=== PATIENT | female | born 1950 | race Caucasian/White ===

== ENCOUNTER → 2017-10-28 | Outpatient (CLI) | payer BC ==
--- NOTE | 2017-10-28 17:16 | US ---
HISTORY: Chronic renal disease. Study: Renal ultrasound Comparison: None. Technique: Multiple bojorquez scale and color flow Doppler images of the kidneys were obtained. The regio n of the urinary bladder was partially decompressed and not well evaluated. Findings: The right kidney is normal in echotexture and size. The right kidney measures 12 x 6 x 5 cm. No focal mass, hydronephrosis, or stones identified. The left kidney is unremarkable in its echotexture and size. The left kidney measures 9 x 5 x 5 cm. N o focal mass, hydronephrosis, or stone can be seen within the left kidney. IMPRESSION: 1. Unremarkable evaluation of the kidneys. Reported By:
== END ==
LOC: RAD 13:40
PROVIDERS: ATTEND Internal Medicine
DX: N18.2 Chronic kidney disease, stage 2 (mild) (principal)
CPT/HCPCS: 76770

== ENCOUNTER → 2017-11-06 | Outpatient (CLI) | payer BC | LOC: LAB 16:42 | PROVIDERS: ATTEND Internal Medicine | DX: Z79.899 Other long term (current) drug therapy (principal) ==

== ENCOUNTER 2020-01-27 19:40 | Inpatient (IN) ==
[2020-01-27] MEDS ORDERED: NS 1000 ML 1,000 ML ONE (19:55)
--- NOTE | 2020-01-27 20:08 | RAD ---
HISTORYPATIENT AMBULATORY INTO ED WITH C/O SOB AND DEHYDRATION; PATIENT WAS INFORMED TODAY BY PCP THAT SHE IS COVID +; PATIENT IS PALE AND DIAPHORETICSTUDYCHEST, 1 [id number]/20/2020FINDINGSThe heart is borderline enlarged but unchanged. The pulmonary vessels are normal. There is some hazy opacity along the left lung base laterally which is more apparent. No effusion is seen.IMPRESSIONHazy left basilar opacity seen laterally which could represent early infiltrate from pneumonia but is ill-defined. Recommend short-term follow-up.Electronically signed by: MATIAS KRAFT (Jan 27, 2020 20:07:58)
[2020-01-27 20:16] LABS: BASOPHILS % (AUTO) 0.1 % (0.2-1.0); HEMATOCRIT 41.3 % (36.0-47.0); LYMPHOCYTES # (AUTO) 0.6 X10^3/uL (1.3-2.9); LYMPHOCYTES % (AUTO) 20.1 % (21.0-51.0); MEAN CORPUSCULAR HEMOGLOBIN 28.5 pg (27.0-34.0); MEAN CORPUSCULAR HGB CONC 33.9 g/dL (33.0-35.0); MEAN CORPUSCULAR VOLUME 84.2 fL (80.0-100.0); MONOCYTES # (AUTO) 0.2 x10^3/uL (0.3-0.8); MONOCYTES % (AUTO) 8.5 % (0.0-13.0); NEUTROPHILS # (AUTO) 2.1 x10^3/uL (2.2-4.8); NEUTROPHILS % (AUTO) 71.3 % (42.0-75.0); PLATELET COUNT 142 X10^3/uL (150.0-450.0); RED CELL DISTRIBUTION WIDTH 13.8 % (11.6-16.5); WHITE BLOOD COUNT 2.9 X10^3/uL (3.6-10.0)
--- NOTE | 2020-01-27 20:24 | DR.SOBA ---
HPI Time Seen Time Seen by Provider: 01/27/20 20:07 Primary Care Physician Primary Care Physician: HUSSAIN MILLAN Complaints Chief Complaint Doctors Comments: A 69 y/o female presenting with SOB ongoing x 6 days ago. She has non-productive cough and a headache. She denies fever or chills. She was tested for COVID-19 2 days ago and got her positive result today. She had mentioned to her PCP about the dyspnea and it was recommended to her to go to an ED to be evaluated. She was noted with O2 sat in the 80s on R/A while being triaged. Chief Complaint:: PATIENT AMBULATORY INTO ED WITH C/O SOB AND DEHYDRATION; PATIENT WAS INFORMED TODAY BY PCP THAT SHE IS COVID +; PATIENT IS PALE AND DIAPHORETIC UPON ARRIVAL; O2 SAT ON ROOM AIR NOTED AT 84%. PATIENT IMMEDIATELY PLACED ON NC AT 2LPM; 02 SAT UP TO 91%. Self Treatment fo Chief Complaint: PRESCRIPTION MEDS PER PCP COVID-19 Coronavirus risk:travel/contact w/high risk person: Yes Has patient experienced Coronavirus symptoms: Yes Coronavirus symptoms experienced: Fever and Shortness of Breath Reviewed Nurses Notes Reviewed: Yes Source History Provided: Patient and Family Member Mode of Arrival Mode of Arrival: Ambulatory Timing Onset of Chief Complaint: 01/25/20 Context Onset:: At Rest and With Light Exertion PE Risk Factors:: None History of:: None Currently on:: Neither Prehospital Care:: None Modifying Factors Worsens:: Exertion Improves:: Nothing PMH PMH Past Medical History: Yes Past Medical History: GERD and Hypertension Past Medical History Comment: COVID + Past Surgical History: No Surgical History: Hysterectomy and Other Family History History of Family Medical Conditions: No Family Medical History: Diabetes Mellitus and Hypertension Social History Alcohol Use: None Do you use any recreational Drugs:: No Lives With: Spouse Lives Where: Home Travel Risk Coronavirus risk:travel/contact w/high risk person: Yes Has patient experienced Coronavirus symptoms: Yes Coronavirus symptoms experienced: Fever and Shortness of Breath Infectious screening Have you traveled outside the country in the last 6 months?: No Isolation: Droplet ROS Review of Systems Constitutional: No Symptoms Reported Eyes: No Symptoms Reported ENTM: No Symptoms Reported Respiratoy: Non-Productive Cough and Short of Breath Cardiovascular: No Symptoms Reported Gastrointestinal/Abdominal: No Symptoms Reported Genitourinary: No Symptoms Reported Neurological: Headache Musculoskeletal: No Symptoms Reported Integumentary: No Symptoms Reported Hematologic/Lymphatic: No Symptoms Reported Endocrine: No Symptoms Reported Psychiatric: No Symptoms Reported PE Vital Signs Vitals: Pulse Rate 97 Respiratory Rate 21 Blood Pressure [Left Arm] 147/67 Blood Pressure 151/68 O2 Sat by Pulse Oximetry 97 General Limitations: No Limitations General Appearance: Alert and In No Apparent Distress Head Head Exam: Normal Inspection, Atraumatic and Normocephalic Eyes Eye exam: Normal Appearance and EOMI ENT ENT Exam: Normal Exam, Normal Oropharynx, Normal External Ear Exam and Mucous Membranes Moist Neck Neck Exam: Normal Inspection, Full ROM and Trachea Midline Chest Chest Inspection: Normal Inspection and Symmetric Chest Wall Rise Respiratory Respiratory Exam: Bilateral: Wheezing and Bilateral: Rhonchi Cardiovascular Cardiovascular Exam: Regular Rate, Normal Rhythm, Normal Heart Sounds, +S1 and +S2 Abdominal Exam Abdominal Exam: Normal Inspection, Normal Bowel Sounds and Soft Extremities Extremities Exam: Normal Inspection and Full ROM Back Back Exam: Normal Inspection and Full ROM Neurologic Neurological Exam: Alert and Oriented X3 Psychiatric Psychiatric Exam: Normal Affect and Normal Mood Skin Skin Exam: Dry and Normal Color COURSE Reevaluation 1st: Unchanged Education/Counseling Education/Counseling: Patient, Family, Education and Counseling Educated On: Treatment, Diagnosis, Prognosis and Needs for Follow Up ROR Labs Reviewed Laboratory Results Reviewed?: Yes Result Diagrams: 01/27/20 20:08 01/27/20 20:08 Laboratory: WBC 2.9 X10^3/uL (3.6-10.0) L 01/27/20 20:08 RBC 4.90 X10^6/uL (3.5-5.4) 01/27/20 20:08 Hgb 14.0 g/dL (12.0-16.0) 01/27/20 20:08 Hct 41.3 % (36.0-47.0) 01/27/20 20:08 MCV 84.2 fL (80.0-100.0) 01/27/20 20:08 MCH 28.5 pg (27.0-34.0) 01/27/20 20:08 MCHC 33.9 g/dL (33.0-35.0) 01/27/20 20:08 RDW 13.8 % (11.6-16.5) 01/27/20 20:08 Plt Count 142 X10^3/uL (150.0-450.0) L 01/27/20 20:08 MPV 7.0 fL (7.4-11.0) L 01/27/20 20:08 Neut % (Auto) 71.3 % (42.0-75.0) 01/27/20 20:08 Lymph % (Auto) 20.1 % (21.0-51.0) L 01/27/20 20:08 [place] % (Auto) 8.5 % (0.0-13.0) 01/27/20 20:08 Eos % (Auto) 0.0 % (0.9-2.9) L 01/27/20 20:08 Baso % (Auto) 0.1 % (0.2-1.0) L 01/27/20 20:08 Neut # (Auto) 2.1 x10^3/uL (2.2-4.8) L 01/27/20 20:08 Lymph # (Auto) 0.6 X10^3/uL (1.3-2.9) L 01/27/20 20:08 [place] # (Auto) 0.2 x10^3/uL (0.3-0.8) L 01/27/20 20:08 Eos # (Auto) 0.0 x10^3/uL (0.0-0.2) 01/27/20 20:08 Baso # (Auto) 0.0 X10^3/uL (0.0-0.1) 01/27/20 20:08 Absolute Nucleated RBC 0.0 /100WBC 01/27/20 20:08 Sample Site Rr 01/27/20 20:16 ABG pH 7.480 (7.35-7.45) H 01/27/20 20:16 ABG pCO2 57.0 mmHg (35.0-45.0) H* 01/27/20 20:16 ABG pO2 58.0 mmHg (80.0-100.0) L 01/27/20 20:16 ABG HCO3 42.4 mmol/L (22-26) H* 01/27/20 20:16 ABG O2 Saturation 92.0 % (90-100) 01/27/20 20:16 ABG Base Excess 16.2 mmol/L (-2.0-2.0) H 01/27/20 20:16 Dominik Test Pos 01/27/20 20:16 A-a Gradient 70.0 mmHg 01/27/20 20:16 FiO2 28.0 01/27/20 20:16 Blood Gas Comments Wilian well sw 01/27/20 20:16 Sodium 140 mmol/L (136-145) 01/27/20 20:08 Corrected Sodium 141 mmol/L (136-145) 01/27/20 20:08 Potassium 3.2 mmol/L (3.5-5.1) L 01/27/20 20:08 Chloride 96 mmol/L (98-107) L 01/27/20 20:08 Carbon Dioxide 36.8 mmol/L (21-32) H 01/27/20 20:08 BUN 17 mg/dL (7-18) 01/27/20 20:08 Creatinine 1.31 mg/dL (0.55-1.02) H 01/27/20 20:08 Est GFR (MDRD) Af Amer 52 (>60) L 01/27/20 20:08 Est GFR (MDRD) Non-Af 43 (>60) L 01/27/20 20:08 Glucose 149 mg/dL (65-99) H 01/27/20 20:08 Calcium 8.7 mg/dL (8.5-10.1) 01/27/20 20:08 Corrected Calcium 9.3 mg/dL (8.5-10.1) 01/27/20 20:08 Ferritin 396 ng/mL (8-252) H 01/27/20 20:08 Total Bilirubin 0.70 mg/dL (0.2-1.0) 01/27/20 20:08 AST 49 Units/L (15-37) H 01/27/20 20:08 ALT 27 Units/L (12-78) 01/27/20 20:08 Alkaline Phosphatase 85 Units/L (46-116) 01/27/20 20:08 C-Reactive Protein 49.80 mg/L (0-3.0) H 01/27/20 20:08 Total Protein 7.7 g/dL (6.4-8.2) 01/27/20 20:08 Albumin 3.2 g/dL (3.4-5.0) L 08/12/20 20:08 Globulin 4.5 g/dL (2.5-4.5) 01/27/20 20:08 Albumin/Globulin Ratio 0.7 Ratio (1.1-2.1) L 01/27/20 20:08 Opioid Opioid Risk Tool Age ([place] box if 16-45): No History of Preadolescent Sexual Abuse: No Total: 0 Total Score Risk Category: Low Risk Copyright: [facility] predicting aberrant behaviors Diagnosis Discharge Problem: Lobar pneumonia, Acute hypokalemia, COVID-19 virus infection ADDITIONAL NOTES Additional Notes Additional Notes: [id number] 1950 Sex: F Location: ER Order Number(s): [id number] Procedure(s):CHEST, 1 VIEW Ordering Physician: KATHERINE BRANTLEY Primary Care: MILI MILLAN Service Date: 01/27/20 Service Time: 1950 HISTORY PATIENT AMBULATORY INTO ED WITH C/O SOB AND DEHYDRATION; PATIENT WAS INFORMED TODAY BY PCP THAT SHE IS COVID +; PATIENT IS PALE AND DIAPHORETIC STUDY CHEST, 1 VIEW COMPARISON 07/06/2019 FINDINGS The heart is borderline enlarged but unchanged. The pulmonary vessels are normal. There is some hazy opacity along the left lung base laterally which is more apparent. No effusion is seen. IMPRESSION Hazy left basilar opacity seen laterally which could represent early infiltrate from pneumonia but is ill-defined. Recommend short-term follow-up. Electronically signed by: MATIAS KRAFT (Jan 27, 2020 20:07:58)
[2020-01-27 20:27] LABS: ALBUMIN 3.2 g/dL (3.4-5.0); CALCIUM 8.7 mg/dL (8.5-10.1); CARBON DIOXIDE 36.8 mmol/L (21-32); COR CA(FOR HYPOALB) 9.3 mg/dL (8.5-10.1); CREATININE 1.31 mg/dL (0.55-1.02); TOTAL PROTEIN 7.7 g/dL (6.4-8.2)
[2020-01-27 20:41] LABS: ABG BASE EXCESS 16.2 mmol/L (-2.0-2.0)
[2020-01-27 20:42] LABS: ABG ALLEN TEST POS; ABG HCO3 42.4 mmol/L (22-26)
[2020-01-27] MEDS ORDERED: ROCEPHIN VIAL 1 GRAM 1 G in NS 100 ML IV + SPIKE MINIBAG* 100 ML IV ONE (21:47)
[2020-01-27] MEDS ORDERED: NS 100 ML IV + SPIKE MINIBAG* 100 ML IV ONE (21:49)
[2020-01-27] MEDS ORDERED: ROCEPHIN VIAL 1 GRAM ONE (21:49)
[2020-01-27] MEDS ORDERED: POTASSIUM CHLORIDE LIQ 20 MEQ UDC PO ONE (22:34)
[2020-01-27] MEDS ORDERED: POTASSIUM CHLORIDE LIQ 20 MEQ UDC ONE (22:38)
[2020-01-27] MEDS ORDERED: NS 1000 ML 1,000 ML IV SCH (23:00)
[2020-01-28] MEDS ORDERED: NS 1000 ML 1,000 ML ONE (01:18)
[2020-01-28] MEDS ORDERED: NS 100 ML IV 100 ML IV ONE (01:18)
[2020-01-28] MEDS ORDERED: ASCORBIC ACID INJ MULTI-DOSE VIAL IV ONE (01:20)
[2020-01-28 01:56] LABS: ABG BASE EXCESS 16.1 mmol/L (-2.0-2.0)
[2020-01-28 01:57] LABS: ABG ALLEN TEST POS; ABG HCO3 42.7 mmol/L (22-26)
[2020-01-28] MEDS: ASCORBIC ACID INJ MULTI-DOSE VIAL 1,500 MG in NS 100 ML IV 100 ML IV SCH ×2 (02:22→09:05)
[2020-01-28] MEDS: NS 1000 ML 1,000 ML IV SCH (04:25)
[2020-01-28] MEDS ORDERED: XANAX ONE (04:27)
[2020-01-28] MEDS: XANAX PO SCH ×3 (05:37→22:43)
[2020-01-28 06:13] LABS: BASOPHILS % (AUTO) 0.3 % (0.2-1.0); EOSINOPHILS % (AUTO) 0.1 % (0.9-2.9); HEMATOCRIT 36.7 % (36.0-47.0); HEMOGLOBIN 12.4 g/dL (12.0-16.0); LYMPHOCYTES % (AUTO) 27.5 % (21.0-51.0); MEAN CORPUSCULAR HEMOGLOBIN 28.5 pg (27.0-34.0); MEAN CORPUSCULAR HGB CONC 33.8 g/dL (33.0-35.0); MEAN CORPUSCULAR VOLUME 84.4 fL (80.0-100.0); MEAN PLATELET VOLUME 7.5 fL (7.4-11.0); MONOCYTES # (AUTO) 0.4 x10^3/uL (0.3-0.8); MONOCYTES % (AUTO) 10.5 % (0.0-13.0); NEUTROPHILS # (AUTO) 2.3 x10^3/uL (2.2-4.8); NEUTROPHILS % (AUTO) 61.6 % (42.0-75.0); PLATELET COUNT 130 X10^3/uL (150.0-450.0); RED BLOOD COUNT 4.34 X10^6/uL (3.5-5.4); RED CELL DISTRIBUTION WIDTH 13.7 % (11.6-16.5); WHITE BLOOD COUNT 3.8 X10^3/uL (3.6-10.0)
[2020-01-28 07:27] LABS: ALANINE AMINOTRANSFERASE 21 Units/L (12-78); ALBUMIN 2.7 g/dL (3.4-5.0); ALKALINE PHOSPHATASE 64 Units/L (46-116); ASPARTATE AMINO TRANSFERASE 36 Units/L (15-37); BLOOD UREA NITROGEN 17 mg/dL (7-18); CALCIUM 7.7 mg/dL (8.5-10.1); CARBON DIOXIDE 37.5 mmol/L (21-32); CHLORIDE 101 mmol/L (98-107); COR CA(FOR HYPOALB) 8.7 mg/dL (8.5-10.1); CREATININE 1.05 mg/dL (0.55-1.02); SODIUM 142 mmol/L (136-145); TOTAL PROTEIN 6.2 g/dL (6.4-8.2); eGFR NON BLACK RACES 56 (>60)
[2020-01-28] MEDS ORDERED: POTASSIUM CHLORIDE LIQ 20 MEQ UDC PO PRN (08:02)
[2020-01-28] MEDS ORDERED: MICRO K EXTEN CAP 10 MEQ PO PRN (08:02)
[2020-01-28] MEDS ORDERED: POTASSIUM CHL 60 MEQ/NS 0.45% 500 ML IV PRN (08:02)
[2020-01-28] MEDS ORDERED: POTASSIUM CHL 40 MEQ/NS 0.45% 500 ML IV PRN (08:02)
[2020-01-28] MEDS ORDERED: LEXAPRO ONE (08:44)
[2020-01-28] MEDS ORDERED: PATIENT'S HOME MEDICATION (Levocetirizine 5 MG) PO SCH (09:00)
[2020-01-28] MEDS ORDERED: VITAMIN A PO SCH (09:00)
[2020-01-28] MEDS ORDERED: MEMANTINE DONEPEZIL PO SCH (09:00)
[2020-01-28] MEDS ORDERED: PLAQUENIL PO SCH (09:00)
[2020-01-28] MEDS ORDERED: VITAMIN D (1.25MG) PO SCH (09:00)
[2020-01-28] MEDS ORDERED: DECADRON TAB PO SCH (09:00)
[2020-01-28] MEDS: ASPIRIN EC 81 MG PO SCH (09:05)
[2020-01-28] MEDS: ZINC SULFATE PO SCH ×2 (09:06→20:17)
[2020-01-28] MEDS: ZyrTEC TAB 10 MG PO SCH (09:06)
[2020-01-28] MEDS: PriLOSEC PO SCH (09:07)
[2020-01-28] MEDS: HYDROCHLOROTHIAZIDE 25 MG TAB PO SCH (09:08)
[2020-01-28] MEDS: PLAVIX PO SCH (09:09)
[2020-01-28] MEDS: LEXAPRO PO SCH (09:10)
[2020-01-28] MEDS: LOVENOX INJ 30 MG SYR SC SCH ×2 (09:10→20:21)
[2020-01-28] MEDS ORDERED: SOLU-Medrol 125 MG VIAL ONE (10:13)
[2020-01-28] MEDS ORDERED: ZITHROMAX INJ 500 MG VIAL IV ONE (10:14)
[2020-01-28] MEDS ORDERED: NS 250 ML IV 250 ML IV ONE (10:17)
[2020-01-28] MEDS: SOLU-Medrol 40 MG VIAL IVP SCH ×3 (10:50→22:43)
[2020-01-28] MEDS: ZITHROMAX INJ 500 MG VIAL 500 MG in NS 250 ML IV 250 ML IV SCH (11:01)
[2020-01-28] MEDS: PULMICORT NEB TX 0.5 MG NEB SCH ×3 (13:00→21:00)
[2020-01-28] MEDS: DUONEB 0.5 MG/3 MG (3 mL) NEB PRN ×2 (13:00→21:00)
[2020-01-28] MEDS: K-DUR TAB 20 MEQ PO PRN (13:35)
[2020-01-28] MEDS: MAGNESIUM SULFATE 1 GRAM/100 mL PREMIX 1 GM/100 ML BAG IV PRN ×2 (16:00→17:54)
--- NOTE | 2020-01-28 21:07 | DR.H&P ---
H&P - History & Physical for Day of: H&P Date: 01/28/20 - Chief Complaint Chief Complaint: COUGH, SOB, HEADACHE, COVID POSITIVE - History of Present Illness History of Present Illness: IS A 69 YEAR OLD PATIENT OF HUSSAIN MILLAN. SHE PRESENTED TO THE HOSPITAL WITH REPORTS OF SHORTNESS OF BREATH, NON- PRODUCTIVE COUGH, AND HEADACHE. SYMPTOMS HAVE BEEN PRESENT FOR THE PAST 6 DAYS. SHE REPORTS THAT SHE RECEIVED A POSITIVE COVID-19 RESULT YESTERDAY. PATIENT REPORTS THAT HER OXYGEN SATURATIONS WERE IN THE LOW 80s ON ROOM AIR. SHE REPORTS TAKING AZITHROMYCIN 250MG DAILY AND HYDROXYCHLOROQUINE 200MG PO BID X 1 DAY. SHE DENIES IMPROVEMENT IN SYMPTOMS. HER PAST MEDICAL HISTORY INCLUDES: CVA, CAD, HTN, PNEUMONIA, GERD, HYSTERECTOMY, ANXIETY, DEPRESSION, BOWEL RESECTION, HYSTERECTOMY, AND TONSILLECTOMY. ON ARRIVAL TO THE ER, VITALS WERE 9 8.3-66-24-84%NC-115/73. LABS WERE OBTAINED. ABNORMAL LAB VALUES INCLUDE THE FOLLOWING: WBC 2.9, PLT COUNT 142, POTASSIUM 3.2, CHLORIDE 96, CARBON DIOXIDE 36.8, CREATININE 1.31, GLUCOSE 149, FERRITIN 396, AST 49, CRP 49.80, ALBUMIN 3.2. COVID-19 POSITIVE. A CHEST XRAY WAS OBTAINED. ABNORMAL LAB VALUES INCLUDE THE FOLLOWING: Hazy left basilar opacity seen laterally which could represent early infiltrate from pneumonia but is ill-defined. SHE WAS PLACED ON NASAL CANNULA AT 3L/MIN IN THE ER. WHEN TAKEN OFF OF OXYGEN, HER SATURATIONS DROPPED TO 80 AGAIN. SHE WAS GIVEN ROCEPHIN 1G IV X 1, POTASSIUM 20MEQ X 1 IN THE ER. SHE WAS ADMITTED FOR FURTHER EVALUATION AND TREATMENT OF PNEUMONIA DUE TO COVID- 19, HYPOXIA, AND HYPOKALEMIA. SHE WAS STARTED ON NORMAL SALINE AT [facility], AZITHROMYCIN 500MG IV DAILY, REMDESIVIR 200MG IV X 1 DOSE, THEN 100MG IV DAILY, SOLU-MEDROL 80MG IV Q8H, DUONEBS PRN, PULMICORT NEBS BID, LOVENOX 30MG SC BID, THE POTASSIUM AND MAGNESIUM PROTOCOLS, AND HOME MEDICATIONS WERE RESUMED. WE WILL ORDER CONVALESCENT PLASMA TO BE TRANSFUSED WHEN IT IS AVAILABLE. OTHERWISE, WE PLAN TO FOLLOW UP WITH AM LABS AND CONTINUE TO MONITOR. - Past Medical History Past Medical History: Anxiety, Coronary Artery Disease, CVA, Depression, GERD, Hypertension - Past Surgical History Surgical History: Abdominal Surgery, Bowel Resection, Hysterectomy, Tonsillectomy - Family History Family Medical History: Diabetes Mellitus, Hypertension - Social History Alcohol Use: None Drug Use: None - Medications Home Medications: levofloxacin Allergy (Verified 01/27/20 21:24) CONTINUE taking the following medications azithromycin 250 mg PO DAILY 01/27/20 [History] clopidogrel 75 mg PO DAILY 01/27/20 [History] hydrochlorothiazide 50 mg PO DAILY 01/27/20 [History] hydroxychloroquine 200 mg PO BID 01/27/20 [History] meclizine 25 mg PO TID 01/27/20 [History] memantine-donepezil [Namzaric] 1 cap PO DAILY 01/27/20 [History] omeprazole 40 mg PO DAILY 01/27/20 [History] prednisone 20 mg PO DAILY 01/27/20 [History] - Review of Systems Constitutional: See HPI, Weakness, Malaise Eyes: No Symptoms Reported ENT: No Symptoms Reported Respiratory: See HPI, Cough, Shortness of Breath, SOB with Excertion Cardiovascular: No Symptoms Reported Gastrointestinal: No Symptoms Reported Genitourinary: No Symptoms Reported Musculoskeletal: No Symptoms Reported Skin: No Symptoms Reported Neurological: Weakness - Physical Exam Vital Signs: Temperature 97.5 F Pulse Rate [Left Brachial] 65 Pulse Rate 79 Respiratory Rate 18 Blood Pressure [Left Arm] 121/58 Blood Pressure 151/68 O2 Sat by Pulse Oximetry 92 Oriented: Normal Eyes: Normal Ear: Normal Nose: Normal Throat: Normal Respiratory: Wheezes Throughout Cardiovascular: Normal : Normal Auscultation: Bowel Sounds: Normal Palpation: Normal Tenderness: Normal Skin: Normal Musculoskeletal: Normal Psychiatric: Normal Mood Description: Calm Affect: Normal Speech Pattern: Clear - Assessment/Plan (1) Pneumonia due to 2019 novel coronavirus Status: Acute Plan: NORMAL SALINE AT [facility], AZITHROMYCIN 500MG IV DAILY, REMDESIVIR 200MG IV X 1 DOSE, THEN 100MG IV DAILY, SOLU-MEDROL 80MG IV Q8H, DUONEBS PRN, PULMICORT NEBS BID, LOVENOX 30MG SC BID, THE POTASSIUM AND MAGNESIUM PROTOCOLS, AND HOME MEDICATIONS WERE RESUMED. WE WILL ORDER CONVALESCENT PLASMA TO BE TRANSFUSED WHEN IT IS AVAILABLE. (2) Hypoxia Status: Acute (3) Acute hypokalemia Status: Acute (4) Lobar pneumonia Status: Acute - Allergies Allergies/Adverse Reactions: Allergies Allergy/AdvReac Type Severity Reaction Status Date / Time levofloxacin Allergy Verified 01/27/20 21:24
[2020-01-29 04:25] LABS: ABG BASE EXCESS 7.3 mmol/L (-2.0-2.0)
[2020-01-29] MEDS: ROBITUSSIN DM PO PRN ×3 (04:25→20:15)
[2020-01-29 04:27] LABS: ABG HCO3 33.1 mmol/L (22-26)
[2020-01-29 04:28] LABS: ABG ALLEN TEST POS
[2020-01-29] MEDS: DUONEB 0.5 MG/3 MG (3 mL) NEB PRN ×2 (04:45→10:20)
[2020-01-29 05:06] LABS: BILIRUBIN,URINE NEGATIVE (NEGATIVE); BLOOD/HEMOGLOBIN,URINE NEGATIVE (NEGATIVE); GLUCOSE, URINE 1+ (NEGATIVE); KETONES,URINE 1+ (NEGATIVE); LEUKOCYTE ESTERASE ,URINE NEGATIVE (NEGATIVE); NITRITES,URINE NEGATIVE (NEGATIVE); PROTEIN,URINE 1+ (NEGATIVE); UROBILINOGEN,URINE NORMAL (NORMAL)
[2020-01-29 05:12] LABS: APPEARANCE,URINE CLEAR (CLEAR); BACTERIA,URINE NEGATIVE /HPF (NEGATIVE); COLOR,URINE YELLOW (YELLOW); RBC,URINE NONE SEEN /HPF (0-3); SQUAMOUS EPITHELIAL CELL,UR RARE /HPF (NEGATIVE)
[2020-01-29] MEDS: XANAX PO SCH ×3 (05:16→21:44)
[2020-01-29] MEDS: SOLU-Medrol 40 MG VIAL IVP SCH ×3 (05:16→21:44)
[2020-01-29] MEDS: NS 1000 ML 1,000 ML IV SCH (05:17)
[2020-01-29 05:41] LABS: BASOPHILS % (AUTO) 0.2 % (0.2-1.0); HEMATOCRIT 39.8 % (36.0-47.0); HEMOGLOBIN 13.7 g/dL (12.0-16.0); LYMPHOCYTES % (AUTO) 27.3 % (21.0-51.0); MEAN CORPUSCULAR HEMOGLOBIN 29.3 pg (27.0-34.0); MEAN CORPUSCULAR HGB CONC 34.3 g/dL (33.0-35.0); MEAN CORPUSCULAR VOLUME 85.3 fL (80.0-100.0); MEAN PLATELET VOLUME 8.2 fL (7.4-11.0); MONOCYTES # (AUTO) 0.2 x10^3/uL (0.3-0.8); MONOCYTES % (AUTO) 4.9 % (0.0-13.0); NEUTROPHILS # (AUTO) 2.6 x10^3/uL (2.2-4.8); NEUTROPHILS % (AUTO) 67.6 % (42.0-75.0); PLATELET COUNT 203 X10^3/uL (150.0-450.0); RED BLOOD COUNT 4.67 X10^6/uL (3.5-5.4); RED CELL DISTRIBUTION WIDTH 13.7 % (11.6-16.5); WHITE BLOOD COUNT 3.8 X10^3/uL (3.6-10.0)
[2020-01-29 05:51] LABS: ALBUMIN 2.9 g/dL (3.4-5.0); CALCIUM 8.3 mg/dL (8.5-10.1); CARBON DIOXIDE 33.2 mmol/L (21-32); COR CA(FOR HYPOALB) 9.2 mg/dL (8.5-10.1); CREATININE 1.4 mg/dL (0.55-1.02); TOTAL PROTEIN 7.2 g/dL (6.4-8.2)
--- NOTE | 2020-01-29 06:18 | RAD ---
HISTORYShortness of breath, COVID-19STUDYChest AP [id number]/12/2020FINDINGSThe heart is mildly enlarged. No congestive heart failure is noted. The lungs are mildly hypoinflated. The right lung is clear. Subtle ground-glass infiltrates are present peripherally on the left unchanged from the prior examination. No pleural effusions are identified. Bony thorax is unremarkable.IMPRESSIONNo change left-sided peripheral ground-glass infiltratesNo change mild hypo inflationElectronically signed by: RACHNA GAGE (Jan 29, 2020 06:17:12)
[2020-01-29] MEDS: KLOR-CON PO PRN (06:30)
[2020-01-29] MEDS ORDERED: LEXAPRO ONE (07:51)
[2020-01-29] MEDS ORDERED: PriLOSEC PO ONE (07:59)
[2020-01-29] MEDS ORDERED: ZINC SULFATE ONE (08:00)
[2020-01-29] MEDS ORDERED: NAMENDA TAB 10 MG ONE (08:01)
[2020-01-29] MEDS: REMDESIVIR (INVESTIGATIONAL DRUG GS-5734) 100 MG in NS 250 ML IV 250 ML IV SCH (08:33)
[2020-01-29] MEDS: ZINC SULFATE PO SCH ×2 (08:35→20:13)
[2020-01-29] MEDS: ASPIRIN EC 81 MG PO SCH (08:37)
[2020-01-29] MEDS: HYDROCHLOROTHIAZIDE 25 MG TAB PO SCH (08:37)
[2020-01-29] MEDS: PriLOSEC PO SCH (08:38)
[2020-01-29] MEDS: PLAVIX PO SCH (08:39)
[2020-01-29] MEDS: LOVENOX INJ 30 MG SYR SC SCH ×2 (08:42→20:12)
[2020-01-29] MEDS: LEXAPRO PO SCH (08:42)
[2020-01-29] MEDS: ZyrTEC TAB 10 MG PO SCH (08:44)
[2020-01-29] MEDS: NAMENDA TAB 10 MG PO SCH (08:57)
[2020-01-29] MEDS: ZITHROMAX INJ 500 MG VIAL 500 MG in NS 250 ML IV 250 ML IV SCH (10:01)
[2020-01-29] MEDS: PULMICORT NEB TX 0.5 MG NEB SCH ×2 (10:20→20:50)
[2020-01-29] MEDS: MUCOMYST 20% 200 MG/ML NEB SCH ×2 (13:30→20:50)
[2020-01-29] MEDS: DUONEB 0.5 MG/3 MG (3 mL) NEB SCH ×3 (13:30→20:50)
[2020-01-29] MEDS ORDERED: NS 250 ML IV 250 ML IV ONE (19:18)
[2020-01-29] MEDS: TYLENOL 325 MG TAB PO PRN (20:23)
[2020-01-29] MEDS: K-RIDER 10 MEQ/NS 100 ML 10 MEQ/100 ML BAG IV PRN ×3 (20:25→23:26)
[2020-01-30] MEDS: K-RIDER 10 MEQ/NS 100 ML 10 MEQ/100 ML BAG IV PRN (02:30)
[2020-01-30] MEDS: NS 1000 ML 1,000 ML IV SCH (02:34)
[2020-01-30 05:40] LABS: ABG BASE EXCESS 13.5 mmol/L (-2.0-2.0)
[2020-01-30 05:41] LABS: ABG ALLEN TEST POS; ABG HCO3 37.6 mmol/L (22-26)
[2020-01-30] MEDS: DUONEB 0.5 MG/3 MG (3 mL) NEB SCH ×5 (06:00→20:30)
[2020-01-30] MEDS: SOLU-Medrol 40 MG VIAL IVP SCH ×3 (06:14→21:22)
[2020-01-30] MEDS: XANAX PO SCH ×3 (06:14→21:23)
[2020-01-30] MEDS: TYLENOL 325 MG TAB PO PRN ×2 (06:15→21:24)
[2020-01-30] MEDS: ROBITUSSIN DM PO PRN ×3 (06:41→17:51)
[2020-01-30 06:42] LABS: BASOPHILS % (AUTO) 0 % (0.2-1.0); HEMATOCRIT 34.8 % (36.0-47.0); LYMPHOCYTES # (AUTO) 0.5 X10^3/uL (1.3-2.9); LYMPHOCYTES % (AUTO) 6.4 % (21.0-51.0); MEAN CORPUSCULAR HEMOGLOBIN 28.8 pg (27.0-34.0); MEAN CORPUSCULAR HGB CONC 34.3 g/dL (33.0-35.0); MEAN CORPUSCULAR VOLUME 83.8 fL (80.0-100.0); MEAN PLATELET VOLUME 7.4 fL (7.4-11.0); MONOCYTES # (AUTO) 0.3 x10^3/uL (0.3-0.8); NEUTROPHILS # (AUTO) 6.9 x10^3/uL (2.2-4.8); NEUTROPHILS % (AUTO) 89.6 % (42.0-75.0); PLATELET COUNT 213 X10^3/uL (150.0-450.0); RED BLOOD COUNT 4.16 X10^6/uL (3.5-5.4); RED CELL DISTRIBUTION WIDTH 13.7 % (11.6-16.5); WHITE BLOOD COUNT 7.7 X10^3/uL (3.6-10.0)
[2020-01-30 06:52] LABS: ALANINE AMINOTRANSFERASE 22 Units/L (12-78); ALBUMIN 2.5 g/dL (3.4-5.0); ALKALINE PHOSPHATASE 65 Units/L (46-116); ASPARTATE AMINO TRANSFERASE 25 Units/L (15-37); BLOOD UREA NITROGEN 17 mg/dL (7-18); CALCIUM 7.9 mg/dL (8.5-10.1); CARBON DIOXIDE 32.7 mmol/L (21-32); CHLORIDE 101 mmol/L (98-107); COR CA(FOR HYPOALB) 9.1 mg/dL (8.5-10.1); COR NA(FOR HYPERGLY) 143 mmol/L (136-145); CREATININE 0.95 mg/dL (0.55-1.02); SODIUM 141 mmol/L (136-145); TOTAL PROTEIN 6.1 g/dL (6.4-8.2); eGFR NON BLACK RACES > 60 (>60)
[2020-01-30] MEDS ORDERED: ARICEPT TAB 10 MG ONE (07:07)
--- NOTE | 2020-01-30 07:34 | RAD ---
HISTORYPneumonia SOBSTUDYPortable AP [id number]/14/2020FINDINGSStable cardiomegaly. Persistent peripheral left-sided infiltrates as before. Increasing airspace disease in the right upper lobe. No definite pneumothorax or large pleural effusion.IMPRESSIONBilateral pulmonary infiltrates consistent with pneumonia, essentially stable on the left and increasing in the right upper lobe.Electronically signed by: ALLA MENEZES (Jan 30, 2020 07:34:01)
[2020-01-30] MEDS: LOVENOX INJ 30 MG SYR SC SCH ×2 (08:09→21:20)
[2020-01-30] MEDS: ZITHROMAX INJ 500 MG VIAL 500 MG in NS 250 ML IV 250 ML IV SCH (08:10)
[2020-01-30] MEDS: ARICEPT TAB 10 MG PO SCH (08:27)
[2020-01-30] MEDS: ASPIRIN EC 81 MG PO SCH (08:28)
[2020-01-30] MEDS: TUSSIONEX PENNKINETIC SUSP PO PRN ×2 (08:29→21:24)
[2020-01-30] MEDS: PLAVIX PO SCH (08:30)
[2020-01-30] MEDS: HYDROCHLOROTHIAZIDE 25 MG TAB PO SCH (08:30)
[2020-01-30] MEDS: PriLOSEC PO SCH (08:33)
[2020-01-30] MEDS: NAMENDA TAB 10 MG PO SCH (08:33)
[2020-01-30] MEDS: ZINC SULFATE PO SCH ×2 (08:36→21:21)
[2020-01-30] MEDS: LEXAPRO PO SCH (08:36)
[2020-01-30] MEDS ORDERED: LEXAPRO ONE (08:36)
[2020-01-30] MEDS: ZyrTEC TAB 10 MG PO SCH (08:37)
[2020-01-30] MEDS: PULMICORT NEB TX 0.5 MG NEB SCH ×2 (10:10→20:30)
[2020-01-30] MEDS: REMDESIVIR (INVESTIGATIONAL DRUG GS-5734) 100 MG in NS 250 ML IV 250 ML IV SCH (10:40)
[2020-01-30] MEDS: MUCOMYST 20% 200 MG/ML NEB SCH ×3 (11:36→20:30)
[2020-01-30] MEDS: K-DUR TAB 20 MEQ PO PRN (14:55)
[2020-01-30] MEDS: COLACE CAP 100 MG PO SCH (21:20)
[2020-01-31] MEDS: NS 1000 ML 1,000 ML IV SCH (01:46)
[2020-01-31 05:30] LABS: ABG ALLEN TEST POS; ABG HCO3 38.4 mmol/L (22-26)
[2020-01-31] MEDS: SOLU-Medrol 40 MG VIAL IVP SCH ×3 (05:58→21:44)
[2020-01-31] MEDS: XANAX PO SCH ×3 (05:58→21:44)
[2020-01-31] MEDS: ROBITUSSIN DM PO PRN ×2 (05:58→20:50)
[2020-01-31 06:25] LABS: BASOPHILS % (AUTO) 0.1 % (0.2-1.0); HEMATOCRIT 34.6 % (36.0-47.0); LYMPHOCYTES # (AUTO) 0.5 X10^3/uL (1.3-2.9); LYMPHOCYTES % (AUTO) 7.1 % (21.0-51.0); MEAN CORPUSCULAR HGB CONC 34.7 g/dL (33.0-35.0); MEAN CORPUSCULAR VOLUME 83.3 fL (80.0-100.0); MEAN PLATELET VOLUME 7.7 fL (7.4-11.0); MONOCYTES # (AUTO) 0.3 x10^3/uL (0.3-0.8); MONOCYTES % (AUTO) 4.3 % (0.0-13.0); NEUTROPHILS # (AUTO) 6.3 x10^3/uL (2.2-4.8); NEUTROPHILS % (AUTO) 88.5 % (42.0-75.0); PLATELET COUNT 239 X10^3/uL (150.0-450.0); RED BLOOD COUNT 4.15 X10^6/uL (3.5-5.4); RED CELL DISTRIBUTION WIDTH 13.9 % (11.6-16.5); WHITE BLOOD COUNT 7.1 X10^3/uL (3.6-10.0)
[2020-01-31 06:52] LABS: ALANINE AMINOTRANSFERASE 23 Units/L (12-78); ALBUMIN 2.5 g/dL (3.4-5.0); ALKALINE PHOSPHATASE 75 Units/L (46-116); ASPARTATE AMINO TRANSFERASE 37 Units/L (15-37); BLOOD UREA NITROGEN 17 mg/dL (7-18); CARBON DIOXIDE 31.9 mmol/L (21-32); CHLORIDE 101 mmol/L (98-107); COR CA(FOR HYPOALB) 9.2 mg/dL (8.5-10.1); COR NA(FOR HYPERGLY) 142 mmol/L (136-145); CREATININE 0.87 mg/dL (0.55-1.02); SODIUM 140 mmol/L (136-145); TOTAL PROTEIN 5.9 g/dL (6.4-8.2); eGFR NON BLACK RACES > 60 (>60)
[2020-01-31] MEDS ORDERED: LEXAPRO ONE (08:24)
[2020-01-31] MEDS: REMDESIVIR (INVESTIGATIONAL DRUG GS-5734) 100 MG in NS 250 ML IV 250 ML IV SCH ×2 (09:22→09:25)
[2020-01-31] MEDS: ZITHROMAX INJ 500 MG VIAL 500 MG in NS 250 ML IV 250 ML IV SCH ×2 (09:23→10:30)
[2020-01-31] MEDS: LOVENOX INJ 30 MG SYR SC SCH ×2 (09:25→21:43)
[2020-01-31] MEDS: PLAVIX PO SCH (09:26)
[2020-01-31] MEDS: ZyrTEC TAB 10 MG PO SCH (09:27)
[2020-01-31] MEDS: K-DUR TAB 20 MEQ PO PRN (09:27)
[2020-01-31] MEDS: PriLOSEC PO SCH (09:28)
[2020-01-31] MEDS: ASPIRIN EC 81 MG PO SCH (09:28)
[2020-01-31] MEDS: LEXAPRO PO SCH (09:28)
[2020-01-31] MEDS: ZINC SULFATE PO SCH ×2 (09:28→20:49)
[2020-01-31] MEDS: HYDROCHLOROTHIAZIDE 25 MG TAB PO SCH (09:29)
[2020-01-31] MEDS: ARICEPT TAB 10 MG PO SCH (09:29)
[2020-01-31] MEDS: NAMENDA TAB 10 MG PO SCH (09:30)
[2020-01-31] MEDS: PULMICORT NEB TX 0.5 MG NEB SCH ×2 (10:10→21:44)
[2020-01-31] MEDS: DUONEB 0.5 MG/3 MG (3 mL) NEB SCH ×4 (10:10→21:44)
[2020-01-31] MEDS: TUSSIONEX PENNKINETIC SUSP PO PRN ×2 (10:51→20:50)
[2020-01-31] MEDS: MUCOMYST 20% 200 MG/ML NEB SCH ×2 (13:35→21:44)
--- NOTE | 2020-01-31 14:07 | RAD ---
HISTORYshortness of breathSTUDYCHEST, 1 VIEWCOMPARISONTwentyFINDINGSThe trachea is midline. The cardiac silhouette is unremarkable . The lungs demonstrate stable right upper lobe left-sided airspace disease unchanged from prior. The bony thorax is unremarkable.IMPRESSIONStable pneumoniaElectronically signed by: ELHAM QUIÑONEZ (Jan 31, 2020 14:06:39)
[2020-01-31] MEDS: PROCALAMINE 3 % 1,000 ML IV SCH (16:50)
[2020-01-31] MEDS: ALBUMIN HUMAN 25%- 100 ML 100 ML IV SCH (16:50)
--- NOTE | 2020-01-31 20:24 | PCM.PROG ---
Progress Note - Progress Note for Day of Date of Exam: 01/29/20 - Subjective Subjective: IS BEING TREATED FOR PNEUMONIA DUE TO COVID-19, HYPOXIA, AND HYPOKALEMIA. TODAY, SHE IS ALERT AND ORIENTED, LYING IN BED ON MORNING ROUNDS. SHE CONTINUES WITH COMPLAINTS OF COUGH, SHORNTESS OF BREATH, WEAKNESS, AND HEADACHE TODAY. ON EXAMINATION, HEART IS REGULAR IN RATE AND RHYTHM. BILATERAL LUNGS ARE NOTED WITH SCATTERED WHEEZING THROUGHOUT. ABDOMEN IS ROUND, SOFT, AND NON-TENDER WITH NORMAL BOWEL SOUNDS NOTED IN ALL QUADRANTS. HER VITALS THIS MORNING ARE: 97.4-66-22-87%SIMPLE MASK-105/51. LABS WERE OBTAINED. ABNORMAL LAB VALUES INCLUDE THE FOLLOWING: POTASSIUM 2.8, CARBON DIOXIDE 33.2, CREATININE 1.40, GLUCOSE 179, CALCIUM 8.3, FERRITIN 380, CRP 35.30, ALBUMIN 2.9. AN ABG WAS OBTAINED AND REVEALED: PH 7.420, PC02 51.0, P02 40.0, HC03 33.1, 02 SATURATION 76.0, BASE EXCESS 7.3, FI02 36.0. A CHEST XRAY WAS OBTAINED AND REVEALED: No change left-sided peripheral ground-glass infiltrates. No change mild hypo inflation. SHE IS CURRENTLY RECEIVING NORMAL SALINE AT [facility], AZITHROMYCIN 500MG IV DAILY, REMDESIVIR 100MG IV DAILY, SOLU-MEDROL 80MG IV Q8H, DUONEBS PRN, PULMICORT NEBS BID, LOVENOX 30MG SC BID, THE POTASSIUM AND MAGNESIUM PROTOCOLS, AND HOME MEDICATIONS WERE RESUMED. WE HAVE ORDERED A UNIT OF CONVALESCENT PLASMA AND WILL TRANSFUSE WHEN IT IS AVAILABLE. WE WILL ALSO ADD MUCOMYST TO NEB [place]. OTHERWISE, WE PLAN TO FOLLOW UP WITH AM LABS, CHEST XRAY, AND ABG AND CONTINUE TO MONITOR. - Past Medical Family Social History Past Med/Fam/Surg Hx: No changes since H&P Allergies: Allergies levofloxacin Allergy (Verified 01/27/20 21:24) - Review of Systems ROS: No change since H&P - Vital Signs and I&O's Vital Signs: Temperature 98.2 F Pulse Rate [Left Brachial] 73 Pulse Rate 77 Respiratory Rate 20 Blood Pressure [Left Arm] 146/61 Blood Pressure 151/68 O2 Sat by Pulse Oximetry 100 Intake and Output: Intake & Output 08/14/20 01/30/20 01/31/20 02/01/20 11:59 11:59 11:59 11:59 Intake Total 871 / 871 1665 / 1665 1383 / 1383 960 / 960 Output Total 300 / 300 1600 / 1600 1700 / 1700 600 / 600 Balance 571 / 571 65 / 65 -317 / -317 360 / 360 - Physical Exam Oriented: Normal Eyes: Normal Ear: Normal Nose: Normal Throat: Normal Respiratory: Generalized, Diminished, Wheezes Cardiovascular: Normal : Normal Auscultation: Bowel Sounds: Normal Tenderness: Normal Skin: Normal Musculoskeletal: Normal Psychiatric: Normal Mood Description: Calm Affect: Normal Speech Pattern: Clear, Appropriate - Laboratory and Diagnostics Result Diagrams: 01/31/20 05:30 01/31/20 05:30 Labs: Laboratory WBC 7.1 X10^3/uL (3.6-10.0) 01/31/20 05:30 RBC 4.15 X10^6/uL (3.5-5.4) 01/31/20 05:30 Hgb 12.0 g/dL (12.0-16.0) 01/31/20 05:30 Hct 34.6 % (36.0-47.0) L 01/31/20 05:30 MCV 83.3 fL (80.0-100.0) 01/31/20 05:30 MCH 29.0 pg (27.0-34.0) 01/31/20 05:30 MCHC 34.7 g/dL (33.0-35.0) 01/31/20 05:30 RDW 13.9 % (11.6-16.5) 01/31/20 05:30 Plt Count 239 X10^3/uL (150.0-450.0) 01/31/20 05:30 MPV 7.7 fL (7.4-11.0) 01/31/20 05:30 Neut % (Auto) 88.5 % (42.0-75.0) H 01/31/20 05:30 Lymph % (Auto) 7.1 % (21.0-51.0) L 01/31/20 05:30 [place] % (Auto) 4.3 % (0.0-13.0) 01/31/20 05:30 Eos % (Auto) 0.0 % (0.9-2.9) L 01/31/20 05:30 Baso % (Auto) 0.1 % (0.2-1.0) L 01/31/20 05:30 Neut # (Auto) 6.3 x10^3/uL (2.2-4.8) H 01/31/20 05:30 Lymph # (Auto) 0.5 X10^3/uL (1.3-2.9) L 01/31/20 05:30 [place] # (Auto) 0.3 x10^3/uL (0.3-0.8) 01/31/20 05:30 Eos # (Auto) 0.0 x10^3/uL (0.0-0.2) 01/31/20 05:30 Baso # (Auto) 0.0 X10^3/uL (0.0-0.1) 01/31/20 05:30 Absolute Nucleated RBC 0.0 /100WBC 01/31/20 05:30 Sample Site Lrad 01/31/20 05:24 ABG pH 7.530 (7.35-7.45) H 01/31/20 05:24 ABG pCO2 46.0 mmHg (35.0-45.0) H 01/31/20 05:24 ABG pO2 71.0 mmHg (80.0-100.0) L 01/31/20 05:24 ABG HCO3 38.4 mmol/L (22-26) H* 01/31/20 05:24 ABG O2 Saturation 96.0 % (90-100) 01/31/20 05:24 ABG Base Excess 14.0 mmol/L (-2.0-2.0) H 01/31/20 05:24 Dominik Test Pos 01/31/20 05:24 A-a Gradient 499.0 mmHg 01/31/20 05:24 FiO2 88.0 01/31/20 05:24 Blood Gas Comments Wilian abg well 01/31/20 05:24 Sodium 140 mmol/L (136-145) 01/31/20 05:30 Corrected Sodium 142 mmol/L (136-145) 01/31/20 05:30 Potassium 3.3 mmol/L (3.5-5.1) L 01/31/20 05:30 Chloride 101 mmol/L (98-107) 01/31/20 05:30 Carbon Dioxide 31.9 mmol/L (21-32) 01/31/20 05:30 BUN 17 mg/dL (7-18) 01/31/20 05:30 Creatinine 0.87 mg/dL (0.55-1.02) 01/31/20 05:30 Est GFR (MDRD) Af Amer > 60 (>60) 01/31/20 05:30 Est GFR (MDRD) Non-Af > 60 (>60) 01/31/20 05:30 Glucose 200 mg/dL (65-99) H 01/31/20 05:30 Calcium 8.0 mg/dL (8.5-10.1) L 01/31/20 05:30 Corrected Calcium 9.2 mg/dL (8.5-10.1) 01/31/20 05:30 Magnesium 2.5 mg/dL (1.7-2.9) 01/29/20 04:05 Ferritin 346 ng/mL (8-252) H 01/31/20 05:30 Total Bilirubin 0.40 mg/dL (0.2-1.0) 01/31/20 05:30 AST 37 Units/L (15-37) 01/31/20 05:30 ALT 23 Units/L (12-78) 01/31/20 05:30 Alkaline Phosphatase 75 Units/L (46-116) 01/31/20 05:30 Troponin I < 0.02 ng/mL (0-1.5) 01/28/20 01:35 C-Reactive Protein 13.70 mg/L (0-3.0) H 01/31/20 05:30 Total Protein 5.9 g/dL (6.4-8.2) L 01/31/20 05:30 Albumin 2.5 g/dL (3.4-5.0) L 01/31/20 05:30 Globulin 3.4 g/dL (2.5-4.5) 01/31/20 05:30 Albumin/Globulin Ratio 0.7 Ratio (1.1-2.1) L 01/31/20 05:30 Specimen Type Catherized urine 01/29/20 04:50 Urine Color Yellow (YELLOW) 01/29/20 04:50 Urine Appearance Clear (CLEAR) 01/29/20 04:50 Urine pH 6.0 (5.0 - 8.0) 01/29/20 04:50 Ur Specific [place] 1.020 (1.000-1.030) 01/29/20 04:50 Urine Protein 1+ (NEGATIVE) 01/29/20 04:50 Urine Glucose (UA) 1+ (NEGATIVE) 01/29/20 04:50 Urine Ketones 1+ (NEGATIVE) 01/29/20 04:50 Urine Occult Blood Negative (NEGATIVE) 01/29/20 04:50 Urine Nitrite Negative (NEGATIVE) 01/29/20 04:50 Urine Bilirubin Negative (NEGATIVE) 01/29/20 04:50 Urine Urobilinogen Normal (NORMAL) 01/29/20 04:50 Ur Leukocyte Esterase Negative (NEGATIVE) 01/29/20 04:50 Urine RBC None seen /HPF (0-3) 01/29/20 04:50 Urine WBC None seen /HPF (0-5) 01/29/20 04:50 Ur Squamous Epith Cells Rare /HPF (NEGATIVE) 01/29/20 04:50 Urine Bacteria Negative /HPF (NEGATIVE) 01/29/20 04:50 Ur Culture Indicated? No/not indicated 01/29/20 04:50 Blood Type A NEGATIVE 01/28/20 01:35 Antibody Screen Negative 01/28/20 01:35 - Plan (1) Pneumonia due to 2019 novel coronavirus Status: Acute Plan: NORMAL SALINE AT [facility], AZITHROMYCIN 500MG IV DAILY, REMDESIVIR 100MG IV DAILY, SOLU-MEDROL 80MG IV Q8H, DUONEBS PRN, PULMICORT NEBS BID, LOVENOX 30MG SC BID, THE POTASSIUM AND MAGNESIUM PROTOCOLS, AND HOME MEDICATIONS WERE RESUMED. W E WILL ORDER CONVALESCENT PLASMA TO BE TRANSFUSED WHEN IT IS AVAILABLE. (2) Hypoxia Status: Acute (3) Acute hypokalemia Status: Acute (4) Lobar pneumonia Status: Acute
[2020-01-31] MEDS: COLACE CAP 100 MG PO SCH (20:49)
[2020-01-31] MEDS ORDERED: LOVENOX INJ 40 MG SYR SC ONE (21:02)
[2020-01-31] MEDS: ZOFRAN INJ 4 MG VIAL IVP PRN (21:50)
[2020-02-01] MEDS: NS 1000 ML 1,000 ML IV SCH (04:27)
[2020-02-01] MEDS: XANAX PO SCH ×3 (05:20→21:54)
[2020-02-01] MEDS: SOLU-Medrol 40 MG VIAL IVP SCH (05:20)
--- NOTE | 2020-02-01 06:04 | RAD ---
HISTORYSOB, PNEUMONIA, COVID +STUDYCHEST, 1 [id number]/16/2020TECHNIQUEAP view of the chestFINDINGSCardiac and mediastinal contours appear normal. Low lung volumes.Soft tissue attenuation limits evaluation. Mildly improved predominantly perihilar airspace opacities. No pleural effusion or pneumothorax.IMPRESSIONMild improved appearance of airspace disease.Electronically signed by: Pino Palacio (Feb 01, 2020 06:03:24)
[2020-02-01 06:09] LABS: ALANINE AMINOTRANSFERASE 27 Units/L (12-78); ALBUMIN 2.8 g/dL (3.4-5.0); ALKALINE PHOSPHATASE 67 Units/L (46-116); ASPARTATE AMINO TRANSFERASE 39 Units/L (15-37); BLOOD UREA NITROGEN 24 mg/dL (7-18); CARBON DIOXIDE 32.5 mmol/L (21-32); CHLORIDE 102 mmol/L (98-107); COR NA(FOR HYPERGLY) 142 mmol/L (136-145); CREATININE 1.02 mg/dL (0.55-1.02); SODIUM 140 mmol/L (136-145); TOTAL PROTEIN 5.9 g/dL (6.4-8.2); eGFR NON BLACK RACES 57 (>60)
[2020-02-01 06:15] LABS: ABG BASE EXCESS 15.2 mmol/L (-2.0-2.0)
[2020-02-01 06:16] LABS: ABG ALLEN TEST POS; ABG HCO3 40.6 mmol/L (22-26)
[2020-02-01 06:18] LABS: BASOPHILS % (AUTO) 0.1 % (0.2-1.0); HEMATOCRIT 36.2 % (36.0-47.0); HEMOGLOBIN 12.2 g/dL (12.0-16.0); LYMPHOCYTES # (AUTO) 0.6 X10^3/uL (1.3-2.9); LYMPHOCYTES % (AUTO) 6.3 % (21.0-51.0); MEAN CORPUSCULAR HEMOGLOBIN 28.6 pg (27.0-34.0); MEAN CORPUSCULAR HGB CONC 33.7 g/dL (33.0-35.0); MEAN PLATELET VOLUME 7.4 fL (7.4-11.0); MONOCYTES # (AUTO) 0.3 x10^3/uL (0.3-0.8); NEUTROPHILS # (AUTO) 8.8 x10^3/uL (2.2-4.8); NEUTROPHILS % (AUTO) 90.6 % (42.0-75.0); PLATELET COUNT 272 X10^3/uL (150.0-450.0); RED BLOOD COUNT 4.26 X10^6/uL (3.5-5.4); RED CELL DISTRIBUTION WIDTH 13.6 % (11.6-16.5); WHITE BLOOD COUNT 9.7 X10^3/uL (3.6-10.0)
[2020-02-01 07:28] LABS: PLATELET MORPHOLOGY COMMENT NORMAL (NORMAL)
[2020-02-01] MEDS ORDERED: LEXAPRO ONE (08:54)
[2020-02-01] MEDS: PULMICORT NEB TX 0.5 MG NEB SCH ×2 (09:00→20:40)
[2020-02-01] MEDS: DUONEB 0.5 MG/3 MG (3 mL) NEB SCH ×4 (09:00→20:40)
[2020-02-01] MEDS: ZINC SULFATE PO SCH ×2 (09:21→21:53)
[2020-02-01] MEDS: PriLOSEC PO SCH (09:22)
[2020-02-01] MEDS: ASPIRIN EC 81 MG PO SCH (09:23)
[2020-02-01] MEDS: ZyrTEC TAB 10 MG PO SCH (09:23)
[2020-02-01] MEDS: LEXAPRO PO SCH (09:24)
[2020-02-01] MEDS: ARICEPT TAB 10 MG PO SCH (09:25)
[2020-02-01] MEDS: MORPHINE SULFATE INJ 2 MG INJ IVP PRN ×4 (09:35→15:35)
[2020-02-01] MEDS ORDERED: MORPHINE SULFATE INJ 2 MG INJ ONE (09:35)
[2020-02-01] MEDS ORDERED: SOLU-Medrol 125 MG VIAL ONE (09:36)
[2020-02-01] MEDS: NAMENDA TAB 10 MG PO SCH (09:42)
[2020-02-01] MEDS: HYDROCHLOROTHIAZIDE 25 MG TAB PO SCH (09:46)
[2020-02-01] MEDS: ALBUMIN HUMAN 25%- 100 ML 100 ML IV SCH (09:49)
[2020-02-01] MEDS: PLAVIX PO SCH (10:30)
[2020-02-01] MEDS: ZITHROMAX INJ 500 MG VIAL 500 MG in NS 250 ML IV 250 ML IV SCH (11:00)
[2020-02-01] MEDS: REMDESIVIR (INVESTIGATIONAL DRUG GS-5734) 100 MG in NS 250 ML IV 250 ML IV SCH (12:15)
[2020-02-01] MEDS ORDERED: LOVENOX INJ 40 MG SYR SC SCH (14:00)
[2020-02-01] MEDS: SOLU-Medrol 125 MG VIAL IVP SCH ×2 (15:00→21:52)
[2020-02-01] MEDS ORDERED: XYLOCAINE 1 % (PLAIN) ONE (16:09)
--- NOTE | 2020-02-01 16:54 | RAD ---
HISTORYCENTRAL LINE PLACEMENTSTUDYCHEST x-ray, 1 VIEWCOMPARISONX-ray from same dayFINDINGSNo central venous catheter is identified. Heart is normal in size. Bilateral lung infiltrates are similar to prior study. No pneumothorax or pleural effusion is seen.IMPRESSIONNo central venous catheter is seen.Electronically signed by: David Sloan (Feb 01, 2020 16:53:09)
--- NOTE | 2020-02-01 18:04 | PCM.PROG ---
Progress Note - Progress Note for Day of Date of Exam: 01/30/20 - Subjective Subjective: IS BEING TREATED FOR PNEUMONIA DUE TO COVID-19, HYPOXIA, AND HYPOKALEMIA. TODAY, SHE IS ALERT AND ORIENTED, LYING IN BED ON MORNING ROUNDS. SHE CONTINUES WITH COMPLAINTS OF COUGH, SHORNTESS OF BREATH, WEAKNESS, AND HEADACHE TODAY. SHE REPORTS INCREASE IN SHORTNESS OF BREATH TODAY. SHE WAS STARTED ON HEATED HIGH FLOW OXYGEN THROUGHOUT THE NIGHT. ON EXAMINATION, HEART IS REGULAR IN RATE AND RHYTHM. BILATERAL LUNGS ARE NOTED WITH SCATTERED WHEEZING THROUGHOUT. ABDOMEN IS ROUND, SOFT, AND NON-TENDER WITH NORMAL BOWEL SOUNDS NOTED IN ALL QUADRANTS. HER VITALS THIS MORNING ARE: 98.2-76-22-90%hhf-128/64. LABS WERE OBTAINED. ABNORMAL LAB VALUES INCLUDE THE FOLLOWING: HCT 34.8, POTAS SIUM 3.3, CARBON DIOXIDE 32.7, GLUCOSE 191, CALCIUM 7.9, FERRITIN 317, CRP 20.80, TOTAL PROTEIN 6.1, ALBUMIN 2.5. AN ABG WAS OBTAINED AND REVEALED: PH 7.540, PC0 44.0, P02 61.0, HC03 37.6, 02 SAT 94, BASE EXCESS 13.5, FI02 89.0. A CHEST XRAY WAS OBTAINED AND REVEALED: Bilateral pulmonary infiltrates consistent with pneumonia, essentially stable on the left and increasing in the right upper lobe. SHE IS CURRENTLY RECEIVING NORMAL SALINE AT [facility], AZITHROMYCIN 500MG IV DAILY, REMDESIVIR 100MG IV DAILY, SOLU-MEDROL 80MG IV Q8H, DUONEBS QID, PULMICORT NEBS BID, MUCOMYST IN NEB [place] LOVENOX 30MG SC BID, THE POTASSIUM AND MAGNESIUM PROTOCOLS, AND HOME MEDICATIONS WERE RESUMED. WE HAVE ORDERED A UNIT O F CONVALESCENT PLASMA AND WILL TRANSFUSE WHEN IT IS AVAILABLE. OTHERWISE, WE PLAN TO FOLLOW UP WITH AM LABS, CHEST XRAY, AND ABG AND CONTINUE TO MONITOR. - Past Medical Family Social History Past Med/Fam/Surg Hx: No changes since H&P Allergies: Allergies levofloxacin Allergy (Verified 01/27/20 21:24) - Review of Systems ROS: No change since H&P - Vital Signs and I&O's Vital Signs: Temperature 98 F Pulse Rate [Left Brachial] 63 Pulse Rate 70 Respiratory Rate 28 Blood Pressure [Left Arm] 137/65 Blood Pressure 151/68 O2 Sat by Pulse Oximetry 89 Intake and Output: Intake & Output 01/30/20 01/31/20 02/01/20 02/02/20 11:59 11:59 11:59 11:59 Intake Total 1665 / 1665 1383 / 1383 3264 / 3264 Output Total 1600 / 1600 1700 / 1700 2300 / 2300 Balance 65 / 65 -317 / -317 964 / 964 - Physical Exam Oriented: Normal Eyes: Normal Ear: Normal Nose: Normal Throat: Normal Respiratory: Generalized, Diminished, Wheezes Cardiovascular: Normal : Normal Auscultation: Bowel Sounds: Normal Tenderness: Normal Skin: Normal Musculoskeletal: Normal Psychiatric: Normal Mood Description: Calm Affect: Normal Speech Pattern: Clear, Appropriate - Laboratory and Diagnostics Result Diagrams: 02/01/20 05:40 02/01/20 05:40 Labs: Laboratory WBC 9.7 X10^3/uL (3.6-10.0) 02/01/20 05:40 RBC 4.26 X10^6/uL (3.5-5.4) 02/01/20 05:40 Hgb 12.2 g/dL (12.0-16.0) 02/01/20 05:40 Hct 36.2 % (36.0-47.0) 02/01/20 05:40 MCV 85.0 fL (80.0-100.0) 02/01/20 05:40 MCH 28.6 pg (27.0-34.0) 02/01/20 05:40 MCHC 33.7 g/dL (33.0-35.0) 02/01/20 05:40 RDW 13.6 % (11.6-16.5) 02/01/20 05:40 Plt Count 272 X10^3/uL (150.0-450.0) 02/01/20 05:40 Plt Count Comment Adequate (ADEQUATE) 02/01/20 05:40 MPV 7.4 fL (7.4-11.0) 02/01/20 05:40 Neut % (Auto) 90.6 % (42.0-75.0) H 02/01/20 05:40 Lymph % (Auto) 6.3 % (21.0-51.0) L 02/01/20 05:40 [place] % (Auto) 3.0 % (0.0-13.0) 02/01/20 05:40 Eos % (Auto) 0.0 % (0.9-2.9) L 02/01/20 05:40 Baso % (Auto) 0.1 % (0.2-1.0) L 02/01/20 05:40 Neut # (Auto) 8.8 x10^3/uL (2.2-4.8) H 02/01/20 05:40 Lymph # (Auto) 0.6 X10^3/uL (1.3-2.9) L 02/01/20 05:40 [place] # (Auto) 0.3 x10^3/uL (0.3-0.8) 02/01/20 05:40 Eos # (Auto) 0.0 x10^3/uL (0.0-0.2) 02/01/20 05:40 Baso # (Auto) 0.0 X10^3/uL (0.0-0.1) 02/01/20 05:40 Absolute Nucleated RBC 0.0 /100WBC 02/01/20 05:40 Total Counted 100 02/01/20 05:40 Neutrophils % (Manual) 92 % (39-76) H 02/01/20 05:40 Lymphocytes % (Manual) 6 % (13-43) L 02/01/20 05:40 Monocytes % (Manual) 2 % (4-9) L 02/01/20 05:40 Plt Morphology Comment Normal (NORMAL) 02/01/20 05:40 RBC Morphology Normal (NORMAL) 02/01/20 05:40 Sample Site Lr 02/01/20 06:10 ABG pH 7.500 (7.35-7.45) H 02/01/20 06:10 ABG pCO2 52.0 mmHg (35.0-45.0) H* 02/01/20 06:10 ABG pO2 60.0 mmHg (80.0-100.0) L 02/01/20 06:10 ABG HCO3 40.6 mmol/L (22-26) H* 02/01/20 06:10 ABG O2 Saturation 93.0 % (90-100) 02/01/20 06:10 ABG Base Excess 15.2 mmol/L (-2.0-2.0) H 02/01/20 06:10 Dominik Test Pos 02/01/20 06:10 A-a Gradient 545.0 mmHg 02/01/20 06:10 FiO2 94.0 02/01/20 06:10 Blood Gas Comments Wilian well ae 02/01/20 06:10 Sodium 140 mmol/L (136-145) 02/01/20 05:40 Corrected Sodium 142 mmol/L (136-145) 02/01/20 05:40 Potassium 4.1 mmol/L (3.5-5.1) 02/01/20 05:40 Chloride 102 mmol/L (98-107) 02/01/20 05:40 Carbon Dioxide 32.5 mmol/L (21-32) H 02/01/20 05:40 BUN 24 mg/dL (7-18) H 02/01/20 05:40 Creatinine 1.02 mg/dL (0.55-1.02) 02/01/20 05:40 Est GFR (MDRD) Af Amer > 60 (>60) 02/01/20 05:40 Est GFR (MDRD) Non-Af 57 (>60) L 02/01/20 05:40 Glucose 187 mg/dL (65-99) H 02/01/20 05:40 Calcium 8.0 mg/dL (8.5-10.1) L 02/01/20 05:40 Corrected Calcium 9.0 mg/dL (8.5-10.1) 02/01/20 05:40 Magnesium 2.5 mg/dL (1.7-2.9) 01/29/20 04:05 Ferritin 311 ng/mL (8-252) H 02/01/20 05:40 Total Bilirubin 0.50 mg/dL (0.2-1.0) 02/01/20 05:40 AST 39 Units/L (15-37) H 02/01/20 05:40 ALT 27 Units/L (12-78) 02/01/20 05:40 Alkaline Phosphatase 67 Units/L (46-116) 02/01/20 05:40 Troponin I < 0.02 ng/mL (0-1.5) 01/28/20 01:35 C-Reactive Protein 7.00 mg/L (0-3.0) H 02/01/20 05:40 Total Protein 5.9 g/dL (6.4-8.2) L 02/01/20 05:40 Albumin 2.8 g/dL (3.4-5.0) L 02/01/20 05:40 Globulin 3.1 g/dL (2.5-4.5) 02/01/20 05:40 Albumin/Globulin Ratio 0.9 Ratio (1.1-2.1) L 02/01/20 05:40 Specimen Type Catherized urine 01/29/20 04:50 Urine Color Yellow (YELLOW) 01/29/20 04:50 Urine Appearance Clear (CLEAR) 01/29/20 04:50 Urine pH 6.0 (5.0 - 8.0) 01/29/20 04:50 Ur Specific [place] 1.020 (1.000-1.030) 01/29/20 04:50 Urine Protein 1+ (NEGATIVE) 01/29/20 04:50 Urine Glucose (UA) 1+ (NEGATIVE) 01/29/20 04:50 Urine Ketones 1+ (NEGATIVE) 01/29/20 04:50 Urine Occult Blood Negative (NEGATIVE) 01/29/20 04:50 Urine Nitrite Negative (NEGATIVE) 01/29/20 04:50 Urine Bilirubin Negative (NEGATIVE) 01/29/20 04:50 Urine Urobilinogen Normal (NORMAL) 01/29/20 04:50 Ur Leukocyte Esterase Negative (NEGATIVE) 01/29/20 04:50 Urine RBC None seen /HPF (0-3) 01/29/20 04:50 Urine WBC None seen /HPF (0-5) 01/29/20 04:50 Ur Squamous Epith Cells Rare /HPF (NEGATIVE) 01/29/20 04:50 Urine Bacteria Negative /HPF (NEGATIVE) 01/29/20 04:50 Ur Culture Indicated? No/not indicated 01/29/20 04:50 Blood Type A NEGATIVE 01/28/20 01:35 Antibody Screen Negative 01/28/20 01:35 - Plan (1) Pneumonia due to 2019 novel coronavirus Status: Acute Plan: NORMAL SALINE AT [facility], AZITHROMYCIN 500MG IV DAILY, REMDESIVIR 100MG IV DAILY, SOLU-MEDROL 80MG IV Q8H, DUONEBS QID, PULMICORT NEBS BID, MUCOMYST IN NEB [place], LOVENOX 30MG SC BID, THE POTASSIUM AND MAGNESIUM PROTOCOLS, AND HOME MEDICATIONS WERE RESUMED. WE WILL ORDER CONVALESCENT PLASMA TO BE TRANSFUSED WHEN IT IS AVAILABLE. (2) Hypoxia Status: Acute (3) Acute hypokalemia Status: Acute (4) Lobar pneumonia Status: Acute
[2020-02-01] MEDS: COLACE CAP 100 MG PO SCH (21:52)
[2020-02-01] MEDS: TUSSIONEX PENNKINETIC SUSP PO PRN (21:53)
[2020-02-01] MEDS: PROCALAMINE 3 % 1,000 ML IV SCH (21:54)
[2020-02-02 04:48] LABS: ABG ALLEN TEST POS; FRACTIONATED INSPIRED OXYGEN 100
[2020-02-02 04:58] LABS: BASOPHILS % (AUTO) 0.1 % (0.2-1.0); HEMATOCRIT 31.5 % (36.0-47.0); HEMOGLOBIN 10.7 g/dL (12.0-16.0); LYMPHOCYTES # (AUTO) 0.5 X10^3/uL (1.3-2.9); LYMPHOCYTES % (AUTO) 4.2 % (21.0-51.0); MEAN CORPUSCULAR HEMOGLOBIN 28.8 pg (27.0-34.0); MEAN CORPUSCULAR VOLUME 84.9 fL (80.0-100.0); MEAN PLATELET VOLUME 7.7 fL (7.4-11.0); MONOCYTES # (AUTO) 0.3 x10^3/uL (0.3-0.8); NEUTROPHILS # (AUTO) 10.2 x10^3/uL (2.2-4.8); NEUTROPHILS % (AUTO) 92.7 % (42.0-75.0); PLATELET COUNT 280 X10^3/uL (150.0-450.0); RED BLOOD COUNT 3.71 X10^6/uL (3.5-5.4); RED CELL DISTRIBUTION WIDTH 13.5 % (11.6-16.5)
[2020-02-02 05:11] LABS: ALANINE AMINOTRANSFERASE 39 Units/L (12-78); ALBUMIN 2.8 g/dL (3.4-5.0); ALKALINE PHOSPHATASE 88 Units/L (46-116); ASPARTATE AMINO TRANSFERASE 53 Units/L (15-37); BLOOD UREA NITROGEN 25 mg/dL (7-18); CALCIUM 7.7 mg/dL (8.5-10.1); CARBON DIOXIDE 37.2 mmol/L (21-32); CHLORIDE 100 mmol/L (98-107); COR CA(FOR HYPOALB) 8.7 mg/dL (8.5-10.1); COR NA(FOR HYPERGLY) 141 mmol/L (136-145); CREATININE 1.02 mg/dL (0.55-1.02); SODIUM 139 mmol/L (136-145); TOTAL PROTEIN 5.7 g/dL (6.4-8.2); eGFR NON BLACK RACES 57 (>60)
[2020-02-02] MEDS: SOLU-Medrol 125 MG VIAL IVP SCH ×3 (05:26→21:16)
[2020-02-02] MEDS: XANAX PO SCH ×3 (05:58→21:17)
[2020-02-02 06:05] LABS: ANISOCYTOSIS SLIGHT; BAND NEUTROPHILS % 0 % (0-10); PLATELET MORPHOLOGY COMMENT NORMAL (NORMAL)
[2020-02-02] MEDS: K-DUR TAB 20 MEQ PO PRN (07:04)
--- NOTE | 2020-02-02 08:42 | PCM.PROG ---
Progress Note - Progress Note for Day of Date of Exam: 01/31/20 - Subjective Subjective: IS BEING TREATED FOR PNEUMONIA DUE TO COVID-19, HYPOXIA, AND HYPOKALEMIA. TODAY, SHE IS ALERT AND ORIENTED, LYING IN BED ON MORNING ROUNDS. SHE CONTINUES WITH COMPLAINTS OF COUGH, SHORNTESS OF BREATH, WEAKNESS, AND HEADACHE TODAY. SHE IS CURRENTLY UTILIZING HEATED HIGH FLOW OXYGEN. SHE DENIES SIGNIFICANT IMPROVEMENT SINCE YESTERDAY. OXYGEN SATURATIONS HAVE OCCATIONALLY FALLEN TO THE 80s ON WHILE ON HEATED HIGH FLOW OXYGEN. ON EXAMINATION, HEART IS REGULAR IN RATE AND RHYTHM. BILATERAL LUNGS ARE NOTED WITH SCATTERED WHEEZING THROUGHOUT. ABDOMEN IS ROUND, SOFT, AND NON-TENDER WITH NORMAL BOWEL SOUNDS NOTED IN ALL QUADRANTS. HER VITALS THIS MORNING ARE: 98.2-70-20-94%-134/68. LABS WERE OBTAINED. ABNORMAL LAB VALUES INCLUDE THE FOLLOWING: HCT 34.6, POTASSIUM 3.3, GLUCOSE 200, CALCIUM 8.0, FERRITIN 346, CRP 13.70, TOTAL PROTEIN 5.9, ALBUMIN 2.5. AN ABG WAS OBTAINED AND REVEALED: PH 7.530, PC02 46.0, P02 71.0, HC03 38.4, 02 SAT 96.0, BASE EXCESS 14.0, FIO2 88.0. A CHEST XRAY WAS OBTAINED AND REVEALED: STABLE PNEUMONIA. SHE HAS RECEIVED ONE UNIT OF CONVALESCENT PLASMA SINCE ADMISSION. SHE IS CURRENTLY RECEIVING NORMAL SALINE AT [facility], AZITHROMYCIN 500MG IV DAILY, REMDESIVIR 100MG IV DAILY, SOLU- MEDROL 80MG IV Q8H, DUONEBS QID, PULMICORT NEBS BID, MUCOMYST IN NEB [place] LOVENOX 30MG SC BID, THE POTASSIUM AND MAGNESIUM PROTOCOLS, AND HOME MEDICATIONS WERE RESUMED. TODAY, WE WILL ADD PROCALAMINE AT 40 ML/HR AND ALBUMIN 25% IV DAILY. OTHERWISE, WE PLAN TO FOLLOW UP WITH AM LABS, CHEST XRAY, AND ABG AND CONTINUE TO MONITOR. - Past Medical Family Social History Past Med/Fam/Surg Hx: No changes since H&P Allergies: Allergies levofloxacin Allergy (Verified 01/27/20 21:24) - Review of Systems ROS: No change since H&P - Vital Signs and I&O's Vital Signs: Temperature 98.3 F Pulse Rate [Left Brachial] 60 Pulse Rate 57 Respiratory Rate 28 Blood Pressure [Left Arm] 126/64 Blood Pressure 151/68 O2 Sat by Pulse Oximetry 89 Intake and Output: Intake & Output 01/30/20 01/31/20 02/01/20 02/02/20 11:59 11:59 11:59 11:59 Intake Total 1665 / 1665 1383 / 1383 3264 / 3264 2420 / 2420 Output Total 1600 / 1600 1700 / 1700 2300 / 2300 2100 / 2100 Balance 65 / 65 -317 / -317 964 / 964 320 / 320 - Physical Exam Oriented: Normal Eyes: Normal Ear: Normal Nose: Normal Throat: Normal Respiratory: Generalized, Diminished, Wheezes Cardiovascular: Normal : Normal Auscultation: Bowel Sounds: Normal Tenderness: Normal Skin: Normal Musculoskeletal: Normal Psychiatric: Normal Mood Description: Calm Affect: Normal Speech Pattern: Clear, Appropriate - Laboratory and Diagnostics Result Diagrams: 02/02/20 03:50 02/02/20 03:50 Labs: Laboratory WBC 11.0 X10^3/uL (3.6-10.0) H 02/02/20 03:50 RBC 3.71 X10^6/uL (3.5-5.4) 02/02/20 03:50 Hgb 10.7 g/dL (12.0-16.0) L 02/02/20 03:50 Hct 31.5 % (36.0-47.0) L 02/02/20 03:50 MCV 84.9 fL (80.0-100.0) 02/02/20 03:50 MCH 28.8 pg (27.0-34.0) 02/02/20 03:50 MCHC 34.0 g/dL (33.0-35.0) 02/02/20 03:50 RDW 13.5 % (11.6-16.5) 02/02/20 03:50 Plt Count 280 X10^3/uL (150.0-450.0) 02/02/20 03:50 Plt Count Comment Adequate (ADEQUATE) 02/02/20 03:50 MPV 7.7 fL (7.4-11.0) 02/02/20 03:50 Neut % (Auto) 92.7 % (42.0-75.0) H 02/02/20 03:50 Lymph % (Auto) 4.2 % (21.0-51.0) L 02/02/20 03:50 [place] % (Auto) 3.0 % (0.0-13.0) 02/02/20 03:50 Eos % (Auto) 0.0 % (0.9-2.9) L 02/02/20 03:50 Baso % (Auto) 0.1 % (0.2-1.0) L 02/02/20 03:50 Neut # (Auto) 10.2 x10^3/uL (2.2-4.8) H 02/02/20 03:50 Lymph # (Auto) 0.5 X10^3/uL (1.3-2.9) L 02/02/20 03:50 [place] # (Auto) 0.3 x10^3/uL (0.3-0.8) 02/02/20 03:50 Eos # (Auto) 0.0 x10^3/uL (0.0-0.2) 02/02/20 03:50 Baso # (Auto) 0.0 X10^3/uL (0.0-0.1) 02/02/20 03:50 Absolute Nucleated RBC 0.1 /100WBC 02/02/20 03:50 Total Counted 100 02/02/20 03:50 Neutrophils % (Manual) 96 % (39-76) H 02/02/20 03:50 Band Neutrophils % 0 % (0-10) 02/02/20 03:50 Lymphocytes % (Manual) 2 % (13-43) L 02/02/20 03:50 Monocytes % (Manual) 2 % (4-9) L 02/02/20 03:50 Plt Morphology Comment Normal (NORMAL) 02/02/20 03:50 RBC Morphology Abnormal (NORMAL) A 02/02/20 03:50 Anisocytosis Slight A 02/02/20 03:50 PT 13.5 SECONDS (11.8-14.3) 02/02/20 01:20 INR Target Range - 02/02/20 01:20 INR 1.06 (0.8-1.3) 02/02/20 01:20 Sample Site Lr 02/02/20 04:42 ABG pH 7.470 (7.35-7.45) H 02/02/20 04:42 ABG pCO2 55.0 mmHg (35.0-45.0) H* 02/02/20 04:42 ABG pO2 61.0 mmHg (80.0-100.0) L 02/02/20 04:42 ABG HCO3 40.0 mmol/L (22-26) H* 02/02/20 04:42 ABG O2 Saturation 93.0 % (90-100) 02/02/20 04:42 ABG Base Excess 14.0 mmol/L (-2.0-2.0) H 02/02/20 04:42 Dominik Test Pos 02/02/20 04:42 A-a Gradient 583.0 mmHg 02/02/20 04:42 FiO2 100 02/02/20 04:42 Blood Gas Comments Wilian well ae 02/02/20 04:42 Sodium 139 mmol/L (136-145) 02/02/20 03:50 Corrected Sodium 141 mmol/L (136-145) 02/02/20 03:50 Potassium 3.7 mmol/L (3.5-5.1) 02/02/20 03:50 Chloride 100 mmol/L (98-107) 02/02/20 03:50 Carbon Dioxide 37.2 mmol/L (21-32) H 02/02/20 03:50 BUN 25 mg/dL (7-18) H 02/02/20 03:50 Creatinine 1.02 mg/dL (0.55-1.02) 02/02/20 03:50 Est GFR (MDRD) Af Amer > 60 (>60) 02/02/20 03:50 Est GFR (MDRD) Non-Af 57 (>60) L 02/02/20 03:50 Glucose 202 mg/dL (65-99) H 02/02/20 03:50 Calcium 7.7 mg/dL (8.5-10.1) L 02/02/20 03:50 Corrected Calcium 8.7 mg/dL (8.5-10.1) 02/02/20 03:50 Magnesium 2.3 mg/dL (1.7-2.9) 02/02/20 03:50 Ferritin 289 ng/mL (8-252) H 02/02/20 03:50 Total Bilirubin 0.60 mg/dL (0.2-1.0) 02/02/20 03:50 AST 53 Units/L (15-37) H 02/02/20 03:50 ALT 39 Units/L (12-78) 02/02/20 03:50 Alkaline Phosphatase 88 Units/L (46-116) 02/02/20 03:50 Troponin I < 0.02 ng/mL (0-1.5) 01/28/20 01:35 C-Reactive Protein 8.10 mg/L (0-3.0) H 02/02/20 03:50 Total Protein 5.7 g/dL (6.4-8.2) L 02/02/20 03:50 Albumin 2.8 g/dL (3.4-5.0) L 02/02/20 03:50 Globulin 2.9 g/dL (2.5-4.5) 02/02/20 03:50 Albumin/Globulin Ratio 1.0 Ratio (1.1-2.1) L 02/02/20 03:50 Specimen Type Catherized urine 01/29/20 04:50 Urine Color Yellow (YELLOW) 01/29/20 04:50 Urine Appearance Clear (CLEAR) 01/29/20 04:50 Urine pH 6.0 (5.0 - 8.0) 01/29/20 04:50 Ur Specific [place] 1.020 (1.000-1.030) 01/29/20 04:50 Urine Protein 1+ (NEGATIVE) 01/29/20 04:50 Urine Glucose (UA) 1+ (NEGATIVE) 01/29/20 04:50 Urine Ketones 1+ (NEGATIVE) 01/29/20 04:50 Urine Occult Blood Negative (NEGATIVE) 01/29/20 04:50 Urine Nitrite Negative (NEGATIVE) 01/29/20 04:50 Urine Bilirubin Negative (NEGATIVE) 01/29/20 04:50 Urine Urobilinogen Normal (NORMAL) 01/29/20 04:50 Ur Leukocyte Esterase Negative (NEGATIVE) 01/29/20 04:50 Urine RBC None seen /HPF (0-3) 01/29/20 04:50 Urine WBC None seen /HPF (0-5) 01/29/20 04:50 Ur Squamous Epith Cells Rare /HPF (NEGATIVE) 01/29/20 04:50 Urine Bacteria Negative /HPF (NEGATIVE) 01/29/20 04:50 Ur Culture Indicated? No/not indicated 01/29/20 04:50 Blood Type A NEGATIVE 01/28/20 01:35 Antibody Screen Negative 01/28/20 01:35 - Plan (1) Pneumonia due to 2019 novel coronavirus Status: Acute Plan: NORMAL SALINE AT [facility], ALBUMIN 25% IV DAILY, PROCALAMINE AT 40 ML/HR, AZITHROMYCIN 500MG IV DAILY, REMDESIVIR 100MG IV DAILY, SOLU-MEDROL 80MG IV Q8H, DUONEBS QID, PULMICORT NEBS BID, MUCOMYST IN NEB [place], LOVENOX 30MG SC BID, THE P OTASSIUM AND MAGNESIUM PROTOCOLS, AND HOME MEDICATIONS WERE RESUMED. WE WILL ORDER CONVALESCENT PLASMA TO BE TRANSFUSED WHEN IT IS AVAILABLE. (2) Hypoxia Status: Acute (3) Acute hypokalemia Status: Acute (4) Lobar pneumonia Status: Acute
[2020-02-02] MEDS: PULMICORT NEB TX 0.5 MG NEB SCH ×2 (08:45→20:20)
[2020-02-02] MEDS ORDERED: LEXAPRO ONE (08:45)
[2020-02-02] MEDS: DUONEB 0.5 MG/3 MG (3 mL) NEB SCH ×4 (08:45→20:20)
[2020-02-02] MEDS ORDERED: LOVENOX INJ 30 MG SYR SC SCH (09:00)
[2020-02-02] MEDS: ALBUMIN HUMAN 25%- 100 ML 100 ML IV SCH (09:20)
[2020-02-02] MEDS: ARICEPT TAB 10 MG PO SCH (09:22)
[2020-02-02] MEDS: PLAVIX PO SCH (09:23)
[2020-02-02] MEDS: ASPIRIN EC 81 MG PO SCH (09:24)
[2020-02-02] MEDS: ZyrTEC TAB 10 MG PO SCH (09:24)
[2020-02-02] MEDS: HYDROCHLOROTHIAZIDE 25 MG TAB PO SCH (09:28)
[2020-02-02] MEDS: ZINC SULFATE PO SCH ×2 (09:28→21:15)
[2020-02-02] MEDS: REMDESIVIR (INVESTIGATIONAL DRUG GS-5734) 100 MG in NS 250 ML IV 250 ML IV SCH (09:29)
[2020-02-02] MEDS: LEXAPRO PO SCH (09:29)
[2020-02-02] MEDS: NAMENDA TAB 10 MG PO SCH (09:29)
[2020-02-02] MEDS: PriLOSEC PO SCH (09:30)
[2020-02-02] MEDS: MORPHINE SULFATE INJ 2 MG INJ IVP PRN (10:05)
[2020-02-02] MEDS: ZITHROMAX INJ 500 MG VIAL 500 MG in NS 250 ML IV 250 ML IV SCH (10:55)
[2020-02-02] MEDS: NS 1000 ML 1,000 ML IV SCH (10:56)
--- NOTE | 2020-02-02 11:45 | PCM.PROG ---
Progress Note - Progress Note for Day of Date of Exam: 02/01/20 - Subjective Subjective: IS BEING TREATED FOR PNEUMONIA DUE TO COVID-19, HYPOXIA, AND HYPOKALEMIA. TODAY, SHE IS ALERT AND ORIENTED, LYING IN BED ON MORNING ROUNDS. SHE CONTINUES WITH COMPLAINTS OF COUGH, SHORNTESS OF BREATH, WEAKNESS, AND HEADACHE TODAY. SHE IS CURRENTLY UTILIZING HEATED HIGH FLOW OXYGEN. SHE DENIES SIGNIFICANT IMPROVEMENT SINCE YESTERDAY. OXYGEN SATURATIONS HAVE OCCATIONALLY FALLEN TO THE 80s ON WHILE ON HEATED HIGH FLOW OXYGEN. ON EXAMINATION, HEART IS REGULAR IN RATE AND RHYTHM. BILATERAL LUNGS ARE NOTED WITH SCATTERED WHEEZING THROUGHOUT. ABDOMEN IS ROUND, SOFT, AND NON-TENDER WITH NORMAL BOWEL SOUNDS NOTED IN ALL QUADRANTS. HER VITALS THIS MORNING ARE: 98.0-57-20-88%HEATED HIGH FLOW-149/70. LABS WERE OBTAINED. ABNORMAL LAB VALUES INCLUDE THE FOLLOWING: CARBON DIOXIDE 32.5, BUN 24, GLUCOSE 187, CALCIUM 8.0, FERRITIN 311, AST 39, CRP 7, TOTAL PROTEIN 5.9, ALBUMIN 2.8 AN ABG WAS OBTAINED AND REVEALED: PH 7.500, PC02 52.0, P02 60, HC03 40.6, 02 SAT 93, BASE EXCESS 15.2, FI02 94. A CHEST XRAY WAS OBTAINED AND REVEALED: Mild improved appearance of airspace disease. SHE HAS RECEIVED ONE UNIT OF CONVALESCENT PLASMA SINCE ADMISSION. SHE IS CURRENTLY RECEIVING NORMAL SALINE AT KVO, PROCALAMINE AT 40 ML/HR, ALBUMIN 25% IV DAILY, AZITHROMYCIN 500MG IV DAILY, REMDESIVIR 100MG IV DAILY, SOLU-MEDROL 80MG IV Q8H, DUONEBS QID, PULMICORT NEBS BID, MUCOMYST IN NEB [place] LOVENOX 30MG SC BID, THE POTASSIUM AND MAGNESIUM PROTOCOLS, AND HOME MEDICATIONS WERE RESUMED. WE WILL START HER ON THE BIPAP TODAY AND INCREASE SOLU-MEDROL TO 125MG TID. WE WILL TRANSFUSE ANOTHER UNIT OF CONVALESCENT PLASMA WHEN IT IS AVAILABLE. OTHERWISE, WE PLAN TO FOLLOW UP WITH AM LABS, CHEST XRAY, AND ABG AND CONTINUE TO MONITOR. - Past Medical Family Social History Past Med/Fam/Surg Hx: No changes since H&P Allergies: Allergies levofloxacin Allergy (Verified 01/27/20 21:24) - Review of Systems ROS: No change since H&P - Vital Signs and I&O's Vital Signs: Temperature 98.0 F Pulse Rate [Left Brachial] 73 Pulse Rate 57 Respiratory Rate 32 Blood Pressure [Left Arm] 121/61 Blood Pressure 151/68 O2 Sat by Pulse Oximetry 91 Intake and Output: Intake & Output 01/30/20 01/31/20 02/01/20 02/02/20 11:59 11:59 11:59 11:59 Intake Total 1665 / 1665 1383 / 1383 3264 / 3264 2420 / 2420 Output Total 1600 / 1600 1700 / 1700 2300 / 2300 2100 / 2100 Balance 65 / 65 -317 / -317 964 / 964 320 / 320 - Physical Exam Oriented: Normal Eyes: Normal Ear: Normal Nose: Normal Throat: Normal Respiratory: Generalized, Diminished, Wheezes Cardiovascular: Normal : Normal Auscultation: Bowel Sounds: Normal Palpation: Normal Tenderness: Normal Skin: Normal Musculoskeletal: Normal Psychiatric: Normal Mood Description: Calm Affect: Normal Speech Pattern: Clear, Appropriate - Laboratory and Diagnostics Result Diagrams: 02/02/20 03:50 02/02/20 03:50 Labs: Laboratory WBC 11.0 X10^3/uL (3.6-10.0) H 02/02/20 03:50 RBC 3.71 X10^6/uL (3.5-5.4) 02/02/20 03:50 Hgb 10.7 g/dL (12.0-16.0) L 02/02/20 03:50 Hct 31.5 % (36.0-47.0) L 02/02/20 03:50 MCV 84.9 fL (80.0-100.0) 02/02/20 03:50 MCH 28.8 pg (27.0-34.0) 02/02/20 03:50 MCHC 34.0 g/dL (33.0-35.0) 02/02/20 03:50 RDW 13.5 % (11.6-16.5) 02/02/20 03:50 Plt Count 280 X10^3/uL (150.0-450.0) 02/02/20 03:50 Plt Count Comment Adequate (ADEQUATE) 02/02/20 03:50 MPV 7.7 fL (7.4-11.0) 02/02/20 03:50 Neut % (Auto) 92.7 % (42.0-75.0) H 02/02/20 03:50 Lymph % (Auto) 4.2 % (21.0-51.0) L 02/02/20 03:50 [place] % (Auto) 3.0 % (0.0-13.0) 02/02/20 03:50 Eos % (Auto) 0.0 % (0.9-2.9) L 02/02/20 03:50 Baso % (Auto) 0.1 % (0.2-1.0) L 02/02/20 03:50 Neut # (Auto) 10.2 x10^3/uL (2.2-4.8) H 02/02/20 03:50 Lymph # (Auto) 0.5 X10^3/uL (1.3-2.9) L 02/02/20 03:50 [place] # (Auto) 0.3 x10^3/uL (0.3-0.8) 02/02/20 03:50 Eos # (Auto) 0.0 x10^3/uL (0.0-0.2) 02/02/20 03:50 Baso # (Auto) 0.0 X10^3/uL (0.0-0.1) 02/02/20 03:50 Absolute Nucleated RBC 0.1 /100WBC 02/02/20 03:50 Total Counted 100 02/02/20 03:50 Neutrophils % (Manual) 96 % (39-76) H 02/02/20 03:50 Band Neutrophils % 0 % (0-10) 02/02/20 03:50 Lymphocytes % (Manual) 2 % (13-43) L 02/02/20 03:50 Monocytes % (Manual) 2 % (4-9) L 02/02/20 03:50 Plt Morphology Comment Normal (NORMAL) 02/02/20 03:50 RBC Morphology Abnormal (NORMAL) A 02/02/20 03:50 Anisocytosis Slight A 02/02/20 03:50 PT 13.5 SECONDS (11.8-14.3) 02/02/20 01:20 INR Target Range - 02/02/20 01:20 INR 1.06 (0.8-1.3) 02/02/20 01:20 Sample Site Lr 02/02/20 04:42 ABG pH 7.470 (7.35-7.45) H 02/02/20 04:42 ABG pCO2 55.0 mmHg (35.0-45.0) H* 02/02/20 04:42 ABG pO2 61.0 mmHg (80.0-100.0) L 02/02/20 04:42 ABG HCO3 40.0 mmol/L (22-26) H* 02/02/20 04:42 ABG O2 Saturation 93.0 % (90-100) 02/02/20 04:42 ABG Base Excess 14.0 mmol/L (-2.0-2.0) H 02/02/20 04:42 Dominik Test Pos 02/02/20 04:42 A-a Gradient 583.0 mmHg 02/02/20 04:42 FiO2 100 02/02/20 04:42 Blood Gas Comments Wilian well ae 02/02/20 04:42 Sodium 139 mmol/L (136-145) 02/02/20 03:50 Corrected Sodium 141 mmol/L (136-145) 02/02/20 03:50 Potassium 3.7 mmol/L (3.5-5.1) 02/02/20 03:50 Chloride 100 mmol/L (98-107) 02/02/20 03:50 Carbon Dioxide 37.2 mmol/L (21-32) H 02/02/20 03:50 BUN 25 mg/dL (7-18) H 02/02/20 03:50 Creatinine 1.02 mg/dL (0.55-1.02) 02/02/20 03:50 Est GFR (MDRD) Af Amer > 60 (>60) 02/02/20 03:50 Est GFR (MDRD) Non-Af 57 (>60) L 02/02/20 03:50 Glucose 202 mg/dL (65-99) H 02/02/20 03:50 Calcium 7.7 mg/dL (8.5-10.1) L 02/02/20 03:50 Corrected Calcium 8.7 mg/dL (8.5-10.1) 02/02/20 03:50 Magnesium 2.3 mg/dL (1.7-2.9) 02/02/20 03:50 Ferritin 289 ng/mL (8-252) H 02/02/20 03:50 Total Bilirubin 0.60 mg/dL (0.2-1.0) 02/02/20 03:50 AST 53 Units/L (15-37) H 02/02/20 03:50 ALT 39 Units/L (12-78) 02/02/20 03:50 Alkaline Phosphatase 88 Units/L (46-116) 02/02/20 03:50 Troponin I < 0.02 ng/mL (0-1.5) 01/28/20 01:35 C-Reactive Protein 8.10 mg/L (0-3.0) H 02/02/20 03:50 Total Protein 5.7 g/dL (6.4-8.2) L 02/02/20 03:50 Albumin 2.8 g/dL (3.4-5.0) L 02/02/20 03:50 Globulin 2.9 g/dL (2.5-4.5) 02/02/20 03:50 Albumin/Globulin Ratio 1.0 Ratio (1.1-2.1) L 02/02/20 03:50 Specimen Type Catherized urine 01/29/20 04:50 Urine Color Yellow (YELLOW) 01/29/20 04:50 Urine Appearance Clear (CLEAR) 01/29/20 04:50 Urine pH 6.0 (5.0 - 8.0) 01/29/20 04:50 Ur Specific Ama 1.020 (1.000-1.030) 01/29/20 04:50 Urine Protein 1+ (NEGATIVE) 01/29/20 04:50 Urine Glucose (UA) 1+ (NEGATIVE) 01/29/20 04:50 Urine Ketones 1+ (NEGATIVE) 01/29/20 04:50 Urine Occult Blood Negative (NEGATIVE) 01/29/20 04:50 Urine Nitrite Negative (NEGATIVE) 01/29/20 04:50 Urine Bilirubin Negative (NEGATIVE) 01/29/20 04:50 Urine Urobilinogen Normal (NORMAL) 01/29/20 04:50 Ur Leukocyte Esterase Negative (NEGATIVE) 01/29/20 04:50 Urine RBC None seen /HPF (0-3) 01/29/20 04:50 Urine WBC None seen /HPF (0-5) 01/29/20 04:50 Ur Squamous Epith Cells Rare /HPF (NEGATIVE) 01/29/20 04:50 Urine Bacteria Negative /HPF (NEGATIVE) 01/29/20 04:50 Ur Culture Indicated? No/not indicated 01/29/20 04:50 Blood Type A NEGATIVE 01/28/20 01:35 Antibody Screen Negative 01/28/20 01:35 - Plan (1) Pneumonia due to 2019 novel coronavirus Status: Acute Plan: NORMAL SALINE AT KVO, ALBUMIN 25% IV DAILY, PROCALAMINE AT 40 ML/HR, AZITHROMYCIN 500MG IV DAILY, REMDESIVIR 100MG IV DAILY, SOLU-MEDROL 125MG IV Q8H, DUONEBS QID, PULMICORT NEBS BID, MUCOMYST IN NEB [place], LOVENOX 30MG SC BID, THE POTASSIUM AND MAGNESIUM PROTOCOLS, AND HOME MEDICATIONS WERE RESUMED. WE WILL ORDER CONVALESCENT PLASMA TO BE TRANSFUSED WHEN IT IS AVAILABLE. (2) Hypoxia Status: Acute (3) Acute hypokalemia Status: Acute (4) Lobar pneumonia Status: Acute
[2020-02-02] MEDS: ROBITUSSIN DM PO PRN ×2 (13:48→21:17)
[2020-02-02] MEDS: TUSSIONEX PENNKINETIC SUSP PO PRN (13:48)
[2020-02-02] MEDS: ZOFRAN INJ 4 MG VIAL IVP PRN (13:49)
--- NOTE | 2020-02-02 20:41 | PCM.PROG ---
Progress Note - Progress Note for Day of Date of Exam: 02/02/20 - Subjective Subjective: IS BEING TREATED FOR PNEUMONIA DUE TO COVID-19, HYPOXIA, AND HYPOKALEMIA. TODAY, SHE IS ALERT AND ORIENTED, LYING IN BED ON MORNING ROUNDS. SHE CONTINUES WITH COMPLAINTS OF COUGH, SHORNTESS OF BREATH, WEAKNESS, AND HEADACHE TODAY. SHE REPORTS SLIGHT IMPROVEMENT IN SYMPTOMS TODAY. SHE IS CURRENTLY UTILIZING THE NON-REBREATHER. SHE HAS USED THE BIPAP SOME THROUGHOUT THE NIGHT. OXYGEN SATURATIONS HAVE OCCATIONALLY FALLEN TO THE 80s ON WHILE ON THE NON-REBREATHER. ON EXAMINATION, HEART IS REGULAR IN RATE AND RHYTHM. BILATERAL LUNGS ARE NOTED WITH SCATTERED WHEEZING THROUGHOUT. ABDOMEN IS ROUND, SOFT, AND NON-TENDER WITH NORMAL BOWEL SOUNDS NOTED IN ALL QUADRANTS. HER VITALS THIS MORNING ARE: 98.0-55-28-94%[id number]/59. LABS WERE OBTAINED. ABNORMAL LAB VALUES INCLUDE THE FOLLOWING: WBC 11.0, HGB 10.7, HCT 31.5, CARBON DIOXIDE 37.2, BUN 25, GLUCOSE 202, CALCIUM 7.7, FERRITIN 289, AST 53, CRP 8.10, TOTAL PROTEIN 5.7, ALBUMIN 2.8. AN ABG WAS OBTAINED AND REVEALED: PH 7.470, PC02 55, P02 61, HC03 40.0, 02 SAT 93, BASE EXCESS 14, FI02 100. SHE HAS RECEIVED ONE UNIT OF CONVALESCENT PLASMA SINCE ADMISSION. SHE IS CURRENTLY RECEIVING NORMAL SALINE AT KVO, PROCALAMINE AT 40 ML/HR, ALBUMIN 25% IV DAILY, AZITHROMYCIN 500MG IV DAILY, REMDESIVIR 100MG IV DAILY, SOLU-MEDROL 125MG IV Q8H, DUONEBS QID, PULMICORT NEBS BID, MUCOMYST IN NEB [place] LOVENOX 30MG SC BID, THE POTASSIUM AND MAGNESIUM PROTOCOLS, AND HOME MEDICATIONS WERE RESUMED. WE WILL TRANSFUSE ANOTHER UNIT OF CONVALESCENT PLASMA WHEN IT IS AVAILABLE. OTHERWISE, WE PLAN TO FOLLOW UP WITH AM LABS, CHEST XRAY, AND ABG AND CONTINUE TO MONITOR. - Past Medical Family Social History Past Med/Fam/Surg Hx: No changes since H&P Allergies: Allergies levofloxacin Allergy (Verified 01/27/20 21:24) - Review of Systems ROS: No change since H&P - Vital Signs and I&O's Vital Signs: Temperature 99.2 F Pulse Rate [Left Brachial] 84 Pulse Rate 75 Respiratory Rate 28 Blood Pressure [Left Arm] 132/61 Blood Pressure 151/68 O2 Sat by Pulse Oximetry 88 Intake and Output: Intake & Output 01/31/20 02/01/20 02/02/20 02/03/20 11:59 11:59 11:59 11:59 Intake Total 1383 / 1383 3264 / 3264 2420 / 2420 1321 / 1321 Output Total 1700 / 1700 2300 / 2300 2100 / 2100 500 / 500 Balance -317 / -317 964 / 964 320 / 320 821 / 821 - Physical Exam Oriented: Normal Eyes: Normal Ear: Normal Nose: Normal Throat: Normal Respiratory: Generalized, Diminished, Wheezes Cardiovascular: Normal : Normal Auscultation: Bowel Sounds: Normal Palpation: Normal Tenderness: Normal Skin: Normal Musculoskeletal: Normal Psychiatric: Normal Mood Description: Calm Affect: Normal Speech Pattern: Clear, Appropriate - Laboratory and Diagnostics Result Diagrams: 02/02/20 03:50 02/02/20 03:50 Labs: Laboratory WBC 11.0 X10^3/uL (3.6-10.0) H 02/02/20 03:50 RBC 3.71 X10^6/uL (3.5-5.4) 02/02/20 03:50 Hgb 10.7 g/dL (12.0-16.0) L 02/02/20 03:50 Hct 31.5 % (36.0-47.0) L 02/02/20 03:50 MCV 84.9 fL (80.0-100.0) 02/02/20 03:50 MCH 28.8 pg (27.0-34.0) 02/02/20 03:50 MCHC 34.0 g/dL (33.0-35.0) 02/02/20 03:50 RDW 13.5 % (11.6-16.5) 02/02/20 03:50 Plt Count 280 X10^3/uL (150.0-450.0) 02/02/20 03:50 Plt Count Comment Adequate (ADEQUATE) 02/02/20 03:50 MPV 7.7 fL (7.4-11.0) 02/02/20 03:50 Neut % (Auto) 92.7 % (42.0-75.0) H 02/02/20 03:50 Lymph % (Auto) 4.2 % (21.0-51.0) L 02/02/20 03:50 [place] % (Auto) 3.0 % (0.0-13.0) 02/02/20 03:50 Eos % (Auto) 0.0 % (0.9-2.9) L 02/02/20 03:50 Baso % (Auto) 0.1 % (0.2-1.0) L 02/02/20 03:50 Neut # (Auto) 10.2 x10^3/uL (2.2-4.8) H 02/02/20 03:50 Lymph # (Auto) 0.5 X10^3/uL (1.3-2.9) L 02/02/20 03:50 [place] # (Auto) 0.3 x10^3/uL (0.3-0.8) 02/02/20 03:50 Eos # (Auto) 0.0 x10^3/uL (0.0-0.2) 02/02/20 03:50 Baso # (Auto) 0.0 X10^3/uL (0.0-0.1) 02/02/20 03:50 Absolute Nucleated RBC 0.1 /100WBC 02/02/20 03:50 Total Counted 100 02/02/20 03:50 Neutrophils % (Manual) 96 % (39-76) H 02/02/20 03:50 Band Neutrophils % 0 % (0-10) 02/02/20 03:50 Lymphocytes % (Manual) 2 % (13-43) L 02/02/20 03:50 Monocytes % (Manual) 2 % (4-9) L 02/02/20 03:50 Plt Morphology Comment Normal (NORMAL) 02/02/20 03:50 RBC Morphology Abnormal (NORMAL) A 02/02/20 03:50 Anisocytosis Slight A 02/02/20 03:50 PT 13.5 SECONDS (11.8-14.3) 02/02/20 01:20 INR Target Range - 02/02/20 01:20 INR 1.06 (0.8-1.3) 02/02/20 01:20 Sample Site Lr 02/02/20 04:42 ABG pH 7.470 (7.35-7.45) H 02/02/20 04:42 ABG pCO2 55.0 mmHg (35.0-45.0) H* 02/02/20 04:42 ABG pO2 61.0 mmHg (80.0-100.0) L 02/02/20 04:42 ABG HCO3 40.0 mmol/L (22-26) H* 02/02/20 04:42 ABG O2 Saturation 93.0 % (90-100) 02/02/20 04:42 ABG Base Excess 14.0 mmol/L (-2.0-2.0) H 02/02/20 04:42 Dominik Test Pos 02/02/20 04:42 A-a Gradient 583.0 mmHg 02/02/20 04:42 FiO2 100 02/02/20 04:42 Blood Gas Comments Wilian well ae 02/02/20 04:42 Sodium 139 mmol/L (136-145) 02/02/20 03:50 Corrected Sodium 141 mmol/L (136-145) 02/02/20 03:50 Potassium 3.7 mmol/L (3.5-5.1) 02/02/20 03:50 Chloride 100 mmol/L (98-107) 02/02/20 03:50 Carbon Dioxide 37.2 mmol/L (21-32) H 02/02/20 03:50 BUN 25 mg/dL (7-18) H 02/02/20 03:50 Creatinine 1.02 mg/dL (0.55-1.02) 02/02/20 03:50 Est GFR (MDRD) Af Amer > 60 (>60) 02/02/20 03:50 Est GFR (MDRD) Non-Af 57 (>60) L 02/02/20 03:50 Glucose 202 mg/dL (65-99) H 02/02/20 03:50 Calcium 7.7 mg/dL (8.5-10.1) L 02/02/20 03:50 Corrected Calcium 8.7 mg/dL (8.5-10.1) 02/02/20 03:50 Magnesium 2.3 mg/dL (1.7-2.9) 02/02/20 03:50 Ferritin 289 ng/mL (8-252) H 02/02/20 03:50 Total Bilirubin 0.60 mg/dL (0.2-1.0) 02/02/20 03:50 AST 53 Units/L (15-37) H 02/02/20 03:50 ALT 39 Units/L (12-78) 02/02/20 03:50 Alkaline Phosphatase 88 Units/L (46-116) 02/02/20 03:50 Troponin I < 0.02 ng/mL (0-1.5) 01/28/20 01:35 C-Reactive Protein 8.10 mg/L (0-3.0) H 02/02/20 03:50 Total Protein 5.7 g/dL (6.4-8.2) L 02/02/20 03:50 Albumin 2.8 g/dL (3.4-5.0) L 02/02/20 03:50 Globulin 2.9 g/dL (2.5-4.5) 02/02/20 03:50 Albumin/Globulin Ratio 1.0 Ratio (1.1-2.1) L 02/02/20 03:50 Specimen Type Catherized urine 01/29/20 04:50 Urine Color Yellow (YELLOW) 01/29/20 04:50 Urine Appearance Clear (CLEAR) 01/29/20 04:50 Urine pH 6.0 (5.0 - 8.0) 01/29/20 04:50 Ur Specific [place] 1.020 (1.000-1.030) 01/29/20 04:50 Urine Protein 1+ (NEGATIVE) 01/29/20 04:50 Urine Glucose (UA) 1+ (NEGATIVE) 01/29/20 04:50 Urine Ketones 1+ (NEGATIVE) 01/29/20 04:50 Urine Occult Blood Negative (NEGATIVE) 01/29/20 04:50 Urine Nitrite Negative (NEGATIVE) 01/29/20 04:50 Urine Bilirubin Negative (NEGATIVE) 01/29/20 04:50 Urine Urobilinogen Normal (NORMAL) 01/29/20 04:50 Ur Leukocyte Esterase Negative (NEGATIVE) 01/29/20 04:50 Urine RBC None seen /HPF (0-3) 01/29/20 04:50 Urine WBC None seen /HPF (0-5) 01/29/20 04:50 Ur Squamous Epith Cells Rare /HPF (NEGATIVE) 01/29/20 04:50 Urine Bacteria Negative /HPF (NEGATIVE) 01/29/20 04:50 Ur Culture Indicated? No/not indicated 01/29/20 04:50 Blood Type A NEGATIVE 01/28/20 01:35 Antibody Screen Negative 01/28/20 01:35 - Plan (1) Pneumonia due to 2019 novel coronavirus Status: Acute Plan: NORMAL SALINE AT KVO, ALBUMIN 25% IV DAILY, PROCALAMINE AT 40 ML/HR, AZITHROMYCIN 500MG IV DAILY, REMDESIVIR 100MG IV DAILY, SOLU-MEDROL 125MG IV Q8H, DUONEBS QID, PULMICORT NEBS BID, MUCOMYST IN NEB [place], LOVENOX 30MG SC BID, THE POTASSIUM AND MAGNESIUM PROTOCOLS, AND HOME MEDICATIONS WERE RESUMED. WE WILL ORDER CONVALESCENT PLASMA TO BE TRANSFUSED WHEN IT IS AVAILABLE. (2) Hypoxia Status: Acute (3) Acute hypokalemia Status: Acute (4) Lobar pneumonia Status: Acute
[2020-02-02] MEDS: MILK OF MAGNESIA PO SCH (21:15)
[2020-02-02] MEDS: COLACE CAP 100 MG PO SCH (21:15)
[2020-02-02] MEDS: PROCALAMINE 3 % 1,000 ML IV SCH (21:46)
[2020-02-03] MEDS: NS 1000 ML 1,000 ML IV SCH ×2 (02:32→21:37)
[2020-02-03] MEDS: TYLENOL 325 MG TAB PO PRN (03:58)
[2020-02-03 05:01] LABS: BASOPHILS % (AUTO) 0 % (0.2-1.0); HEMATOCRIT 28.5 % (36.0-47.0); HEMOGLOBIN 9.8 g/dL (12.0-16.0); LYMPHOCYTES # (AUTO) 0.3 X10^3/uL (1.3-2.9); LYMPHOCYTES % (AUTO) 2.8 % (21.0-51.0); MEAN CORPUSCULAR HEMOGLOBIN 29.1 pg (27.0-34.0); MEAN CORPUSCULAR HGB CONC 34.2 g/dL (33.0-35.0); MEAN PLATELET VOLUME 7.9 fL (7.4-11.0); MONOCYTES # (AUTO) 0.4 x10^3/uL (0.3-0.8); MONOCYTES % (AUTO) 3.6 % (0.0-13.0); NEUTROPHILS # (AUTO) 9.4 x10^3/uL (2.2-4.8); NEUTROPHILS % (AUTO) 93.6 % (42.0-75.0); PLATELET COUNT 253 X10^3/uL (150.0-450.0); RED BLOOD COUNT 3.35 X10^6/uL (3.5-5.4); RED CELL DISTRIBUTION WIDTH 13.3 % (11.6-16.5); WHITE BLOOD COUNT 10.1 X10^3/uL (3.6-10.0)
[2020-02-03] MEDS: SOLU-Medrol 125 MG VIAL IVP SCH ×3 (05:01→21:30)
[2020-02-03] MEDS: XANAX PO SCH ×3 (05:01→21:30)
[2020-02-03 05:07] LABS: ALANINE AMINOTRANSFERASE 30 Units/L (12-78); ALKALINE PHOSPHATASE 77 Units/L (46-116); ASPARTATE AMINO TRANSFERASE 26 Units/L (15-37); BLOOD UREA NITROGEN 23 mg/dL (7-18); CALCIUM 7.7 mg/dL (8.5-10.1); CARBON DIOXIDE 38.4 mmol/L (21-32); CHLORIDE 99 mmol/L (98-107); COR CA(FOR HYPOALB) 8.5 mg/dL (8.5-10.1); COR NA(FOR HYPERGLY) 141 mmol/L (136-145); CREATININE 0.98 mg/dL (0.55-1.02); MAGNESIUM 2.5 mg/dL (1.7-2.9); SODIUM 138 mmol/L (136-145); TOTAL PROTEIN 5.6 g/dL (6.4-8.2); eGFR NON BLACK RACES > 60 (>60)
[2020-02-03] MEDS: ROBITUSSIN DM PO PRN ×2 (05:27→21:32)
[2020-02-03] MEDS: ZOFRAN INJ 4 MG VIAL IVP PRN (05:27)
[2020-02-03 05:58] LABS: PLATELET MORPHOLOGY COMMENT NORMAL (NORMAL)
[2020-02-03 05:59] LABS: ANISOCYTOSIS SLIGHT; HYPOCHROMASIA SLIGHT
--- NOTE | 2020-02-03 06:04 | RAD ---
HISTORYShortness of breathSTUDYChest AP [id number] heart is enlarged. The lungs remain hypoinflated. Diffuse interstitial, ground-glass and alveolar infiltrates are again identified not significantly changed in degree or distribution from the prior examination considering a difference in film technique. No pleural effusions are identified. Bony thorax is unremarkable.IMPRESSIONCardiomegaly without congestive heart failureNo change bilateral lung infiltrates compared with the prior examinationElectronically signed by: RACHNA GAGE (Feb 03, 2020 06:02:24)
[2020-02-03 06:42] LABS: ABG BASE EXCESS 14.4 mmol/L (-2.0-2.0)
[2020-02-03 06:45] LABS: ABG ALLEN TEST POS
[2020-02-03] MEDS ORDERED: LEXAPRO ONE (08:30)
[2020-02-03] MEDS: ALBUMIN HUMAN 25%- 100 ML 100 ML IV SCH (09:00)
[2020-02-03] MEDS: PULMICORT NEB TX 0.5 MG NEB SCH ×2 (09:20→20:25)
[2020-02-03] MEDS: DUONEB 0.5 MG/3 MG (3 mL) NEB SCH ×4 (09:20→20:25)
[2020-02-03] MEDS: REMDESIVIR (INVESTIGATIONAL DRUG GS-5734) 100 MG in NS 250 ML IV 250 ML IV SCH (09:30)
[2020-02-03] MEDS: HYDROCHLOROTHIAZIDE 25 MG TAB PO SCH (10:34)
[2020-02-03] MEDS: PriLOSEC PO SCH (10:35)
[2020-02-03] MEDS: ZITHROMAX INJ 500 MG VIAL 500 MG in NS 250 ML IV 250 ML IV SCH (10:35)
[2020-02-03] MEDS: ZINC SULFATE PO SCH ×2 (10:36→21:31)
[2020-02-03] MEDS: ASPIRIN EC 81 MG PO SCH (10:36)
[2020-02-03] MEDS: PLAVIX PO SCH (10:37)
[2020-02-03] MEDS: ARICEPT TAB 10 MG PO SCH (10:38)
[2020-02-03] MEDS: MILK OF MAGNESIA PO SCH ×2 (10:39→21:31)
[2020-02-03] MEDS: ZyrTEC TAB 10 MG PO SCH (10:40)
[2020-02-03] MEDS: K-DUR TAB 20 MEQ PO PRN (10:41)
[2020-02-03] MEDS: NAMENDA TAB 10 MG PO SCH (10:43)
[2020-02-03] MEDS: LEXAPRO PO SCH (10:43)
--- NOTE | 2020-02-03 11:07 | PCM.PROG ---
Progress Note - Progress Note for Day of Date of Exam: 02/03/20 - Subjective Subjective: IS BEING TREATED FOR PNEUMONIA DUE TO COVID-19, HYPOXIA, AND HYPOKALEMIA. TODAY, SHE IS ALERT AND ORIENTED, LYING IN BED ON MORNING ROUNDS. SHE CONTINUES WITH COMPLAINTS OF COUGH, SHORNTESS OF BREATH, WEAKNESS, AND HEADACHE TODAY. SHE REPORTS INCREASE IN SHORTNESS OF BREATH THIS MORNING. SHE IS CURRENTLY UTILIZING THE NON-REBREATHER. SHE HAS USED THE BIPAP SOME THROUGHOUT THE NIGHT. OXYGEN SATURATIONS HAVE OCCATIONALLY FALLEN TO THE 80s ON WHILE ON THE BIPAP. ON EXAMINATION, HEART IS REGULAR IN RATE AND RHYTHM. BILATERAL LUNGS ARE NOTED WITH SCATTERED WHEEZING THROUGHOUT. ABDOMEN IS ROUND, SOFT, AND NON-TENDER WITH NORMAL BOWEL SOUNDS NOTED IN ALL QUADRANTS. HER VITALS THIS MORNING ARE: 98.2-72-26-95%NRB-140/63. LABS WERE OBTAINED. ABNORMAL LAB VALUES INCLUDE THE FOLLOWING: WBC 10.1, RBC 3.35, HGB 9.8, HCT 28.5, CARBON DIOXIDE 38.4, BUN 23, GLUCOSE 223, CALCIUM 7.7, CRP 17.40, TOTAL PROTEIN 5.6, ALBUMIN 3.0. AN ABG WAS OBTAINED AND REVEALED: PH 7.450, PC02 59, P02 61, HC03 41, O2 SAT 92, FI02 100. SHE HAS RECEIVED TWO UNITS OF CONVALESCENT PLASMA SINCE ADMISSION. SHE IS CURRENTLY RECEIVING NORMAL SALINE AT KVO, PROCALAMINE AT 40 ML/HR, ALBUMIN 25% IV DAILY, AZITHROMYCIN 500MG IV DAILY, REMDESIVIR 100MG IV DAILY, SOLU-MEDROL 125MG IV Q8H, DUONEBS QID, PULMICORT NEBS BID, MUCOMYST IN NEB [place] LOVENOX 30MG SC BID, THE POTASSIUM AND MAGNESIUM PROTOCOLS, AND HOME MED ICATIONS WERE RESUMED. WE WILL CONTINUE WITH CURRENT PLAN OF CARE TODAY. WE WILL ATTEMPT TO WEAN OXYGEN. OTHERWISE, WE PLAN TO FOLLOW UP WITH AM LABS, CHEST XRAY, AND ABG AND CONTINUE TO MONITOR. - Past Medical Family Social History Past Med/Fam/Surg Hx: No changes since H&P Allergies: Allergies levofloxacin Allergy (Verified 01/27/20 21:24) - Review of Systems ROS: No change since H&P - Vital Signs and I&O's Vital Signs: Temperature 98.2 F Pulse Rate [Left Brachial] 72 Pulse Rate 79 Respiratory Rate 26 Blood Pressure [Left Arm] 140/63 Blood Pressure 151/68 O2 Sat by Pulse Oximetry 95 Intake and Output: Intake & Output 01/31/20 02/01/20 02/02/20 02/03/20 11:59 11:59 11:59 11:59 Intake Total 1383 / 1383 3264 / 3264 2420 / 2420 1881 / 1881 Output Total 1700 / 1700 2300 / 2300 2100 / 2100 1800 / 1800 Balance -317 / -317 964 / 964 320 / 320 81 / 81 - Physical Exam Oriented: Normal Eyes: Normal Ear: Normal Nose: Normal Throat: Normal Respiratory: Generalized, Diminished, Wheezes Cardiovascular: Normal : Normal Auscultation: Bowel Sounds: Normal Tenderness: Normal Skin: Normal Musculoskeletal: Normal Psychiatric: Normal Mood Description: Calm Affect: Normal Speech Pattern: Clear, Appropriate - Laboratory and Diagnostics Result Diagrams: 02/03/20 03:54 02/03/20 03:54 Labs: Laboratory WBC 10.1 X10^3/uL (3.6-10.0) H 02/03/20 03:54 RBC 3.35 X10^6/uL (3.5-5.4) L 02/03/20 03:54 Hgb 9.8 g/dL (12.0-16.0) L 02/03/20 03:54 Hct 28.5 % (36.0-47.0) L 02/03/20 03:54 MCV 85.0 fL (80.0-100.0) 02/03/20 03:54 MCH 29.1 pg (27.0-34.0) 02/03/20 03:54 MCHC 34.2 g/dL (33.0-35.0) 02/03/20 03:54 RDW 13.3 % (11.6-16.5) 02/03/20 03:54 Plt Count 253 X10^3/uL (150.0-450.0) 02/03/20 03:54 Plt Count Comment Adequate (ADEQUATE) 02/03/20 03:54 MPV 7.9 fL (7.4-11.0) 02/03/20 03:54 Neut % (Auto) 93.6 % (42.0-75.0) H 02/03/20 03:54 Lymph % (Auto) 2.8 % (21.0-51.0) L 02/03/20 03:54 [place] % (Auto) 3.6 % (0.0-13.0) 02/03/20 03:54 Eos % (Auto) 0.0 % (0.9-2.9) L 02/03/20 03:54 Baso % (Auto) 0 % (0.2-1.0) L 02/03/20 03:54 Neut # (Auto) 9.4 x10^3/uL (2.2-4.8) H 02/03/20 03:54 Lymph # (Auto) 0.3 X10^3/uL (1.3-2.9) L 02/03/20 03:54 [place] # (Auto) 0.4 x10^3/uL (0.3-0.8) 02/03/20 03:54 Eos # (Auto) 0.0 x10^3/uL (0.0-0.2) 02/03/20 03:54 Baso # (Auto) 0.0 X10^3/uL (0.0-0.1) 02/03/20 03:54 Absolute Nucleated RBC 0.1 /100WBC 02/03/20 03:54 Total Counted 100 02/03/20 03:54 Neutrophils % (Manual) 96 % (39-76) H 02/03/20 03:54 Band Neutrophils % 0 % (0-10) 02/02/20 03:50 Lymphocytes % (Manual) 2 % (13-43) L 02/03/20 03:54 Monocytes % (Manual) 2 % (4-9) L 02/03/20 03:54 Plt Morphology Comment Normal (NORMAL) 02/03/20 03:54 RBC Morphology Abnormal (NORMAL) A 02/03/20 03:54 Hypochromasia Slight A 02/03/20 03:54 Anisocytosis Slight A 02/03/20 03:54 PT 13.5 SECONDS (11.8-14.3) 02/02/20 01:20 INR Target Range - 02/02/20 01:20 INR 1.06 (0.8-1.3) 02/02/20 01:20 Sample Site Rrad 02/03/20 06:21 ABG pH 7.450 (7.35-7.45) 02/03/20 06:21 ABG pCO2 59.0 mmHg (35.0-45.0) H* 02/03/20 06:21 ABG pO2 61.0 mmHg (80.0-100.0) L 02/03/20 06:21 ABG HCO3 41.0 mmol/L (22-26) H* 02/03/20 06:21 ABG O2 Saturation 92.0 % (90-100) 02/03/20 06:21 ABG Base Excess 14.4 mmol/L (-2.0-2.0) H 02/03/20 06:21 Dominik Test Pos 02/03/20 06:21 A-a Gradient 578.0 mmHg 02/03/20 06:21 FiO2 100.0 02/03/20 06:21 Blood Gas Comments Wilian abg well-mtf 02/03/20 06:21 Sodium 138 mmol/L (136-145) 02/03/20 03:54 Corrected Sodium 141 mmol/L (136-145) 02/03/20 03:54 Potassium 3.6 mmol/L (3.5-5.1) 02/03/20 03:54 Chloride 99 mmol/L (98-107) 02/03/20 03:54 Carbon Dioxide 38.4 mmol/L (21-32) H 02/03/20 03:54 BUN 23 mg/dL (7-18) H 02/03/20 03:54 Creatinine 0.98 mg/dL (0.55-1.02) 02/03/20 03:54 Est GFR (MDRD) Af Amer > 60 (>60) 02/03/20 03:54 Est GFR (MDRD) Non-Af > 60 (>60) 02/03/20 03:54 Glucose 223 mg/dL (65-99) H 02/03/20 03:54 Calcium 7.7 mg/dL (8.5-10.1) L 02/03/20 03:54 Corrected Calcium 8.5 mg/dL (8.5-10.1) 02/03/20 03:54 Magnesium 2.5 mg/dL (1.7-2.9) 02/03/20 03:54 Ferritin 241 ng/mL (8-252) 02/03/20 03:54 Total Bilirubin 0.50 mg/dL (0.2-1.0) 02/03/20 03:54 AST 26 Units/L (15-37) 02/03/20 03:54 ALT 30 Units/L (12-78) 02/03/20 03:54 Alkaline Phosphatase 77 Units/L (46-116) 02/03/20 03:54 Troponin I < 0.02 ng/mL (0-1.5) 01/28/20 01:35 C-Reactive Protein 17.40 mg/L (0-3.0) H 02/03/20 03:54 Total Protein 5.6 g/dL (6.4-8.2) L 02/03/20 03:54 Albumin 3.0 g/dL (3.4-5.0) L 02/03/20 03:54 Globulin 2.6 g/dL (2.5-4.5) 02/03/20 03:54 Albumin/Globulin Ratio 1.2 Ratio (1.1-2.1) 02/03/20 03:54 Specimen Type Catherized urine 01/29/20 04:50 Urine Color Yellow (YELLOW) 01/29/20 04:50 Urine Appearance Clear (CLEAR) 01/29/20 04:50 Urine pH 6.0 (5.0 - 8.0) 01/29/20 04:50 Ur Specific [place] 1.020 (1.000-1.030) 01/29/20 04:50 Urine Protein 1+ (NEGATIVE) 01/29/20 04:50 Urine Glucose (UA) 1+ (NEGATIVE) 01/29/20 04:50 Urine Ketones 1+ (NEGATIVE) 01/29/20 04:50 Urine Occult Blood Negative (NEGATIVE) 01/29/20 04:50 Urine Nitrite Negative (NEGATIVE) 01/29/20 04:50 Urine Bilirubin Negative (NEGATIVE) 01/29/20 04:50 Urine Urobilinogen Normal (NORMAL) 01/29/20 04:50 Ur Leukocyte Esterase Negative (NEGATIVE) 01/29/20 04:50 Urine RBC None seen /HPF (0-3) 01/29/20 04:50 Urine WBC None seen /HPF (0-5) 01/29/20 04:50 Ur Squamous Epith Cells Rare /HPF (NEGATIVE) 01/29/20 04:50 Urine Bacteria Negative /HPF (NEGATIVE) 01/29/20 04:50 Ur Culture Indicated? No/not indicated 01/29/20 04:50 Blood Type A NEGATIVE 01/28/20 01:35 Antibody Screen Negative 01/28/20 01:35 - Plan (1) Pneumonia due to 2019 novel coronavirus Status: Acute Plan: NORMAL SALINE AT KVO, ALBUMIN 25% IV DAILY, PROCALAMINE AT 40 ML/HR, AZITHROMYCIN 500MG IV DAILY, REMDESIVIR 100MG IV DAILY, SOLU-MEDROL 125MG IV Q8H, DUONEBS QID, PULMICORT NEBS BID, MUCOMYST IN NEB [place], LOVENOX 30MG SC BID, THE POTASSIUM AND MAGNESIUM PROTOCOLS, AND HOME MEDICATIONS WERE RESUMED. WE WILL ORDER CONVALESCENT PLASMA TO BE TRANSFUSED WHEN IT IS AVAILABLE. (2) Hypoxia Status: Acute (3) Acute hypokalemia Status: Acute (4) Lobar pneumonia Status: Acute
[2020-02-03 11:32] VITALS: BMI 33.9
[2020-02-03] MEDS: MORPHINE SULFATE INJ 2 MG INJ IVP PRN ×2 (14:03→20:50)
[2020-02-03] MEDS: COLACE CAP 100 MG PO SCH (21:31)
[2020-02-03] MEDS: PROCALAMINE 3 % 1,000 ML IV SCH (21:38)
[2020-02-03] MEDS: TUSSIONEX PENNKINETIC SUSP PO PRN (22:36)
[2020-02-04] MEDS: NS 1000 ML 1,000 ML IV SCH (04:50)
[2020-02-04 04:57] LABS: BASOPHILS % (AUTO) 0.2 % (0.2-1.0); HEMOGLOBIN 9.5 g/dL (12.0-16.0); LYMPHOCYTES # (AUTO) 0.2 X10^3/uL (1.3-2.9); MEAN CORPUSCULAR HEMOGLOBIN 29.2 pg (27.0-34.0); MEAN CORPUSCULAR HGB CONC 33.9 g/dL (33.0-35.0); MONOCYTES # (AUTO) 0.4 x10^3/uL (0.3-0.8); MONOCYTES % (AUTO) 3.3 % (0.0-13.0); NEUTROPHILS % (AUTO) 94.5 % (42.0-75.0); PLATELET COUNT 272 X10^3/uL (150.0-450.0); RED BLOOD COUNT 3.25 X10^6/uL (3.5-5.4); RED CELL DISTRIBUTION WIDTH 13.5 % (11.6-16.5); WHITE BLOOD COUNT 11.6 X10^3/uL (3.6-10.0)
[2020-02-04 05:17] LABS: ALANINE AMINOTRANSFERASE 25 Units/L (12-78); ALKALINE PHOSPHATASE 75 Units/L (46-116); ASPARTATE AMINO TRANSFERASE 24 Units/L (15-37); BLOOD UREA NITROGEN 23 mg/dL (7-18); CALCIUM 7.5 mg/dL (8.5-10.1); CARBON DIOXIDE 39.9 mmol/L (21-32); CHLORIDE 98 mmol/L (98-107); COR CA(FOR HYPOALB) 8.3 mg/dL (8.5-10.1); COR NA(FOR HYPERGLY) 143 mmol/L (136-145); CREATININE 0.87 mg/dL (0.55-1.02); SODIUM 140 mmol/L (136-145); TOTAL PROTEIN 5.4 g/dL (6.4-8.2); eGFR NON BLACK RACES > 60 (>60)
[2020-02-04 05:23] LABS: ABG BASE EXCESS 19.5 mmol/L (-2.0-2.0)
[2020-02-04 05:25] LABS: ABG HCO3 46.9 mmol/L (22-26)
[2020-02-04 05:26] LABS: ABG ALLEN TEST POS
[2020-02-04 05:35] LABS: BAND NEUTROPHILS % 2 % (0-10)
[2020-02-04 05:36] LABS: ANISOCYTOSIS SLIGHT; HYPOCHROMASIA SLIGHT; PLATELET MORPHOLOGY COMMENT NORMAL (NORMAL)
[2020-02-04] MEDS: SOLU-Medrol 125 MG VIAL IVP SCH ×3 (06:21→21:20)
[2020-02-04] MEDS: XANAX PO SCH ×3 (06:21→21:25)
[2020-02-04] MEDS ORDERED: LEXAPRO ONE (08:29)
[2020-02-04] MEDS: PULMICORT NEB TX 0.5 MG NEB SCH ×2 (08:50→21:10)
[2020-02-04] MEDS: DUONEB 0.5 MG/3 MG (3 mL) NEB SCH ×4 (08:50→21:10)
[2020-02-04] MEDS: ALBUMIN HUMAN 25%- 100 ML 100 ML IV SCH (09:00)
[2020-02-04] MEDS: LEXAPRO PO SCH (09:00)
[2020-02-04] MEDS: ARICEPT TAB 10 MG PO SCH (09:00)
[2020-02-04] MEDS: NAMENDA TAB 10 MG PO SCH (09:00)
[2020-02-04] MEDS: ZINC SULFATE PO SCH ×2 (09:00→21:20)
[2020-02-04] MEDS: PLAVIX PO SCH (09:00)
[2020-02-04] MEDS: ZyrTEC TAB 10 MG PO SCH (09:00)
[2020-02-04] MEDS: HYDROCHLOROTHIAZIDE 25 MG TAB PO SCH (09:00)
[2020-02-04] MEDS: ZOFRAN INJ 4 MG VIAL IVP PRN ×3 (09:00→21:25)
[2020-02-04] MEDS: PriLOSEC PO SCH (09:00)
[2020-02-04] MEDS: REMDESIVIR (INVESTIGATIONAL DRUG GS-5734) 100 MG in NS 250 ML IV 250 ML IV SCH (09:00)
[2020-02-04] MEDS: ASPIRIN EC 81 MG PO SCH (09:00)
[2020-02-04] MEDS: ZITHROMAX INJ 500 MG VIAL 500 MG in NS 250 ML IV 250 ML IV SCH (09:00)
[2020-02-04] MEDS: MORPHINE SULFATE INJ 2 MG INJ IVP PRN (09:10)
--- NOTE | 2020-02-04 10:44 | PCM.PROG ---
Progress Note - Progress Note for Day of Date of Exam: 02/04/20 - Subjective Subjective: IS BEING TREATED FOR PNEUMONIA DUE TO COVID-19, HYPOXIA, AND HYPOKALEMIA. TODAY, SHE IS ALERT AND ORIENTED, LYING IN BED ON MORNING ROUNDS. SHE CONTINUES WITH COMPLAINTS OF SHORTNESS OF BREATH AND WEAKNESS TODAY. SHORTNESS OF BREATH IS WORSE ON EXERTION AND HAS CONTINUES TO WORSEN. SHE IS CURRENTLY UTILIZING THE NON-REBREATHER. ON EXAMINATION, HEART IS REGULAR IN RATE AND RHYTHM. BILATERAL LUNGS ARE NOTED WITH SCATTERED WHEEZING THROUGHOUT. ABDOMEN IS ROUND, SOFT, AND NON-TENDER WITH NORMAL BOWEL SOUNDS NOTED IN ALL QUADRANTS. HER VITALS THIS MORNING ARE: 98.7-62-50-88%NRB-147/65. LABS WERE OBTAINED. ABNORMAL LAB VALUES INCLUDE THE FOLLOWING: WBC 11.6, RBC 3.25, HGB 9.5, HCT 28.0, CARBON DIOXIDE 39.9, BUN 23, GLUCOSE 207, CALCIUM 7.5, CRP 19.10, TOTAL PROTEIN 5.4, ALBUMIN 3.0. AN ABG WAS OBTAINED AND REVEALED: PH 7.460, PC02 66, P02 45, HC03 46.9, 02 SAT 83, BASE EXCESS 19.5, FI02 100. SHE HAS RECEIVED TWO UNITS OF CONVALESCENT PLASMA SINCE ADMISSION. SHE IS CURRENTLY RECEIVING NORMAL SALINE AT KVO, PROCALAMINE AT 40 ML/HR, ALBUMIN 25% IV DAILY, AZITHROMYCIN 500MG IV DAILY, REMDESIVIR 100MG IV DAILY, SOLU-MEDROL 125MG IV Q8H, DUONEBS QID, PULMICORT NEBS BID, MUCOMYST IN NEB [place] LOVENOX 30MG SC BID, MORPHINE 2MG IV Q6H PRN, TUSSIONEX 5ML PO Q12H PRN, ROBITUSSIN DM 10ML PO Q4H PRN, THE POTASSIUM AND MAGNESIUM PROTOCOLS, AND HOME MEDICATIONS WERE RESUMED. WE WILL ORDER FOR HER TO BE PLACED ON THE BIPAP THIS MORNING. OTHERWISE, WE PLAN TO FOLLOW UP WITH AM LABS, CHEST XRAY, AND ABG AND CONTINUE TO MONITOR. - Past Medical Family Social History Past Med/Fam/Surg Hx: No changes since H&P Allergies: Allergies levofloxacin Allergy (Verified 01/27/20 21:24) - Review of Systems ROS: No change since H&P - Vital Signs and I&O's Vital Signs: Temperature 98.2 F Pulse Rate [Left Brachial] 62 Pulse Rate 70 Respiratory Rate 50 Blood Pressure [Left Arm] 147/65 Blood Pressure 151/68 O2 Sat by Pulse Oximetry 88 Intake and Output: Intake & Output 02/01/20 02/02/20 02/03/20 02/04/20 11:59 11:59 11:59 11:59 Intake Total 3264 / 3264 2420 / 2420 1881 / 1881 2710 / 2710 Output Total 2300 / 2300 2100 / 2100 1800 / 1800 2200 / 2200 Balance 964 / 964 320 / 320 81 / 81 510 / 510 - Physical Exam Oriented: Normal Eyes: Normal Ear: Normal Nose: Normal Throat: Normal Respiratory: Generalized, Diminished, Wheezes Cardiovascular: Normal : Normal Auscultation: Bowel Sounds: Normal Tenderness: Normal Skin: Normal Musculoskeletal: Normal Psychiatric: Normal Mood Description: Calm Affect: Normal Speech Pattern: Clear, Appropriate - Laboratory and Diagnostics Result Diagrams: 02/04/20 04:11 02/04/20 04:11 Labs: Laboratory WBC 11.6 X10^3/uL (3.6-10.0) H 02/04/20 04:11 RBC 3.25 X10^6/uL (3.5-5.4) L 02/04/20 04:11 Hgb 9.5 g/dL (12.0-16.0) L 02/04/20 04:11 Hct 28.0 % (36.0-47.0) L 02/04/20 04:11 MCV 86.0 fL (80.0-100.0) 02/04/20 04:11 MCH 29.2 pg (27.0-34.0) 02/04/20 04:11 MCHC 33.9 g/dL (33.0-35.0) 02/04/20 04:11 RDW 13.5 % (11.6-16.5) 02/04/20 04:11 Plt Count 272 X10^3/uL (150.0-450.0) 02/04/20 04:11 Plt Count Comment Adequate (ADEQUATE) 02/04/20 04:11 MPV 8.0 fL (7.4-11.0) 02/04/20 04:11 Neut % (Auto) 94.5 % (42.0-75.0) H 02/04/20 04:11 Lymph % (Auto) 2.0 % (21.0-51.0) L 02/04/20 04:11 [place] % (Auto) 3.3 % (0.0-13.0) 02/04/20 04:11 Eos % (Auto) 0.0 % (0.9-2.9) L 02/04/20 04:11 Baso % (Auto) 0.2 % (0.2-1.0) 02/04/20 04:11 Neut # (Auto) 11.0 x10^3/uL (2.2-4.8) H 02/04/20 04:11 Lymph # (Auto) 0.2 X10^3/uL (1.3-2.9) L 02/04/20 04:11 [place] # (Auto) 0.4 x10^3/uL (0.3-0.8) 02/04/20 04:11 Eos # (Auto) 0.0 x10^3/uL (0.0-0.2) 02/04/20 04:11 Baso # (Auto) 0.0 X10^3/uL (0.0-0.1) 02/04/20 04:11 Absolute Nucleated RBC 0.0 /100WBC 02/04/20 04:11 Total Counted 100 02/04/20 04:11 Neutrophils % (Manual) 93 % (39-76) H 02/04/20 04:11 Band Neutrophils % 2 % (0-10) 02/04/20 04:11 Lymphocytes % (Manual) 3 % (13-43) L 02/04/20 04:11 Monocytes % (Manual) 2 % (4-9) L 02/04/20 04:11 Plt Morphology Comment Normal (NORMAL) 02/04/20 04:11 RBC Morphology Abnormal (NORMAL) A 02/04/20 04:11 Hypochromasia Slight A 02/04/20 04:11 Anisocytosis Slight A 02/04/20 04:11 PT 13.5 SECONDS (11.8-14.3) 02/02/20 01:20 INR Target Range - 02/02/20 01:20 INR 1.06 (0.8-1.3) 02/02/20 01:20 Sample Site Rra 08/20/20 05:20 ABG pH 7.460 (7.35-7.45) H 02/04/20 05:20 ABG pCO2 66.0 mmHg (35.0-45.0) H* 02/04/20 05:20 ABG pO2 45.0 mmHg (80.0-100.0) L* 02/04/20 05:20 ABG HCO3 46.9 mmol/L (22-26) H* 02/04/20 05:20 ABG O2 Saturation 83.0 % (90-100) L* 02/04/20 05:20 ABG Base Excess 19.5 mmol/L (-2.0-2.0) H 02/04/20 05:20 Dominik Test Pos 02/04/20 05:20 A-a Gradient 586.0 mmHg 02/04/20 05:20 FiO2 100.0 02/04/20 05:20 Blood Gas Comments Pt korin well eb 02/04/20 05:20 Sodium 140 mmol/L (136-145) 02/04/20 04:11 Corrected Sodium 143 mmol/L (136-145) 02/04/20 04:11 Potassium 3.8 mmol/L (3.5-5.1) 02/04/20 04:11 Chloride 98 mmol/L (98-107) 02/04/20 04:11 Carbon Dioxide 39.9 mmol/L (21-32) H 02/04/20 04:11 BUN 23 mg/dL (7-18) H 02/04/20 04:11 Creatinine 0.87 mg/dL (0.55-1.02) 02/04/20 04:11 Est GFR (MDRD) Af Amer > 60 (>60) 02/04/20 04:11 Est GFR (MDRD) Non-Af > 60 (>60) 02/04/20 04:11 Glucose 207 mg/dL (65-99) H 02/04/20 04:11 Calcium 7.5 mg/dL (8.5-10.1) L 02/04/20 04:11 Corrected Calcium 8.3 mg/dL (8.5-10.1) L 02/04/20 04:11 Magnesium 2.5 mg/dL (1.7-2.9) 02/03/20 03:54 Ferritin 231 ng/mL (8-252) 02/04/20 04:11 Total Bilirubin 0.50 mg/dL (0.2-1.0) 02/04/20 04:11 AST 24 Units/L (15-37) 02/04/20 04:11 ALT 25 Units/L (12-78) 02/04/20 04:11 Alkaline Phosphatase 75 Units/L (46-116) 02/04/20 04:11 Troponin I < 0.02 ng/mL (0-1.5) 01/28/20 01:35 C-Reactive Protein 19.10 mg/L (0-3.0) H 02/04/20 04:11 Total Protein 5.4 g/dL (6.4-8.2) L 02/04/20 04:11 Albumin 3.0 g/dL (3.4-5.0) L 02/04/20 04:11 Globulin 2.4 g/dL (2.5-4.5) L 02/04/20 04:11 Albumin/Globulin Ratio 1.3 Ratio (1.1-2.1) 02/04/20 04:11 Specimen Type Catherized urine 01/29/20 04:50 Urine Color Yellow (YELLOW) 01/29/20 04:50 Urine Appearance Clear (CLEAR) 01/29/20 04:50 Urine pH 6.0 (5.0 - 8.0) 01/29/20 04:50 Ur Specific [place] 1.020 (1.000-1.030) 01/29/20 04:50 Urine Protein 1+ (NEGATIVE) 01/29/20 04:50 Urine Glucose (UA) 1+ (NEGATIVE) 01/29/20 04:50 Urine Ketones 1+ (NEGATIVE) 01/29/20 04:50 Urine Occult Blood Negative (NEGATIVE) 01/29/20 04:50 Urine Nitrite Negative (NEGATIVE) 01/29/20 04:50 Urine Bilirubin Negative (NEGATIVE) 01/29/20 04:50 Urine Urobilinogen Normal (NORMAL) 01/29/20 04:50 Ur Leukocyte Esterase Negative (NEGATIVE) 01/29/20 04:50 Urine RBC None seen /HPF (0-3) 01/29/20 04:50 Urine WBC None seen /HPF (0-5) 01/29/20 04:50 Ur Squamous Epith Cells Rare /HPF (NEGATIVE) 01/29/20 04:50 Urine Bacteria Negative /HPF (NEGATIVE) 01/29/20 04:50 Ur Culture Indicated? No/not indicated 01/29/20 04:50 Blood Type A NEGATIVE 01/28/20 01:35 Antibody Screen Negative 01/28/20 01:35 - Plan (1) Pneumonia due to 2019 novel coronavirus Status: Acute Plan: NORMAL SALINE AT KVO, ALBUMIN 25% IV DAILY, PROCALAMINE AT 40 ML/HR, AZITHROMYCIN 500MG IV DAILY, REMDESIVIR 100MG IV DAILY, SOLU-MEDROL 125MG IV Q8H, DUONEBS QID, PULMICORT NEBS BID, MUCOMYST IN NEB [place], LOVENOX 30MG SC BID, THE POTASSIUM AND MAGNESIUM PROTOCOLS, AND HOME MEDICATIONS WERE RESUMED. WE WILL ORDER CONVALESCENT PLASMA TO BE TRANSFUSED WHEN IT IS AVAILABLE. (2) Hypoxia Status: Acute (3) Acute hypokalemia Status: Acute (4) Lobar pneumonia Status: Acute
[2020-02-04] MEDS: MILK OF MAGNESIA PO SCH ×2 (12:39→23:31)
[2020-02-04] MEDS: COLACE CAP 100 MG PO SCH (21:20)
[2020-02-04] MEDS: PROCALAMINE 3 % 1,000 ML IV SCH (23:39)
[2020-02-05 05:16] LABS: ABG BASE EXCESS 17.7 mmol/L (-2.0-2.0)
[2020-02-05 05:17] LABS: ABG ALLEN TEST POS; ABG HCO3 43.7 mmol/L (22-26)
[2020-02-05 06:04] LABS: BASOPHILS % (AUTO) 0.1 % (0.2-1.0); EOSINOPHILS % (AUTO) 0.5 % (0.9-2.9); HEMATOCRIT 28.1 % (36.0-47.0); HEMOGLOBIN 9.5 g/dL (12.0-16.0); LYMPHOCYTES # (AUTO) 0.2 X10^3/uL (1.3-2.9); MEAN CORPUSCULAR HEMOGLOBIN 28.7 pg (27.0-34.0); MEAN CORPUSCULAR HGB CONC 33.9 g/dL (33.0-35.0); MEAN CORPUSCULAR VOLUME 84.8 fL (80.0-100.0); MEAN PLATELET VOLUME 7.7 fL (7.4-11.0); MONOCYTES # (AUTO) 0.2 x10^3/uL (0.3-0.8); MONOCYTES % (AUTO) 2.6 % (0.0-13.0); NEUTROPHILS # (AUTO) 7.4 x10^3/uL (2.2-4.8); NEUTROPHILS % (AUTO) 94.8 % (42.0-75.0); PLATELET COUNT 241 X10^3/uL (150.0-450.0); RED BLOOD COUNT 3.32 X10^6/uL (3.5-5.4); RED CELL DISTRIBUTION WIDTH 13.6 % (11.6-16.5); WHITE BLOOD COUNT 7.8 X10^3/uL (3.6-10.0)
--- NOTE | 2020-02-05 06:05 | RAD ---
HISTORYShortness of breathSTUDYChest AP [id number] heart is mildly enlarged. No definite congestive heart failure is noted. There has been improvement in the bilateral interstitial and superimposed ground-glass infiltrates when compared with the prior examination. Significant infiltrates, however, remain. No pleural effusions are identified. Bony thorax is unremarkable.IMPRESSIONImproving but not resolved bilateral infiltratesNo change mild cardiomegaly without congestive heart failureElectronically signed by: RACHNA GAGE (Feb 05, 2020 06:04:13)
[2020-02-05] MEDS: SOLU-Medrol 125 MG VIAL IVP SCH ×3 (06:08→21:37)
[2020-02-05] MEDS: XANAX PO SCH ×3 (06:09→21:37)
[2020-02-05] MEDS: TYLENOL 325 MG TAB PO PRN ×2 (06:17→23:20)
[2020-02-05 06:23] LABS: ALANINE AMINOTRANSFERASE 25 Units/L (12-78); ALKALINE PHOSPHATASE 70 Units/L (46-116); ASPARTATE AMINO TRANSFERASE 24 Units/L (15-37); BLOOD UREA NITROGEN 24 mg/dL (7-18); CALCIUM 7.7 mg/dL (8.5-10.1); CARBON DIOXIDE 39.3 mmol/L (21-32); CHLORIDE 95 mmol/L (98-107); COR CA(FOR HYPOALB) 8.5 mg/dL (8.5-10.1); COR NA(FOR HYPERGLY) 140 mmol/L (136-145); CREATININE 0.88 mg/dL (0.55-1.02); SODIUM 137 mmol/L (136-145); TOTAL PROTEIN 5.5 g/dL (6.4-8.2); eGFR NON BLACK RACES > 60 (>60)
[2020-02-05 07:42] LABS: BAND NEUTROPHILS % 2 % (0-10)
[2020-02-05 07:43] LABS: PLATELET MORPHOLOGY COMMENT NORMAL (NORMAL)
[2020-02-05] MEDS: DUONEB 0.5 MG/3 MG (3 mL) NEB SCH ×5 (08:15→20:30)
[2020-02-05] MEDS: PULMICORT NEB TX 0.5 MG NEB SCH ×2 (08:15→20:30)
[2020-02-05] MEDS ORDERED: LEXAPRO ONE (09:11)
[2020-02-05] MEDS: ALBUMIN HUMAN 25%- 100 ML 100 ML IV SCH (09:30)
[2020-02-05] MEDS: PriLOSEC PO SCH (09:30)
[2020-02-05] MEDS: ARICEPT TAB 10 MG PO SCH (09:31)
[2020-02-05] MEDS: ZINC SULFATE PO SCH ×2 (09:31→21:37)
[2020-02-05] MEDS: HYDROCHLOROTHIAZIDE 25 MG TAB PO SCH (09:31)
[2020-02-05] MEDS: ZyrTEC TAB 10 MG PO SCH (09:32)
[2020-02-05] MEDS: NAMENDA TAB 10 MG PO SCH (09:32)
[2020-02-05] MEDS: ZITHROMAX INJ 500 MG VIAL 500 MG in NS 250 ML IV 250 ML IV SCH (09:32)
[2020-02-05] MEDS: LEXAPRO PO SCH (09:32)
[2020-02-05] MEDS: REMDESIVIR (INVESTIGATIONAL DRUG GS-5734) 100 MG in NS 250 ML IV 250 ML IV SCH (09:33)
[2020-02-05] MEDS: ASPIRIN EC 81 MG PO SCH (09:34)
[2020-02-05] MEDS: MILK OF MAGNESIA PO SCH ×2 (09:34→21:37)
[2020-02-05] MEDS: PLAVIX PO SCH (09:34)
[2020-02-05] MEDS: ZOFRAN INJ 4 MG VIAL IVP PRN ×2 (10:55→22:35)
[2020-02-05] MEDS: COLACE CAP 100 MG PO SCH (21:36)
[2020-02-05] MEDS: NS 1000 ML 1,000 ML IV SCH (22:34)
[2020-02-05] MEDS: PROCALAMINE 3 % 1,000 ML IV SCH (22:36)
[2020-02-05] MEDS ORDERED: BENADRYL INJ 50 MG VIAL IVP ONE (23:14)
[2020-02-05] MEDS ORDERED: BENADRYL INJ 50 MG VIAL ONE (23:17)
[2020-02-05] MEDS ORDERED: NS 500 ML IV 500 ML IV ONE (23:20)
[2020-02-06] MEDS: NS 1000 ML 1,000 ML IV SCH (01:58)
[2020-02-06] MEDS: ZOFRAN INJ 4 MG VIAL IVP PRN ×2 (04:40→12:27)
[2020-02-06] MEDS: TUSSIONEX PENNKINETIC SUSP PO PRN (04:40)
[2020-02-06 05:13] LABS: ABG BASE EXCESS 17.1 mmol/L (-2.0-2.0)
[2020-02-06 05:14] LABS: ABG HCO3 42.5 mmol/L (22-26)
[2020-02-06] MEDS: XANAX PO SCH ×3 (05:38→21:00)
[2020-02-06] MEDS: SOLU-Medrol 125 MG VIAL IVP SCH ×3 (05:39→20:59)
[2020-02-06 05:49] LABS: BASOPHILS % (AUTO) 0.1 % (0.2-1.0); HEMATOCRIT 27.5 % (36.0-47.0); HEMOGLOBIN 9.5 g/dL (12.0-16.0); LYMPHOCYTES # (AUTO) 0.2 X10^3/uL (1.3-2.9); MEAN CORPUSCULAR HEMOGLOBIN 29.4 pg (27.0-34.0); MEAN CORPUSCULAR HGB CONC 34.7 g/dL (33.0-35.0); MEAN CORPUSCULAR VOLUME 84.8 fL (80.0-100.0); MEAN PLATELET VOLUME 8.1 fL (7.4-11.0); MONOCYTES # (AUTO) 0.3 x10^3/uL (0.3-0.8); MONOCYTES % (AUTO) 5.1 % (0.0-13.0); NEUTROPHILS # (AUTO) 5.3 x10^3/uL (2.2-4.8); NEUTROPHILS % (AUTO) 91.8 % (42.0-75.0); PLATELET COUNT 248 X10^3/uL (150.0-450.0); RED BLOOD COUNT 3.24 X10^6/uL (3.5-5.4); RED CELL DISTRIBUTION WIDTH 13.9 % (11.6-16.5); WHITE BLOOD COUNT 5.8 X10^3/uL (3.6-10.0)
[2020-02-06 05:51] LABS: ABG ALLEN TEST POS
[2020-02-06 05:52] LABS: ALANINE AMINOTRANSFERASE 26 Units/L (12-78); ALBUMIN 3.2 g/dL (3.4-5.0); ALKALINE PHOSPHATASE 65 Units/L (46-116); ASPARTATE AMINO TRANSFERASE 20 Units/L (15-37); BLOOD UREA NITROGEN 23 mg/dL (7-18); CARBON DIOXIDE 38.9 mmol/L (21-32); CHLORIDE 95 mmol/L (98-107); COR CA(FOR HYPOALB) 8.6 mg/dL (8.5-10.1); COR NA(FOR HYPERGLY) 141 mmol/L (136-145); CREATININE 1.04 mg/dL (0.55-1.02); SODIUM 138 mmol/L (136-145); TOTAL PROTEIN 5.7 g/dL (6.4-8.2); eGFR NON BLACK RACES 56 (>60)
--- NOTE | 2020-02-06 06:44 | RAD ---
HISTORYSOB pneumoniaSTUDYPortable AP [id number] cardiomegaly. No change in degree or distribution of bilateral pulmonary infiltrates predominantly basal. No new consolidation, pneumothorax or pleural fluid.IMPRESSIONNo change since 1 day earlier.Electronically signed by: LALA MENEZES (Feb 06, 2020 06:43:50)
[2020-02-06 06:45] LABS: PLATELET MORPHOLOGY COMMENT NORMAL (NORMAL)
[2020-02-06] MEDS: K-DUR TAB 20 MEQ PO PRN (06:52)
[2020-02-06] MEDS: ROBITUSSIN DM PO PRN (07:47)
[2020-02-06] MEDS: DUONEB 0.5 MG/3 MG (3 mL) NEB SCH ×4 (08:45→21:05)
[2020-02-06] MEDS: PULMICORT NEB TX 0.5 MG NEB SCH ×2 (08:45→21:05)
[2020-02-06] MEDS ORDERED: LEXAPRO ONE (08:54)
[2020-02-06] MEDS: ALBUMIN HUMAN 25%- 100 ML 100 ML IV SCH (09:01)
[2020-02-06] MEDS: ASPIRIN EC 81 MG PO SCH (09:03)
[2020-02-06] MEDS: ARICEPT TAB 10 MG PO SCH (09:03)
[2020-02-06] MEDS: HYDROCHLOROTHIAZIDE 25 MG TAB PO SCH (09:10)
[2020-02-06] MEDS: ZyrTEC TAB 10 MG PO SCH (09:10)
[2020-02-06] MEDS: ZINC SULFATE PO SCH ×2 (09:11→20:50)
[2020-02-06] MEDS: ZITHROMAX INJ 500 MG VIAL 500 MG in NS 250 ML IV 250 ML IV SCH (09:12)
[2020-02-06] MEDS: PriLOSEC PO SCH (09:19)
[2020-02-06] MEDS: PLAVIX PO SCH (09:20)
[2020-02-06] MEDS: NAMENDA TAB 10 MG PO SCH (09:21)
[2020-02-06] MEDS: LEXAPRO PO SCH (09:22)
[2020-02-06] MEDS: MILK OF MAGNESIA PO SCH ×2 (09:22→20:49)
[2020-02-06] MEDS: REMDESIVIR (INVESTIGATIONAL DRUG GS-5734) 100 MG in NS 250 ML IV 250 ML IV SCH (09:56)
--- NOTE | 2020-02-06 10:23 | PCM.PROG ---
Progress Note - Progress Note for Day of Date of Exam: 02/05/20 - Subjective Subjective: IS BEING TREATED FOR PNEUMONIA DUE TO COVID-19, HYPOXIA, AND HYPOKALEMIA. TODAY, SHE IS ALERT AND ORIENTED, LYING IN BED ON MORNING ROUNDS. SHE CONTINUES WITH COMPLAINTS OF SHORTNESS OF BREATH AND WEAKNESS TODAY. SHE IS CURRENTLY UTILIZING THE BIPAP. SHE DOES REPORT SLIGHT IMPROVEMENT IN SYMPTOMS TODAY. ON EXAMINATION, HEART IS REGULAR IN RATE AND RHYTHM. BILATERAL LUNGS ARE NOTED WITH SCATTERED WHEEZING THROUGHOUT. ABDOMEN IS ROUND, SOFT, AND NON-TENDER WITH NORMAL BOWEL SOUNDS NOTED IN ALL QUADRANTS. HER VITALS THIS MORNING ARE: 98.3-53-22-93%BIPAP-147/67. LABS WERE OBTAINED. ABNORMAL LAB VALUES INCLUDE THE FOLLOWING: RBC 3.32, HGB 9.5, HCT 28.1, CHLORIDE 95, CARBON DIOXIDE 39.3, BUN 24, GLUCOSE 228, CALCIUM 7.7, CRP 15.70, TOTAL PROTEIN 5.5, ALBUMIN 3.0. AN ABG WAS OBTAINED AND REVEALED: PH 7.500, PC02 56, P02 83, HC03 43.7, 02 SAT 97, FI02 100. SHE HAS RECEIVED TWO UNITS OF CONVALESCENT PLASMA SINCE ADMISSION. SHE IS CURRENTLY RECEIVING NORMAL SALINE AT KVO, PROCALAMINE AT 40 ML/HR, ALBUMIN 25% IV DAILY, AZITHROMYCIN 500MG IV DAILY, REMDESIVIR 100MG IV DAILY, SOLU-MEDROL 125MG IV Q8H, DUONEBS QID, PULMICORT NEBS BID, MUCOMYST IN NEB [place] LOVENOX 30MG SC BID, MORPHINE 2MG IV Q6H PRN, TUSSIONEX 5ML PO Q12H PRN, ROBITUSSIN DM 10ML PO Q4H PRN, THE POTASSIUM AND MAGNESIUM PROTOCOLS, AND HOME MEDICATIONS WERE RESUMED. WE WILL CONTINUE WITH CURRENT PLAN OF CARE TODAY. OTHERWISE, WE PLAN TO FOLLOW UP WITH AM LABS, CHEST XRAY, AND ABG AND CONTINUE TO MONITOR. - Past Medical Family Social History Past Med/Fam/Surg Hx: No changes since H&P Allergies: Allergies levofloxacin Allergy (Verified 01/27/20 21:24) - Review of Systems ROS: No change since H&P - Vital Signs and I&O's Vital Signs: Temperature 98.3 F Pulse Rate [Left Brachial] 61 Pulse Rate 58 Respiratory Rate 22 Blood Pressure [Left Arm] 138/63 Blood Pressure 151/68 O2 Sat by Pulse Oximetry 92 Intake and Output: Intake & Output 02/03/20 02/04/20 02/05/20 02/06/20 11:59 11:59 11:59 11:59 Intake Total 1881 / 1881 2710 / 2710 1982 2699 / 2699 Output Total 1800 / 1800 2200 / 2200 1450 / 1450 Balance 81 / 81 510 / 510 533 / 533 2699 / 2699 - Physical Exam Oriented: Normal Eyes: Normal Ear: Normal Nose: Normal Throat: Normal Respiratory: Generalized, Diminished, Wheezes Cardiovascular: Normal : Normal Auscultation: Bowel Sounds: Normal Palpation: Normal Tenderness: Normal Skin: Normal Musculoskeletal: Normal Psychiatric: Normal Mood Description: Calm Affect: Normal Speech Pattern: Clear, Appropriate - Laboratory and Diagnostics Result Diagrams: 02/06/20 04:55 02/06/20 04:55 Labs: Laboratory WBC 5.8 X10^3/uL (3.6-10.0) 02/06/20 04:55 RBC 3.24 X10^6/uL (3.5-5.4) L 02/06/20 04:55 Hgb 9.5 g/dL (12.0-16.0) L 02/06/20 04:55 Hct 27.5 % (36.0-47.0) L 02/06/20 04:55 MCV 84.8 fL (80.0-100.0) 02/06/20 04:55 MCH 29.4 pg (27.0-34.0) 02/06/20 04:55 MCHC 34.7 g/dL (33.0-35.0) 02/06/20 04:55 RDW 13.9 % (11.6-16.5) 02/06/20 04:55 Plt Count 248 X10^3/uL (150.0-450.0) 02/06/20 04:55 Plt Count Comment Adequate (ADEQUATE) 02/06/20 04:55 MPV 8.1 fL (7.4-11.0) 02/06/20 04:55 Neut % (Auto) 91.8 % (42.0-75.0) H 02/06/20 04:55 Lymph % (Auto) 3.0 % (21.0-51.0) L 02/06/20 04:55 [place] % (Auto) 5.1 % (0.0-13.0) 02/06/20 04:55 Eos % (Auto) 0.0 % (0.9-2.9) L 02/06/20 04:55 Baso % (Auto) 0.1 % (0.2-1.0) L 02/06/20 04:55 Neut # (Auto) 5.3 x10^3/uL (2.2-4.8) H 02/06/20 04:55 Lymph # (Auto) 0.2 X10^3/uL (1.3-2.9) L 02/06/20 04:55 [place] # (Auto) 0.3 x10^3/uL (0.3-0.8) 02/06/20 04:55 Eos # (Auto) 0.0 x10^3/uL (0.0-0.2) 02/06/20 04:55 Baso # (Auto) 0.0 X10^3/uL (0.0-0.1) 02/06/20 04:55 Absolute Nucleated RBC 0.0 /100WBC 02/06/20 04:55 Total Counted 100 02/06/20 04:55 Neutrophils % (Manual) 90 % (39-76) H 02/06/20 04:55 Band Neutrophils % 2 % (0-10) 02/05/20 04:11 Lymphocytes % (Manual) 4 % (13-43) L 02/06/20 04:55 Monocytes % (Manual) 6 % (4-9) 02/06/20 04:55 Eosinophils % (Manual) 3 % (0-6) 02/05/20 04:11 Plt Morphology Comment Normal (NORMAL) 02/06/20 04:55 RBC Morphology Normal (NORMAL) 02/06/20 04:55 Hypochromasia Slight A 02/04/20 04:11 Anisocytosis Slight A 02/04/20 04:11 PT 13.5 SECONDS (11.8-14.3) 02/02/20 01:20 INR Target Range - 02/02/20 01:20 INR 1.06 (0.8-1.3) 02/02/20 01:20 Sample Site Rr 02/06/20 05:05 ABG pH 7.520 (7.35-7.45) H 02/06/20 05:05 ABG pCO2 52.0 mmHg (35.0-45.0) H* 02/06/20 05:05 ABG pO2 55.0 mmHg (80.0-100.0) L 02/06/20 05:05 ABG HCO3 42.5 mmol/L (22-26) H* 02/06/20 05:05 ABG O2 Saturation 91.0 % (90-100) 02/06/20 05:05 ABG Base Excess 17.1 mmol/L (-2.0-2.0) H 02/06/20 05:05 Dominik Test Pos 02/06/20 05:05 A-a Gradient 372.0 mmHg 02/06/20 05:05 FiO2 69.0 02/06/20 05:05 Blood Gas Comments Wilian well ae 02/06/20 05:05 Sodium 138 mmol/L (136-145) 02/06/20 04:55 Corrected Sodium 141 mmol/L (136-145) 02/06/20 04:55 Potassium 3.1 mmol/L (3.5-5.1) L 02/06/20 04:55 Chloride 95 mmol/L (98-107) L 02/06/20 04:55 Carbon Dioxide 38.9 mmol/L (21-32) H 02/06/20 04:55 BUN 23 mg/dL (7-18) H 02/06/20 04:55 Creatinine 1.04 mg/dL (0.55-1.02) H 02/06/20 04:55 Est GFR (MDRD) Af Amer > 60 (>60) 02/06/20 04:55 Est GFR (MDRD) Non-Af 56 (>60) L 02/06/20 04:55 Glucose 218 mg/dL (65-99) H 02/06/20 04:55 Calcium 8.0 mg/dL (8.5-10.1) L 02/06/20 04:55 Corrected Calcium 8.6 mg/dL (8.5-10.1) 02/06/20 04:55 Magnesium 2.5 mg/dL (1.7-2.9) 02/03/20 03:54 Ferritin 252 ng/mL (8-252) 02/06/20 04:55 Total Bilirubin 0.80 mg/dL (0.2-1.0) 02/06/20 04:55 AST 20 Units/L (15-37) 02/06/20 04:55 ALT 26 Units/L (12-78) 02/06/20 04:55 Alkaline Phosphatase 65 Units/L (46-116) 02/06/20 04:55 Troponin I < 0.02 ng/mL (0-1.5) 01/28/20 01:35 C-Reactive Protein 6.80 mg/L (0-3.0) H 02/06/20 04:55 Total Protein 5.7 g/dL (6.4-8.2) L 02/06/20 04:55 Albumin 3.2 g/dL (3.4-5.0) L 02/06/20 04:55 Globulin 2.5 g/dL (2.5-4.5) 02/06/20 04:55 Albumin/Globulin Ratio 1.3 Ratio (1.1-2.1) 02/06/20 04:55 Specimen Type Catherized urine 01/29/20 04:50 Urine Color Yellow (YELLOW) 01/29/20 04:50 Urine Appearance Clear (CLEAR) 01/29/20 04:50 Urine pH 6.0 (5.0 - 8.0) 01/29/20 04:50 Ur Specific [place] 1.020 (1.000-1.030) 01/29/20 04:50 Urine Protein 1+ (NEGATIVE) 01/29/20 04:50 Urine Glucose (UA) 1+ (NEGATIVE) 01/29/20 04:50 Urine Ketones 1+ (NEGATIVE) 01/29/20 04:50 Urine Occult Blood Negative (NEGATIVE) 01/29/20 04:50 Urine Nitrite Negative (NEGATIVE) 01/29/20 04:50 Urine Bilirubin Negative (NEGATIVE) 01/29/20 04:50 Urine Urobilinogen Normal (NORMAL) 01/29/20 04:50 Ur Leukocyte Esterase Negative (NEGATIVE) 01/29/20 04:50 Urine RBC None seen /HPF (0-3) 01/29/20 04:50 Urine WBC None seen /HPF (0-5) 01/29/20 04:50 Ur Squamous Epith Cells Rare /HPF (NEGATIVE) 01/29/20 04:50 Urine Bacteria Negative /HPF (NEGATIVE) 01/29/20 04:50 Ur Culture Indicated? No/not indicated 01/29/20 04:50 Blood Type A NEGATIVE 01/28/20 01:35 Antibody Screen Negative 01/28/20 01:35 - Plan (1) Pneumonia due to 2019 novel coronavirus Status: Acute Plan: NORMAL SALINE AT KVO, ALBUMIN 25% IV DAILY, PROCALAMINE AT 40 ML/HR, AZITHROMYCIN 500MG IV DAILY, REMDESIVIR 100MG IV DAILY, SOLU-MEDROL 125MG IV Q8H, DUONEBS QID, PULMICORT NEBS BID, MUCOMYST IN NEB [place], LOVENOX 30MG SC BID, THE POTASSIUM AND MAGNESIUM PROTOCOLS, AND HOME MEDICATIONS WERE RESUMED. WE WILL ORDER CONVALESCENT PLASMA TO BE TRANSFUSED WHEN IT IS AVAILABLE. (2) Hypoxia Status: Acute (3) Acute hypokalemia Status: Acute
--- NOTE | 2020-02-06 10:29 | PCM.PROG ---
Progress Note - Progress Note for Day of Date of Exam: 02/06/20 - Subjective Subjective: IS BEING TREATED FOR PNEUMONIA DUE TO COVID-19, HYPOXIA, AND HYPOKALEMIA. TODAY, SHE IS ALERT AND ORIENTED, LYING IN BED ON MORNING ROUNDS. SHE CONTINUES WITH COMPLAINTS OF SHORTNESS OF BREATH AND WEAKNESS TODAY. SHE IS CURRENTLY ON HEATED HIGH FLOW OXYGEN. SHE DENIES SIGNIFICANT IMPROVEMENT OR CHANGE SINCE YESTERDAY. ON EXAMINATION, HEART IS REGULAR IN RATE AND RHYTHM. BILATERAL LUNGS ARE NOTED WITH SCATTERED WHEEZING THROUGHOUT. ABDOMEN IS ROUND, SOFT, AND NON-TENDER WITH NORMAL BOWEL SOUNDS NOTED IN ALL QUADRANTS. HER VITALS THIS MORNING ARE: 98.3-61-28-89%HHF-138/63. LABS WERE OBTAINED. ABNORMAL LAB VALUES INCLUDE THE FOLLOWING: RBC 3.24, HGB 9.5, HCT 27.5, POTASSIUM 3.1, CHLORIDE 95, CARBON DIOXIDE 38.9, BUN 23, CREATININE 1.04, GLUCOSE 218, CALCIUM 8.0, CRP 6.80, TOTAL PROTEIN 5.7, ALBUMIN 3.2. AN ABG WAS OBTAINED AND REVEALED: PH 7.520, PC02 52, P02 55, HC03 42.5, 02 SAT 91, BASE EXCESS 17.1, FI02 69. SHE HAS RECEIVED TWO UNITS OF CONVALESCENT PLASMA SINCE ADMISSION. SHE IS CURRENTLY RECEIVING NORMAL SALINE AT KVO, PROCALAMINE AT 40 ML/HR, ALBUMIN 25% IV DAILY, AZITHROMYCIN 500MG IV DAILY, REMDESIVIR 100MG IV DAILY, SOLU-MEDROL 125MG IV Q8H, DUONEBS QID, PULMICORT NEBS BID, MUCOMYST IN NEB [place] LOVENOX 30MG SC BID, MORPHINE 2MG IV Q6H PRN, TUSSIONEX 5ML PO Q12H PRN, ROBITUSSIN DM 10ML PO Q4H PRN, THE POTASSIUM AND MAGNESIUM PROTOCOLS, AND HOME MEDICATIONS WERE RESUMED. WE WILL MAKE ROBITUSSIN AND TUSSIONEX SCHEDULED TODAY. OTHERWISE, WE PLAN TO FOLLOW UP WITH AM LABS, CHEST XRAY, AND ABG AND CONTINUE TO MONITOR. - Past Medical Family Social History Past Med/Fam/Surg Hx: No changes since H&P Allergies: Allergies levofloxacin Allergy (Verified 01/27/20 21:24) - Review of Systems ROS: No change since H&P - Vital Signs and I&O's Vital Signs: Temperature 98.3 F Pulse Rate [Left Brachial] 61 Pulse Rate 58 Respiratory Rate 22 Blood Pressure [Left Arm] 138/63 Blood Pressure 151/68 O2 Sat by Pulse Oximetry 92 Intake and Output: Intake & Output 02/03/20 02/04/20 02/05/20 02/06/20 11:59 11:59 11:59 11:59 Intake Total 1881 / 1881 2710 / 2710 1982 2699 / 2699 Output Total 1800 / 1800 2200 / 2200 1450 / 1450 Balance 81 / 81 510 / 510 533 / 533 6489 / 269 - Physical Exam Oriented: Normal Eyes: Normal Ear: Normal Nose: Normal Throat: Normal Respiratory: Generalized, Diminished, Wheezes Cardiovascular: Normal : Normal Auscultation: Bowel Sounds: Normal Tenderness: Normal Skin: Normal Musculoskeletal: Normal Psychiatric: Normal Mood Description: Calm Affect: Normal Speech Pattern: Clear, Appropriate - Laboratory and Diagnostics Result Diagrams: 02/06/20 04:55 02/06/20 04:55 Labs: Laboratory WBC 5.8 X10^3/uL (3.6-10.0) 02/06/20 04:55 RBC 3.24 X10^6/uL (3.5-5.4) L 02/06/20 04:55 Hgb 9.5 g/dL (12.0-16.0) L 02/06/20 04:55 Hct 27.5 % (36.0-47.0) L 02/06/20 04:55 MCV 84.8 fL (80.0-100.0) 02/06/20 04:55 MCH 29.4 pg (27.0-34.0) 02/06/20 04:55 MCHC 34.7 g/dL (33.0-35.0) 02/06/20 04:55 RDW 13.9 % (11.6-16.5) 02/06/20 04:55 Plt Count 248 X10^3/uL (150.0-450.0) 02/06/20 04:55 Plt Count Comment Adequate (ADEQUATE) 02/06/20 04:55 MPV 8.1 fL (7.4-11.0) 02/06/20 04:55 Neut % (Auto) 91.8 % (42.0-75.0) H 02/06/20 04:55 Lymph % (Auto) 3.0 % (21.0-51.0) L 02/06/20 04:55 [place] % (Auto) 5.1 % (0.0-13.0) 02/06/20 04:55 Eos % (Auto) 0.0 % (0.9-2.9) L 02/06/20 04:55 Baso % (Auto) 0.1 % (0.2-1.0) L 02/06/20 04:55 Neut # (Auto) 5.3 x10^3/uL (2.2-4.8) H 02/06/20 04:55 Lymph # (Auto) 0.2 X10^3/uL (1.3-2.9) L 02/06/20 04:55 [place] # (Auto) 0.3 x10^3/uL (0.3-0.8) 02/06/20 04:55 Eos # (Auto) 0.0 x10^3/uL (0.0-0.2) 02/06/20 04:55 Baso # (Auto) 0.0 X10^3/uL (0.0-0.1) 02/06/20 04:55 Absolute Nucleated RBC 0.0 /100WBC 02/06/20 04:55 Total Counted 100 02/06/20 04:55 Neutrophils % (Manual) 90 % (39-76) H 02/06/20 04:55 Band Neutrophils % 2 % (0-10) 02/05/20 04:11 Lymphocytes % (Manual) 4 % (13-43) L 02/06/20 04:55 Monocytes % (Manual) 6 % (4-9) 02/06/20 04:55 Eosinophils % (Manual) 3 % (0-6) 02/05/20 04:11 Plt Morphology Comment Normal (NORMAL) 02/06/20 04:55 RBC Morphology Normal (NORMAL) 02/06/20 04:55 Hypochromasia Slight A 02/04/20 04:11 Anisocytosis Slight A 02/04/20 04:11 PT 13.5 SECONDS (11.8-14.3) 02/02/20 01:20 INR Target Range - 02/02/20 01:20 INR 1.06 (0.8-1.3) 02/02/20 01:20 Sample Site Rr 02/06/20 05:05 ABG pH 7.520 (7.35-7.45) H 02/06/20 05:05 ABG pCO2 52.0 mmHg (35.0-45.0) H* 02/06/20 05:05 ABG pO2 55.0 mmHg (80.0-100.0) L 02/06/20 05:05 ABG HCO3 42.5 mmol/L (22-26) H* 02/06/20 05:05 ABG O2 Saturation 91.0 % (90-100) 02/06/20 05:05 ABG Base Excess 17.1 mmol/L (-2.0-2.0) H 02/06/20 05:05 Dominik Test Pos 02/06/20 05:05 A-a Gradient 372.0 mmHg 02/06/20 05:05 FiO2 69.0 02/06/20 05:05 Blood Gas Comments Wilian well ae 02/06/20 05:05 Sodium 138 mmol/L (136-145) 02/06/20 04:55 Corrected Sodium 141 mmol/L (136-145) 02/06/20 04:55 Potassium 3.1 mmol/L (3.5-5.1) L 02/06/20 04:55 Chloride 95 mmol/L (98-107) L 02/06/20 04:55 Carbon Dioxide 38.9 mmol/L (21-32) H 02/06/20 04:55 BUN 23 mg/dL (7-18) H 02/06/20 04:55 Creatinine 1.04 mg/dL (0.55-1.02) H 02/06/20 04:55 Est GFR (MDRD) Af Amer > 60 (>60) 02/06/20 04:55 Est GFR (MDRD) Non-Af 56 (>60) L 02/06/20 04:55 Glucose 218 mg/dL (65-99) H 02/06/20 04:55 Calcium 8.0 mg/dL (8.5-10.1) L 02/06/20 04:55 Corrected Calcium 8.6 mg/dL (8.5-10.1) 02/06/20 04:55 Magnesium 2.5 mg/dL (1.7-2.9) 02/03/20 03:54 Ferritin 252 ng/mL (8-252) 02/06/20 04:55 Total Bilirubin 0.80 mg/dL (0.2-1.0) 02/06/20 04:55 AST 20 Units/L (15-37) 02/06/20 04:55 ALT 26 Units/L (12-78) 02/06/20 04:55 Alkaline Phosphatase 65 Units/L (46-116) 02/06/20 04:55 Troponin I < 0.02 ng/mL (0-1.5) 01/28/20 01:35 C-Reactive Protein 6.80 mg/L (0-3.0) H 02/06/20 04:55 Total Protein 5.7 g/dL (6.4-8.2) L 02/06/20 04:55 Albumin 3.2 g/dL (3.4-5.0) L 02/06/20 04:55 Globulin 2.5 g/dL (2.5-4.5) 02/06/20 04:55 Albumin/Globulin Ratio 1.3 Ratio (1.1-2.1) 02/06/20 04:55 Specimen Type Catherized urine 01/29/20 04:50 Urine Color Yellow (YELLOW) 01/29/20 04:50 Urine Appearance Clear (CLEAR) 01/29/20 04:50 Urine pH 6.0 (5.0 - 8.0) 01/29/20 04:50 Ur Specific [place] 1.020 (1.000-1.030) 01/29/20 04:50 Urine Protein 1+ (NEGATIVE) 01/29/20 04:50 Urine Glucose (UA) 1+ (NEGATIVE) 01/29/20 04:50 Urine Ketones 1+ (NEGATIVE) 01/29/20 04:50 Urine Occult Blood Negative (NEGATIVE) 01/29/20 04:50 Urine Nitrite Negative (NEGATIVE) 01/29/20 04:50 Urine Bilirubin Negative (NEGATIVE) 01/29/20 04:50 Urine Urobilinogen Normal (NORMAL) 01/29/20 04:50 Ur Leukocyte Esterase Negative (NEGATIVE) 01/29/20 04:50 Urine RBC None seen /HPF (0-3) 01/29/20 04:50 Urine WBC None seen /HPF (0-5) 01/29/20 04:50 Ur Squamous Epith Cells Rare /HPF (NEGATIVE) 01/29/20 04:50 Urine Bacteria Negative /HPF (NEGATIVE) 01/29/20 04:50 Ur Culture Indicated? No/not indicated 01/29/20 04:50 Blood Type A NEGATIVE 01/28/20 01:35 Antibody Screen Negative 01/28/20 01:35 - Plan (1) Pneumonia due to 2019 novel coronavirus Status: Acute Plan: NORMAL SALINE AT KVO, ALBUMIN 25% IV DAILY, PROCALAMINE AT 40 ML/HR, AZITHROMYCIN 500MG IV DAILY, REMDESIVIR 100MG IV DAILY, SOLU-MEDROL 125MG IV Q8H, DUONEBS QID, PULMICORT NEBS BID, MUCOMYST IN NEB [place], LOVENOX 30MG SC BID, THE POTASSIUM AND MAGNESIUM PROTOCOLS, AND HOME MEDICATIONS WERE RESUMED. WE WILL ORDER CONVALESCENT PLASMA TO BE TRANSFUSED WHEN IT IS AVAILABLE. (2) Hypoxia Status: Acute (3) Acute hypokalemia Status: Acute
[2020-02-06] MEDS: TUSSIONEX PENNKINETIC SUSP PO SCH ×2 (11:12→21:00)
[2020-02-06] MEDS: ROBITUSSIN DM PO SCH ×3 (13:37→20:49)
[2020-02-06] MEDS: K-RIDER 10 MEQ/NS 100 ML 10 MEQ/100 ML BAG IV PRN ×4 (16:31→23:59)
[2020-02-06] MEDS: PROCALAMINE 3 % 1,000 ML IV SCH (20:48)
[2020-02-06] MEDS: COLACE CAP 100 MG PO SCH (20:49)
[2020-02-07] MEDS: NS 1000 ML 1,000 ML IV SCH ×2 (01:56→23:50)
[2020-02-07 04:11] LABS: ABG BASE EXCESS 18.8 mmol/L (-2.0-2.0)
[2020-02-07 04:13] LABS: ABG ALLEN TEST POS; ABG HCO3 44.7 mmol/L (22-26)
[2020-02-07] MEDS: XANAX PO SCH ×3 (05:45→21:02)
[2020-02-07] MEDS: SOLU-Medrol 125 MG VIAL IVP SCH ×3 (05:45→21:02)
[2020-02-07] MEDS: ZOFRAN INJ 4 MG VIAL IVP PRN ×2 (05:45→23:17)
[2020-02-07] MEDS ORDERED: DUONEB 0.5 MG/3 MG (3 mL) NEB ONE (06:26)
[2020-02-07 06:28] LABS: BASOPHILS % (AUTO) 0.1 % (0.2-1.0); HEMATOCRIT 26.9 % (36.0-47.0); HEMOGLOBIN 9.4 g/dL (12.0-16.0); LYMPHOCYTES # (AUTO) 0.2 X10^3/uL (1.3-2.9); LYMPHOCYTES % (AUTO) 3.4 % (21.0-51.0); MEAN CORPUSCULAR HEMOGLOBIN 29.6 pg (27.0-34.0); MEAN CORPUSCULAR VOLUME 84.6 fL (80.0-100.0); MEAN PLATELET VOLUME 7.9 fL (7.4-11.0); MONOCYTES # (AUTO) 0.3 x10^3/uL (0.3-0.8); MONOCYTES % (AUTO) 4.5 % (0.0-13.0); NEUTROPHILS # (AUTO) 6.2 x10^3/uL (2.2-4.8); PLATELET COUNT 226 X10^3/uL (150.0-450.0); RED BLOOD COUNT 3.18 X10^6/uL (3.5-5.4); RED CELL DISTRIBUTION WIDTH 13.6 % (11.6-16.5); WHITE BLOOD COUNT 6.7 X10^3/uL (3.6-10.0)
[2020-02-07 06:38] LABS: ALANINE AMINOTRANSFERASE 26 Units/L (12-78); ALBUMIN 3.2 g/dL (3.4-5.0); ALKALINE PHOSPHATASE 59 Units/L (46-116); ASPARTATE AMINO TRANSFERASE 21 Units/L (15-37); BLOOD UREA NITROGEN 24 mg/dL (7-18); CALCIUM 7.8 mg/dL (8.5-10.1); CARBON DIOXIDE 38.4 mmol/L (21-32); CHLORIDE 94 mmol/L (98-107); COR CA(FOR HYPOALB) 8.4 mg/dL (8.5-10.1); COR NA(FOR HYPERGLY) 138 mmol/L (136-145); CREATININE 0.87 mg/dL (0.55-1.02); SODIUM 135 mmol/L (136-145); TOTAL PROTEIN 5.4 g/dL (6.4-8.2); eGFR NON BLACK RACES > 60 (>60)
--- NOTE | 2020-02-07 07:06 | RAD ---
HISTORYFollow-up COVID-19STUDYChest AP [id number]/22/2020FINDINGSPatient is rotated to the left. The heart remains enlarged. Consi dering a difference in film technique bilateral interstitial patchy and confluent ground-glass infilt rates are unchanged. No pleural effusions are identified. Bony thorax is unremarkable.IMPRESSIONNo si gnificant change from the prior examinationElectronically signed by: RACHNA GAGE (Feb 07, 2020 07:0 5:59)
[2020-02-07 07:18] LABS: BAND NEUTROPHILS % 2 % (0-10); PLATELET MORPHOLOGY COMMENT NORMAL (NORMAL)
[2020-02-07] MEDS ORDERED: LEXAPRO ONE (08:07)
[2020-02-07] MEDS: ROBITUSSIN DM PO SCH ×4 (08:14→21:00)
[2020-02-07] MEDS: ZyrTEC TAB 10 MG PO SCH (08:14)
[2020-02-07] MEDS: ZINC SULFATE PO SCH ×2 (08:14→21:01)
[2020-02-07] MEDS: ASPIRIN EC 81 MG PO SCH (08:14)
[2020-02-07] MEDS: HYDROCHLOROTHIAZIDE 25 MG TAB PO SCH (08:15)
[2020-02-07] MEDS: NAMENDA TAB 10 MG PO SCH (08:16)
[2020-02-07] MEDS: PriLOSEC PO SCH (08:16)
[2020-02-07] MEDS: LEXAPRO PO SCH (08:16)
[2020-02-07] MEDS: PLAVIX PO SCH (08:17)
[2020-02-07] MEDS: ARICEPT TAB 10 MG PO SCH (08:18)
[2020-02-07] MEDS: ALBUMIN HUMAN 25%- 100 ML 100 ML IV SCH (08:19)
[2020-02-07] MEDS: MILK OF MAGNESIA PO SCH ×2 (08:41→22:19)
[2020-02-07] MEDS: DUONEB 0.5 MG/3 MG (3 mL) NEB SCH ×4 (08:50→20:55)
[2020-02-07] MEDS: PULMICORT NEB TX 0.5 MG NEB SCH ×2 (08:50→20:55)
[2020-02-07] MEDS: TUSSIONEX PENNKINETIC SUSP PO SCH ×2 (09:12→21:01)
[2020-02-07] MEDS: REMDESIVIR (INVESTIGATIONAL DRUG GS-5734) 100 MG in NS 250 ML IV 250 ML IV SCH (09:12)
[2020-02-07] MEDS ORDERED: PROCALAMINE 3 % 1,000 ML with MVI INJ (ADULT) 10 ML IV SCH ×2 (10:00)
[2020-02-07] MEDS: ZITHROMAX INJ 500 MG VIAL 500 MG in NS 250 ML IV 250 ML IV SCH (11:40)
[2020-02-07] MEDS: K-DUR TAB 20 MEQ PO PRN ×2 (12:25→16:21)
[2020-02-07] MEDS ORDERED: SOLU-Medrol 125 MG VIAL ONE (19:57)
[2020-02-07] MEDS: COLACE CAP 100 MG PO SCH (21:00)
[2020-02-08] MEDS: NS 1000 ML 1,000 ML IV SCH (01:05)
[2020-02-08 05:25] LABS: ABG BASE EXCESS 17.7 mmol/L (-2.0-2.0)
[2020-02-08 05:27] LABS: ABG ALLEN TEST POS; ABG HCO3 42.1 mmol/L (22-26)
[2020-02-08] MEDS: XANAX PO SCH ×3 (05:48→21:50)
[2020-02-08] MEDS: SOLU-Medrol 125 MG VIAL IVP SCH ×3 (05:48→21:50)
[2020-02-08 06:33] LABS: BASOPHILS % (AUTO) 0.1 % (0.2-1.0); HEMATOCRIT 27.8 % (36.0-47.0); HEMOGLOBIN 9.6 g/dL (12.0-16.0); LYMPHOCYTES # (AUTO) 0.2 X10^3/uL (1.3-2.9); MEAN CORPUSCULAR HEMOGLOBIN 29.3 pg (27.0-34.0); MEAN CORPUSCULAR HGB CONC 34.6 g/dL (33.0-35.0); MEAN CORPUSCULAR VOLUME 84.6 fL (80.0-100.0); MEAN PLATELET VOLUME 7.7 fL (7.4-11.0); MONOCYTES # (AUTO) 0.2 x10^3/uL (0.3-0.8); NEUTROPHILS # (AUTO) 7.7 x10^3/uL (2.2-4.8); NEUTROPHILS % (AUTO) 93.9 % (42.0-75.0); PLATELET COUNT 230 X10^3/uL (150.0-450.0); RED BLOOD COUNT 3.29 X10^6/uL (3.5-5.4); RED CELL DISTRIBUTION WIDTH 13.8 % (11.6-16.5); WHITE BLOOD COUNT 8.2 X10^3/uL (3.6-10.0)
[2020-02-08 06:52] LABS: ALANINE AMINOTRANSFERASE 25 Units/L (12-78); ALBUMIN 3.3 g/dL (3.4-5.0); ALKALINE PHOSPHATASE 60 Units/L (46-116); ASPARTATE AMINO TRANSFERASE 20 Units/L (15-37); BLOOD UREA NITROGEN 24 mg/dL (7-18); CALCIUM 7.8 mg/dL (8.5-10.1); CARBON DIOXIDE 37.9 mmol/L (21-32); CHLORIDE 95 mmol/L (98-107); COR CA(FOR HYPOALB) 8.4 mg/dL (8.5-10.1); COR NA(FOR HYPERGLY) 139 mmol/L (136-145); CREATININE 0.92 mg/dL (0.55-1.02); SODIUM 136 mmol/L (136-145); TOTAL PROTEIN 5.3 g/dL (6.4-8.2); eGFR NON BLACK RACES > 60 (>60)
--- NOTE | 2020-02-08 07:56 | RAD ---
HISTORYShort of breathSTUDYCHEST, 1 VIEWCOMPARISONPortable chest February 07, 2020.FINDINGSThe trachea is midline. The cardiac silhouette is unremarkable . The bibasilar peripheral infiltrates left greater than right are unchanged from yesterday's exam. There are no effusions. There is no pneumothorax.. The bony thorax is unremarkable.IMPRESSIONNo change in the bilateral left greater than right mid and lower lung field peripheral interstitial infiltrates consistent with COVID-19 pneumonia.Electronically signed by: RICHELLE BRISCOE (Feb 08, 2020 07:55:45)
[2020-02-08 08:01] LABS: PLATELET MORPHOLOGY COMMENT NORMAL (NORMAL)
[2020-02-08] MEDS ORDERED: LEXAPRO ONE (08:30)
--- NOTE | 2020-02-08 08:43 | PCM.PROG ---
Progress Note - Progress Note for Day of Date of Exam: 02/07/20 - Subjective Subjective: IS BEING TREATED FOR PNEUMONIA DUE TO COVID-19, HYPOXIA, AND HYPOKALEMIA. TODAY, SHE IS ALERT AND ORIENTED, LYING IN BED ON MORNING ROUNDS. SHE CONTINUES WITH COMPLAINTS OF SHORTNESS OF BREATH AND WEAKNESS TODAY. SHE IS CURRENTLY ON HEATED HIGH FLOW OXYGEN. SHE REPORTS SLIGHT INCREASE IN SHORTNESS OF BREATH TODAY. ON EXAMINATION, HEART IS REGULAR IN RATE AND RHYTHM. BILATERAL LUNGS ARE NOTED WITH SCATTERED WHEEZING THROUGHOUT. ABDOMEN IS ROUND, SOFT, AND NON-TENDER WITH NORMAL BOWEL SOUNDS NOTED IN ALL QUADRANTS. HER VITALS THIS MORNING ARE: 98.1-62-26-94%HHF-139/65. LABS WERE OBTAINED. ABNORMAL LAB VALUES INCLUDE THE FOLLOWING: RBC 3.29, HGB 9.6, HCT 27.8, POTASSIUM 3.4, CH LORIDE 95, CARBON DIOXIDE 37.9, BUN 24, GLUCOSE 231, CALCIUM 7.8, TOTAL PROTEIN 5.3, ALBUMIN 3.3. AN ABG WAS OBTAINED AND REVEALED: PH 7.510, PC02 56, P02 47, HC03 44.7, 02 SAT 87, BASE EXCESS 18.8, FI02 75. SHE HAS RECEIVED TWO UNITS OF CONVALESCENT PLASMA SINCE ADMISSION. SHE WILL RECEIVE ANOTHER WHEN IT IS AVAILABLE. SHE IS CURRENTLY RECEIVING NORMAL SALINE AT KVO, PROCALAMINE AT 40 ML/HR, ALBUMIN 25% IV DAILY, AZITHROMYCIN 500MG IV DAILY, REMDESIVIR 100MG IV DAILY, SOLU-MEDROL 125MG IV Q8H, DUONEBS QID, PULMICORT NEBS BID, MUCOMYST IN NEB [place] LOVENOX 30MG SC BID, MORPHINE 2MG IV Q6H PRN, TUSSIONEX 5ML PO Q12H, ROBITUSSIN DM 10ML PO Q4H, THE POTASSIUM AND MAGNESIUM PROTOCOLS, AND HOME MEDI CATIONS WERE RESUMED. WE WILL ORDER FOR HER TO WEAR THE SMART VEST TODAY. OTHERWISE, WE PLAN TO FOLLOW UP WITH AM LABS, CHEST XRAY, AND ABG AND CONTINUE TO MONITOR. - Past Medical Family Social History Past Med/Fam/Surg Hx: No changes since H&P Allergies: Allergies levofloxacin Allergy (Verified 01/27/20 21:24) - Review of Systems ROS: No change since H&P - Vital Signs and I&O's Vital Signs: Temperature 98.1 F Pulse Rate [Left Brachial] 62 Pulse Rate 67 Respiratory Rate 26 Blood Pressure [Left Arm] 139/65 Blood Pressure 151/68 O2 Sat by Pulse Oximetry 94 Intake and Output: Intake & Output 02/05/20 02/06/20 02/07/20 02/08/20 11:59 11:59 11:59 11:59 Intake Total 1982 2699 / 2699 3259 / 3259 2371 / 2371 Output Total 1450 / 1450 Balance 533 / 533 0849 / 2699 3259 / 3259 2371 / 2371 - Physical Exam Oriented: Normal Eyes: Normal Ear: Normal Nose: Normal Throat: Normal Respiratory: Generalized, Diminished, Wheezes Cardiovascular: Normal : Normal Auscultation: Bowel Sounds: Normal Tenderness: Normal Skin: Normal Musculoskeletal: Normal Psychiatric: Normal Mood Description: Calm Affect: Normal Speech Pattern: Clear, Appropriate - Laboratory and Diagnostics Result Diagrams: 02/08/20 05:30 02/08/20 05:30 Labs: Laboratory WBC 8.2 X10^3/uL (3.6-10.0) 02/08/20 05:30 RBC 3.29 X10^6/uL (3.5-5.4) L 02/08/20 05:30 Hgb 9.6 g/dL (12.0-16.0) L 02/08/20 05:30 Hct 27.8 % (36.0-47.0) L 02/08/20 05:30 MCV 84.6 fL (80.0-100.0) 02/08/20 05:30 MCH 29.3 pg (27.0-34.0) 02/08/20 05:30 MCHC 34.6 g/dL (33.0-35.0) 02/08/20 05:30 RDW 13.8 % (11.6-16.5) 02/08/20 05:30 Plt Count 230 X10^3/uL (150.0-450.0) 02/08/20 05:30 Plt Count Comment Adequate (ADEQUATE) 02/08/20 05:30 MPV 7.7 fL (7.4-11.0) 02/08/20 05:30 Neut % (Auto) 93.9 % (42.0-75.0) H 02/08/20 05:30 Lymph % (Auto) 3.0 % (21.0-51.0) L 02/08/20 05:30 [place] % (Auto) 3.0 % (0.0-13.0) 02/08/20 05:30 Eos % (Auto) 0.0 % (0.9-2.9) L 02/08/20 05:30 Baso % (Auto) 0.1 % (0.2-1.0) L 02/08/20 05:30 Neut # (Auto) 7.7 x10^3/uL (2.2-4.8) H 02/08/20 05:30 Lymph # (Auto) 0.2 X10^3/uL (1.3-2.9) L 02/08/20 05:30 [place] # (Auto) 0.2 x10^3/uL (0.3-0.8) L 02/08/20 05:30 Eos # (Auto) 0.0 x10^3/uL (0.0-0.2) 02/08/20 05:30 Baso # (Auto) 0.0 X10^3/uL (0.0-0.1) 02/08/20 05:30 Absolute Nucleated RBC 0.1 /100WBC 02/08/20 05:30 Total Counted 100 02/08/20 05:30 Neutrophils % (Manual) 90 % (39-76) H 02/08/20 05:30 Band Neutrophils % 2 % (0-10) 02/07/20 05:15 Lymphocytes % (Manual) 5 % (13-43) L 02/08/20 05:30 Monocytes % (Manual) 5 % (4-9) 02/08/20 05:30 Eosinophils % (Manual) 3 % (0-6) 02/05/20 04:11 Plt Morphology Comment Normal (NORMAL) 02/08/20 05:30 RBC Morphology Normal (NORMAL) 02/08/20 05:30 Hypochromasia Slight A 02/04/20 04:11 Anisocytosis Slight A 02/04/20 04:11 PT 13.5 SECONDS (11.8-14.3) 02/02/20 01:20 INR Target Range - 02/02/20 01:20 INR 1.06 (0.8-1.3) 02/02/20 01:20 Sample Site Rrad 02/08/20 05:17 ABG pH 7.560 (7.35-7.45) H* 02/08/20 05:17 ABG pCO2 47.0 mmHg (35.0-45.0) H 02/08/20 05:17 ABG pO2 59.0 mmHg (80.0-100.0) L 02/08/20 05:17 ABG HCO3 42.1 mmol/L (22-26) H* 02/08/20 05:17 ABG O2 Saturation 94.0 % (90-100) 02/08/20 05:17 ABG Base Excess 17.7 mmol/L (-2.0-2.0) H 02/08/20 05:17 Dominik Test Pos 02/08/20 05:17 A-a Gradient 488.0 mmHg 02/08/20 05:17 FiO2 85.0 02/08/20 05:17 Blood Gas Comments Wilian abg well-mtf 02/08/20 05:17 Sodium 136 mmol/L (136-145) 02/08/20 05:30 Corrected Sodium 139 mmol/L (136-145) 02/08/20 05:30 Potassium 3.4 mmol/L (3.5-5.1) L 02/08/20 05:30 Chloride 95 mmol/L (98-107) L 02/08/20 05:30 Carbon Dioxide 37.9 mmol/L (21-32) H 02/08/20 05:30 BUN 24 mg/dL (7-18) H 02/08/20 05:30 Creatinine 0.92 mg/dL (0.55-1.02) 02/08/20 05:30 Est GFR (MDRD) Af Amer > 60 (>60) 02/08/20 05:30 Est GFR (MDRD) Non-Af > 60 (>60) 02/08/20 05:30 Glucose 231 mg/dL (65-99) H 02/08/20 05:30 Calcium 7.8 mg/dL (8.5-10.1) L 02/08/20 05:30 Corrected Calcium 8.4 mg/dL (8.5-10.1) L 02/08/20 05:30 Magnesium 2.0 mg/dL (1.7-2.9) 02/07/20 05:15 Ferritin 218 ng/mL (8-252) 02/08/20 05:30 Total Bilirubin 0.90 mg/dL (0.2-1.0) 02/08/20 05:30 AST 20 Units/L (15-37) 02/08/20 05:30 ALT 25 Units/L (12-78) 02/08/20 05:30 Alkaline Phosphatase 60 Units/L (46-116) 02/08/20 05:30 Troponin I < 0.02 ng/mL (0-1.5) 01/28/20 01:35 C-Reactive Protein 1.40 mg/L (0-3.0) 02/08/20 05:30 Total Protein 5.3 g/dL (6.4-8.2) L 02/08/20 05:30 Albumin 3.3 g/dL (3.4-5.0) L 02/08/20 05:30 Globulin 2.0 g/dL (2.5-4.5) L 02/08/20 05:30 Albumin/Globulin Ratio 1.7 Ratio (1.1-2.1) 02/08/20 05:30 Specimen Type Catherized urine 01/29/20 04:50 Urine Color Yellow (YELLOW) 01/29/20 04:50 Urine Appearance Clear (CLEAR) 01/29/20 04:50 Urine pH 6.0 (5.0 - 8.0) 01/29/20 04:50 Ur Specific [place] 1.020 (1.000-1.030) 01/29/20 04:50 Urine Protein 1+ (NEGATIVE) 01/29/20 04:50 Urine Glucose (UA) 1+ (NEGATIVE) 01/29/20 04:50 Urine Ketones 1+ (NEGATIVE) 01/29/20 04:50 Urine Occult Blood Negative (NEGATIVE) 01/29/20 04:50 Urine Nitrite Negative (NEGATIVE) 01/29/20 04:50 Urine Bilirubin Negative (NEGATIVE) 01/29/20 04:50 Urine Urobilinogen Normal (NORMAL) 01/29/20 04:50 Ur Leukocyte Esterase Negative (NEGATIVE) 01/29/20 04:50 Urine RBC None seen /HPF (0-3) 01/29/20 04:50 Urine WBC None seen /HPF (0-5) 01/29/20 04:50 Ur Squamous Epith Cells Rare /HPF (NEGATIVE) 01/29/20 04:50 Urine Bacteria Negative /HPF (NEGATIVE) 01/29/20 04:50 Ur Culture Indicated? No/not indicated 01/29/20 04:50 Blood Type A NEGATIVE 01/28/20 01:35 Antibody Screen Negative 01/28/20 01:35 - Plan (1) Pneumonia due to 2019 novel coronavirus Status: Acute Plan: NORMAL SALINE AT KVO, ALBUMIN 25% IV DAILY, PROCALAMINE AT 40 ML/HR, AZITHROMYCIN 500MG IV DAILY, REMDESIVIR 100MG IV DAILY, SOLU-MEDROL 125MG IV Q8H, DUONEBS QID, PULMICORT NEBS BID, MUCOMYST IN NEB [place], LOVENOX 30MG SC BID, TUSSIONEX, ROBITUSSIN, THE POTASSIUM AND MAGNESIUM PROTOCOLS, AND HOME MEDICATIONS WERE RESUMED. WE WILL ORDER CONVALESCENT PLASMA TO BE TRANSFUSED WHEN IT IS AVAILABLE. (2) Hypoxia Status: Acute (3) Acute hypokalemia Status: Acute
[2020-02-08] MEDS: PLAVIX PO SCH (09:05)
[2020-02-08] MEDS: LEXAPRO PO SCH (09:05)
[2020-02-08] MEDS: ROBITUSSIN DM PO SCH ×4 (09:05→21:50)
[2020-02-08] MEDS: ZyrTEC TAB 10 MG PO SCH (09:05)
[2020-02-08] MEDS: REMDESIVIR (INVESTIGATIONAL DRUG GS-5734) 100 MG in NS 250 ML IV 250 ML IV SCH (09:05)
[2020-02-08] MEDS: HYDROCHLOROTHIAZIDE 25 MG TAB PO SCH (09:05)
[2020-02-08] MEDS: TUSSIONEX PENNKINETIC SUSP PO SCH ×2 (09:05→21:50)
[2020-02-08] MEDS: ARICEPT TAB 10 MG PO SCH (09:05)
[2020-02-08] MEDS: ASPIRIN EC 81 MG PO SCH (09:05)
[2020-02-08] MEDS: ZINC SULFATE PO SCH ×2 (09:05→21:50)
[2020-02-08] MEDS: NAMENDA TAB 10 MG PO SCH (09:05)
[2020-02-08] MEDS: PriLOSEC PO SCH (09:05)
[2020-02-08] MEDS: MILK OF MAGNESIA PO SCH ×2 (09:24→22:27)
[2020-02-08] MEDS: PULMICORT NEB TX 0.5 MG NEB SCH ×2 (09:45→21:22)
[2020-02-08] MEDS: DUONEB 0.5 MG/3 MG (3 mL) NEB SCH ×4 (09:45→21:22)
[2020-02-08] MEDS: ALBUMIN HUMAN 25%- 100 ML 100 ML IV SCH (10:44)
[2020-02-08] MEDS: ZOFRAN INJ 4 MG VIAL IVP PRN (10:59)
[2020-02-08] MEDS: ZITHROMAX INJ 500 MG VIAL 500 MG in NS 250 ML IV 250 ML IV SCH (12:23)
--- NOTE | 2020-02-08 12:25 | PCM.PROG ---
Progress Note - Progress Note for Day of Date of Exam: 02/08/20 - Subjective Subjective: IS BEING TREATED FOR PNEUMONIA DUE TO COVID-19, HYPOXIA, AND HYPOKALEMIA. TODAY, SHE IS ALERT AND ORIENTED, LYING IN BED ON MORNING ROUNDS. SHE CONTINUES WITH COMPLAINTS OF SHORTNESS OF BREATH AND WEAKNESS TODAY. SHE IS CURRENTLY ON HEATED HIGH FLOW OXYGEN. SHE DENIES IMPROVEMENT IN SYMPTOMS SINCE YESTERDAY. ON EXAMINATION, HEART IS REGULAR IN RATE AND RHYTHM. BILATERAL LUNGS ARE NOTED WITH SCATTERED WHEEZING THROUGHOUT. ABDOMEN IS ROUND, SOFT, AND NON-TENDER WITH NORMAL BOWEL SOUNDS NOTED IN ALL QUADRANTS. HER VITALS THIS MORNING ARE: 98.1-68-24-93%HHF-139/65. LABS WERE OBTAINED. ABNORMAL LAB VALUES INCLUDE THE FOLLOWING: RBC 3.29, HGB 9.6, HCT 27.8, POTASSIUM 3.4, CHLORIDE 95, CARBON DIOXIDE 37.9, BUN 24, GLUCOSE 231, CALCIUM 7.8, TOTAL PROTEIN 5.3, ALBUMIN 3.3. AN ABG WAS OBTAINED AND REVEALED: PH 7.560, PC02 47, P02 59, HC03 42.1, 02 SAT 94, BASE EXCESS 17.7, FI02 85. SHE HAS RECEIVED TWO UNITS OF CONVALESCENT PLASMA SINCE ADMISSION. SHE WILL RECEIVE ANOTHER WHEN IT IS AVAILABLE. SHE IS CURRENTLY RECEIVING NORMAL SALINE AT KVO, PROCALAMINE AT 40 ML/HR, ALBUMIN 25% IV DAILY, AZITHROMYCIN 500MG IV DAILY, REMDESIVIR 100MG IV DAILY, SOLU-MEDROL 125MG IV Q8H, DUONEBS QID, PULMICORT NEBS BID, MUCOMYST IN NEB [place] LOVENOX 30MG SC BID, MORPHINE 2MG IV Q6H PRN, TUSSIONEX 5ML PO Q12H, ROBITUSSIN DM 10ML PO Q4H, THE POTASSIUM AND MAGNESIUM PROTOCOLS, AND HOME MEDICATIONS WERE RESUMED. WE WILL CONTINUE WITH CURRENT PLAN OF CARE TODAY. OTHERWISE, WE PLAN TO FOLLOW UP WITH AM LABS, CHEST XRAY, AND ABG AND CONTINUE TO MONITOR. - Past Medical Family Social History Past Med/Fam/Surg Hx: No changes since H&P Allergies: Allergies levofloxacin Allergy (Verified 01/27/20 21:24) - Review of Systems ROS: No change since H&P - Vital Signs and I&O's Vital Signs: Temperature 98.1 F Pulse Rate [Left Brachial] 62 Pulse Rate 68 Respiratory Rate 24 Blood Pressure [Left Arm] 139/65 Blood Pressure 151/68 O2 Sat by Pulse Oximetry 93 Intake and Output: Intake & Output 02/06/20 02/07/20 02/08/20 02/09/20 11:59 11:59 11:59 11:59 Intake Total 2699 / 2699 3259 / 3259 2371 / 2371 Balance 2699 / 2699 3259 / 3259 2371 / 2371 - Physical Exam Oriented: Normal Eyes: Normal Ear: Normal Nose: Normal Throat: Normal Respiratory: Generalized, Diminished, Wheezes Cardiovascular: Normal : Normal Auscultation: Bowel Sounds: Normal Palpation: Normal Tenderness: Normal Skin: Normal Musculoskeletal: Normal Psychiatric: Normal Mood Description: Calm Affect: Normal Speech Pattern: Clear, Appropriate - Laboratory and Diagnostics Result Diagrams: 02/08/20 05:30 02/08/20 05:30 Labs: Laboratory WBC 8.2 X10^3/uL (3.6-10.0) 02/08/20 05:30 RBC 3.29 X10^6/uL (3.5-5.4) L 02/08/20 05:30 Hgb 9.6 g/dL (12.0-16.0) L 02/08/20 05:30 Hct 27.8 % (36.0-47.0) L 02/08/20 05:30 MCV 84.6 fL (80.0-100.0) 02/08/20 05:30 MCH 29.3 pg (27.0-34.0) 02/08/20 05:30 MCHC 34.6 g/dL (33.0-35.0) 02/08/20 05:30 RDW 13.8 % (11.6-16.5) 02/08/20 05:30 Plt Count 230 X10^3/uL (150.0-450.0) 02/08/20 05:30 Plt Count Comment Adequate (ADEQUATE) 02/08/20 05:30 MPV 7.7 fL (7.4-11.0) 02/08/20 05:30 Neut % (Auto) 93.9 % (42.0-75.0) H 02/08/20 05:30 Lymph % (Auto) 3.0 % (21.0-51.0) L 02/08/20 05:30 [place] % (Auto) 3.0 % (0.0-13.0) 02/08/20 05:30 Eos % (Auto) 0.0 % (0.9-2.9) L 02/08/20 05:30 Baso % (Auto) 0.1 % (0.2-1.0) L 02/08/20 05:30 Neut # (Auto) 7.7 x10^3/uL (2.2-4.8) H 02/08/20 05:30 Lymph # (Auto) 0.2 X10^3/uL (1.3-2.9) L 02/08/20 05:30 [place] # (Auto) 0.2 x10^3/uL (0.3-0.8) L 02/08/20 05:30 Eos # (Auto) 0.0 x10^3/uL (0.0-0.2) 02/08/20 05:30 Baso # (Auto) 0.0 X10^3/uL (0.0-0.1) 02/08/20 05:30 Absolute Nucleated RBC 0.1 /100WBC 02/08/20 05:30 Total Counted 100 02/08/20 05:30 Neutrophils % (Manual) 90 % (39-76) H 02/08/20 05:30 Band Neutrophils % 2 % (0-10) 02/07/20 05:15 Lymphocytes % (Manual) 5 % (13-43) L 02/08/20 05:30 Monocytes % (Manual) 5 % (4-9) 02/08/20 05:30 Eosinophils % (Manual) 3 % (0-6) 02/05/20 04:11 Plt Morphology Comment Normal (NORMAL) 02/08/20 05:30 RBC Morphology Normal (NORMAL) 02/08/20 05:30 Hypochromasia Slight A 02/04/20 04:11 Anisocytosis Slight A 02/04/20 04:11 PT 13.5 SECONDS (11.8-14.3) 02/02/20 01:20 INR Target Range - 02/02/20 01:20 INR 1.06 (0.8-1.3) 02/02/20 01:20 Sample Site Rrad 02/08/20 05:17 ABG pH 7.560 (7.35-7.45) H* 02/08/20 05:17 ABG pCO2 47.0 mmHg (35.0-45.0) H 02/08/20 05:17 ABG pO2 59.0 mmHg (80.0-100.0) L 02/08/20 05:17 ABG HCO3 42.1 mmol/L (22-26) H* 02/08/20 05:17 ABG O2 Saturation 94.0 % (90-100) 02/08/20 05:17 ABG Base Excess 17.7 mmol/L (-2.0-2.0) H 02/08/20 05:17 Dominik Test Pos 02/08/20 05:17 A-a Gradient 488.0 mmHg 02/08/20 05:17 FiO2 85.0 02/08/20 05:17 Blood Gas Comments Wilian abg well-mtf 02/08/20 05:17 Sodium 136 mmol/L (136-145) 02/08/20 05:30 Corrected Sodium 139 mmol/L (136-145) 02/08/20 05:30 Potassium 3.4 mmol/L (3.5-5.1) L 02/08/20 05:30 Chloride 95 mmol/L (98-107) L 02/08/20 05:30 Carbon Dioxide 37.9 mmol/L (21-32) H 02/08/20 05:30 BUN 24 mg/dL (7-18) H 02/08/20 05:30 Creatinine 0.92 mg/dL (0.55-1.02) 02/08/20 05:30 Est GFR (MDRD) Af Amer > 60 (>60) 02/08/20 05:30 Est GFR (MDRD) Non-Af > 60 (>60) 02/08/20 05:30 Glucose 231 mg/dL (65-99) H 02/08/20 05:30 Calcium 7.8 mg/dL (8.5-10.1) L 02/08/20 05:30 Corrected Calcium 8.4 mg/dL (8.5-10.1) L 02/08/20 05:30 Magnesium 2.0 mg/dL (1.7-2.9) 02/07/20 05:15 Ferritin 218 ng/mL (8-252) 02/08/20 05:30 Total Bilirubin 0.90 mg/dL (0.2-1.0) 02/08/20 05:30 AST 20 Units/L (15-37) 02/08/20 05:30 ALT 25 Units/L (12-78) 02/08/20 05:30 Alkaline Phosphatase 60 Units/L (46-116) 02/08/20 05:30 Troponin I < 0.02 ng/mL (0-1.5) 01/28/20 01:35 C-Reactive Protein 1.40 mg/L (0-3.0) 02/08/20 05:30 Total Protein 5.3 g/dL (6.4-8.2) L 02/08/20 05:30 Albumin 3.3 g/dL (3.4-5.0) L 02/08/20 05:30 Globulin 2.0 g/dL (2.5-4.5) L 02/08/20 05:30 Albumin/Globulin Ratio 1.7 Ratio (1.1-2.1) 02/08/20 05:30 Specimen Type Catherized urine 01/29/20 04:50 Urine Color Yellow (YELLOW) 01/29/20 04:50 Urine Appearance Clear (CLEAR) 01/29/20 04:50 Urine pH 6.0 (5.0 - 8.0) 01/29/20 04:50 Ur Specific [place] 1.020 (1.000-1.030) 01/29/20 04:50 Urine Protein 1+ (NEGATIVE) 01/29/20 04:50 Urine Glucose (UA) 1+ (NEGATIVE) 01/29/20 04:50 Urine Ketones 1+ (NEGATIVE) 01/29/20 04:50 Urine Occult Blood Negative (NEGATIVE) 01/29/20 04:50 Urine Nitrite Negative (NEGATIVE) 01/29/20 04:50 Urine Bilirubin Negative (NEGATIVE) 01/29/20 04:50 Urine Urobilinogen Normal (NORMAL) 01/29/20 04:50 Ur Leukocyte Esterase Negative (NEGATIVE) 01/29/20 04:50 Urine RBC None seen /HPF (0-3) 01/29/20 04:50 Urine WBC None seen /HPF (0-5) 01/29/20 04:50 Ur Squamous Epith Cells Rare /HPF (NEGATIVE) 01/29/20 04:50 Urine Bacteria Negative /HPF (NEGATIVE) 01/29/20 04:50 Ur Culture Indicated? No/not indicated 01/29/20 04:50 Blood Type A NEGATIVE 01/28/20 01:35 Antibody Screen Negative 01/28/20 01:35 - Plan (1) Pneumonia due to 2019 novel coronavirus Status: Acute Plan: NORMAL SALINE AT KVO, ALBUMIN 25% IV DAILY, PROCALAMINE AT 40 ML/HR, AZITHROMYCIN 500MG IV DAILY, REMDESIVIR 100MG IV DAILY, SOLU-MEDROL 125MG IV Q8H, DUONEBS QID, PULMICORT NEBS BID, MUCOMYST IN NEB [place], LOVENOX 30MG SC BID, TUSSIONEX, ROBITUSSIN, THE POTASSIUM AND MAGNESIUM PROTOCOLS, AND HOME MEDICATIONS WERE RESUMED. WE WILL ORDER CONVALESCENT PLASMA TO BE TRANSFUSED WHEN IT IS AVAILABLE. (2) Hypoxia Status: Acute (3) Acute hypokalemia Status: Acute
[2020-02-08] MEDS ORDERED: SOLU-Medrol 40 MG VIAL ONE (13:53)
[2020-02-08] MEDS: COLACE CAP 100 MG PO SCH (21:50)
[2020-02-09] MEDS: ZOFRAN INJ 4 MG VIAL IVP PRN ×2 (01:47→09:42)
[2020-02-09] MEDS: NS 1000 ML 1,000 ML IV SCH (03:06)
[2020-02-09 05:52] LABS: ABG BASE EXCESS 18.5 mmol/L (-2.0-2.0)
[2020-02-09 05:54] LABS: ABG ALLEN TEST POS; ABG HCO3 44.1 mmol/L (22-26)
--- NOTE | 2020-02-09 06:07 | RAD ---
HISTORYSOBSTUDYCHEST, 1 [id number]/2020FINDINGSThe trachea is midline. The cardiac silhouette is unremarkable. Scattered interstitial infiltrates bilaterally unchanged. No pleural effusion or pneumothorax.. The bony thorax is unremarkable.IMPRESSIONScattered bilateral interstitial infiltrates unchanged from 02/08/2020Electronically signed by: Suleiman Juarez (Feb 09, 2020 06:07:03)
[2020-02-09] MEDS: SOLU-Medrol 125 MG VIAL IVP SCH ×3 (06:15→21:15)
[2020-02-09] MEDS: XANAX PO SCH ×3 (06:15→21:16)
[2020-02-09 06:58] LABS: ALANINE AMINOTRANSFERASE 26 Units/L (12-78); ALBUMIN 3.4 g/dL (3.4-5.0); ALKALINE PHOSPHATASE 59 Units/L (46-116); ASPARTATE AMINO TRANSFERASE 18 Units/L (15-37); BASOPHILS % (AUTO) 0.1 % (0.2-1.0); BLOOD UREA NITROGEN 22 mg/dL (7-18); CALCIUM 7.8 mg/dL (8.5-10.1); CARBON DIOXIDE 37.8 mmol/L (21-32); CHLORIDE 96 mmol/L (98-107); COR NA(FOR HYPERGLY) 140 mmol/L (136-145); CREATININE 0.85 mg/dL (0.55-1.02); HEMATOCRIT 27.8 % (36.0-47.0); HEMOGLOBIN 9.5 g/dL (12.0-16.0); LYMPHOCYTES # (AUTO) 0.3 X10^3/uL (1.3-2.9); LYMPHOCYTES % (AUTO) 3.5 % (21.0-51.0); MEAN CORPUSCULAR HEMOGLOBIN 29.2 pg (27.0-34.0); MEAN CORPUSCULAR HGB CONC 34.1 g/dL (33.0-35.0); MEAN CORPUSCULAR VOLUME 85.5 fL (80.0-100.0); MEAN PLATELET VOLUME 8.2 fL (7.4-11.0); MONOCYTES # (AUTO) 0.4 x10^3/uL (0.3-0.8); MONOCYTES % (AUTO) 4.5 % (0.0-13.0); NEUTROPHILS # (AUTO) 8.3 x10^3/uL (2.2-4.8); NEUTROPHILS % (AUTO) 91.9 % (42.0-75.0); PLATELET COUNT 208 X10^3/uL (150.0-450.0); RED BLOOD COUNT 3.24 X10^6/uL (3.5-5.4); SODIUM 137 mmol/L (136-145); TOTAL PROTEIN 5.3 g/dL (6.4-8.2); WHITE BLOOD COUNT 9.1 X10^3/uL (3.6-10.0); eGFR NON BLACK RACES > 60 (>60)
[2020-02-09] MEDS ORDERED: LEXAPRO ONE (08:08)
[2020-02-09 08:25] LABS: PLATELET MORPHOLOGY COMMENT NORMAL (NORMAL)
[2020-02-09] MEDS: PULMICORT NEB TX 0.5 MG NEB SCH ×2 (09:15→20:30)
[2020-02-09] MEDS: DUONEB 0.5 MG/3 MG (3 mL) NEB SCH ×4 (09:15→20:30)
[2020-02-09] MEDS: ROBITUSSIN DM PO SCH ×4 (09:37→21:15)
[2020-02-09] MEDS: ARICEPT TAB 10 MG PO SCH (09:37)
[2020-02-09] MEDS: PLAVIX PO SCH (09:38)
[2020-02-09] MEDS: ZINC SULFATE PO SCH ×2 (09:38→21:15)
[2020-02-09] MEDS: ASPIRIN EC 81 MG PO SCH (09:39)
[2020-02-09] MEDS: ZyrTEC TAB 10 MG PO SCH (09:39)
[2020-02-09] MEDS: PriLOSEC PO SCH (09:40)
[2020-02-09] MEDS: NAMENDA TAB 10 MG PO SCH (09:40)
[2020-02-09] MEDS: ZITHROMAX INJ 500 MG VIAL 500 MG in NS 250 ML IV 250 ML IV SCH (09:41)
[2020-02-09] MEDS: LEXAPRO PO SCH (09:41)
[2020-02-09] MEDS: HYDROCHLOROTHIAZIDE 25 MG TAB PO SCH (09:41)
[2020-02-09] MEDS: K-DUR TAB 20 MEQ PO PRN (09:42)
[2020-02-09] MEDS: TUSSIONEX PENNKINETIC SUSP PO SCH ×2 (10:00→21:15)
[2020-02-09] MEDS: MILK OF MAGNESIA PO SCH ×2 (10:23→21:15)
[2020-02-09] MEDS: ALBUMIN HUMAN 25%- 100 ML 100 ML IV SCH (11:46)
[2020-02-09] MEDS: COLACE CAP 100 MG PO SCH (21:14)
[2020-02-10] MEDS: NS 1000 ML 1,000 ML IV SCH (04:42)
[2020-02-10 05:03] LABS: BASOPHILS % (AUTO) 0.1 % (0.2-1.0); HEMATOCRIT 27.2 % (36.0-47.0); HEMOGLOBIN 9.5 g/dL (12.0-16.0); LYMPHOCYTES # (AUTO) 0.2 X10^3/uL (1.3-2.9); LYMPHOCYTES % (AUTO) 2.2 % (21.0-51.0); MEAN CORPUSCULAR HEMOGLOBIN 29.9 pg (27.0-34.0); MEAN CORPUSCULAR HGB CONC 34.9 g/dL (33.0-35.0); MEAN CORPUSCULAR VOLUME 85.6 fL (80.0-100.0); MEAN PLATELET VOLUME 8.4 fL (7.4-11.0); MONOCYTES # (AUTO) 0.3 x10^3/uL (0.3-0.8); MONOCYTES % (AUTO) 3.8 % (0.0-13.0); NEUTROPHILS # (AUTO) 8.3 x10^3/uL (2.2-4.8); NEUTROPHILS % (AUTO) 93.9 % (42.0-75.0); PLATELET COUNT 183 X10^3/uL (150.0-450.0); RED BLOOD COUNT 3.18 X10^6/uL (3.5-5.4); RED CELL DISTRIBUTION WIDTH 13.8 % (11.6-16.5); WHITE BLOOD COUNT 8.8 X10^3/uL (3.6-10.0)
[2020-02-10 05:05] LABS: ALANINE AMINOTRANSFERASE 28 Units/L (12-78); ALBUMIN 3.6 g/dL (3.4-5.0); ALKALINE PHOSPHATASE 59 Units/L (46-116); ASPARTATE AMINO TRANSFERASE 18 Units/L (15-37); BLOOD UREA NITROGEN 20 mg/dL (7-18); CALCIUM 7.9 mg/dL (8.5-10.1); CARBON DIOXIDE 39.2 mmol/L (21-32); CHLORIDE 98 mmol/L (98-107); COR NA(FOR HYPERGLY) 143 mmol/L (136-145); CREATININE 0.84 mg/dL (0.55-1.02); SODIUM 139 mmol/L (136-145); TOTAL PROTEIN 5.3 g/dL (6.4-8.2); eGFR NON BLACK RACES > 60 (>60)
[2020-02-10 05:26] LABS: ABG BASE EXCESS 15.7 mmol/L (-2.0-2.0)
[2020-02-10 05:27] LABS: ABG ALLEN TEST POS; ABG HCO3 41.3 mmol/L (22-26)
[2020-02-10] MEDS: SOLU-Medrol 125 MG VIAL IVP SCH ×3 (05:56→21:39)
[2020-02-10] MEDS: XANAX PO SCH ×3 (05:57→21:40)
--- NOTE | 2020-02-10 06:12 | RAD ---
HISTORYShortness of breathSTUDYChest AP [id number]/25/2020FINDINGSThe heart is enlarged. The lungs are hypoinflated. Bilateral interstitial and some ground-glass infiltrates are again identified not significantly changed in degree or distribution from the prior examination. No pleural effusions are identified. Bony thorax is unremarkable.IMPRESSIONNo change cardiomegaly without definite congestive heart failureNo change diffuse bilateral interstitial and some ground-glass infiltratesNo change hypo inflationElectronically signed by: RACHNA GAGE (Feb 10, 2020 06:11:50)
[2020-02-10 06:17] LABS: PLATELET MORPHOLOGY COMMENT NORMAL (NORMAL)
[2020-02-10] MEDS: PULMICORT NEB TX 0.5 MG NEB SCH ×2 (07:50→21:00)
[2020-02-10] MEDS: DUONEB 0.5 MG/3 MG (3 mL) NEB SCH ×4 (07:50→21:00)
[2020-02-10] MEDS: MORPHINE SULFATE INJ 2 MG INJ IVP PRN (08:00)
[2020-02-10] MEDS ORDERED: LEXAPRO ONE (08:03)
--- NOTE | 2020-02-10 08:35 | PCM.PROG ---
Progress Note - Progress Note for Day of Date of Exam: 02/09/20 - Subjective Subjective: IS BEING TREATED FOR PNEUMONIA DUE TO COVID-19, HYPOXIA, AND HYPOKALEMIA. TODAY, SHE IS ALERT AND ORIENTED, LYING IN BED ON MORNING ROUNDS. SHE CONTINUES WITH COMPLAINTS OF SHORTNESS OF BREATH AND WEAKNESS TODAY. SHE IS CURRENTLY ON HEATED HIGH FLOW OXYGEN. OXYGEN HAS BEEN INCREASED. SHE IS NOW ON AN FI02 OF 85%. SHE DENIES IMPROVEMENT IN SYMPTOMS SINCE YESTERDAY. ON EXAMINATION, HEART IS REGULAR IN RATE AND RHYTHM. BILATERAL LUNGS ARE NOTED WITH SCATTERED WHEEZING THROUGHOUT. ABDOMEN IS ROUND, SOFT, AND NON-TENDER WITH NORMAL BOWEL SOUNDS NOTED IN ALL QUADRANTS. HER VITALS THIS MORNING ARE: 97.2-62-39-89%HHF-152/65. LABS WERE OBTAINED. ABNORMAL LAB VALUES INCLUDE THE FOLLOWING: RBC 3.24, HGB 9.5, HCT 27.8, POTASSIUM 3.0, CHLORIDE 96, CARBON DIOXIDE 37.8, CREATININE 22, GLUCOSE 225, CALCIUM 7.8, TOTAL PROTEIN 5.3, GLOBULIN 1.9. AN ABG WAS OBTAINED AND REVEALED: PH 7.520, PC02 54, P02 51, HC03 44.1, 02 SAT 90, FI02 85. A CHEST XRAY WAS OBTAINED AND REVEALED: Scattered b ilateral interstitial infiltrates unchanged from 02/08/2020. SHE HAS RECEIVED TWO UNITS OF CONVALESCENT PLASMA SINCE ADMISSION. SHE WILL RECEIVE ANOTHER WHEN IT IS AVAILABLE. SHE IS CURRENTLY RECEIVING NORMAL SALINE AT KVO, PROCALAMINE AT 40 ML/HR, ALBUMIN 25% IV DAILY, AZITHROMYCIN 500MG IV DAILY, REMDESIVIR 100MG IV DAILY, SOLU-MEDROL 125MG IV Q8H, DUONEBS QID, PULMICORT NEBS BID, MUCOMYST IN NE B [place] LOVENOX 30MG SC BID, MORPHINE 2MG IV Q6H PRN, TUSSIONEX 5ML PO Q12H, ROBITUSSIN DM 10ML PO Q4H, THE POTASSIUM AND MAGNESIUM PROTOCOLS, AND HOME MEDICATIONS WERE RESUMED. WE WILL CONTINUE WITH CURRENT PLAN OF CARE TODAY. OTHERWISE, WE PLAN TO FOLLOW UP WITH AM LABS, CHEST XRAY, AND ABG AND CONTINUE TO MONITOR. - Past Medical Family Social History Past Med/Fam/Surg Hx: No changes since H&P Allergies: Allergies levofloxacin Allergy (Verified 01/27/20 21:24) - Review of Systems ROS: No change since H&P - Vital Signs and I&O's Vital Signs: Temperature 97.8 F Pulse Rate [Left Brachial] 60 Pulse Rate 71 Respiratory Rate 22 Blood Pressure [Left Arm] 161/77 Blood Pressure 151/68 O2 Sat by Pulse Oximetry 93 Intake and Output: Intake & Output 02/07/20 02/08/20 02/09/20 02/10/20 11:59 11:59 11:59 11:59 Intake Total 3259 / 3259 2371 / 2371 3570 / 3570 2610 / 2610 Output Total 950 / 950 500 / 500 Balance 3259 / 3259 2371 / 2371 2620 / 2620 2110 / 2110 - Physical Exam Oriented: Normal Eyes: Normal Ear: Normal Nose: Normal Throat: Normal Respiratory: Generalized, Diminished, Wheezes Cardiovascular: Normal : Normal Auscultation: Bowel Sounds: Normal Tenderness: Normal Skin: Normal Musculoskeletal: Normal Psychiatric: Normal Mood Description: Calm Affect: Normal Speech Pattern: Clear, Appropriate - Laboratory and Diagnostics Result Diagrams: 02/10/20 04:30 02/10/20 04:30 Labs: Laboratory WBC 8.8 X10^3/uL (3.6-10.0) 02/10/20 04:30 RBC 3.18 X10^6/uL (3.5-5.4) L 02/10/20 04:30 Hgb 9.5 g/dL (12.0-16.0) L 02/10/20 04:30 Hct 27.2 % (36.0-47.0) L 02/10/20 04:30 MCV 85.6 fL (80.0-100.0) 02/10/20 04:30 MCH 29.9 pg (27.0-34.0) 02/10/20 04:30 MCHC 34.9 g/dL (33.0-35.0) 02/10/20 04:30 RDW 13.8 % (11.6-16.5) 02/10/20 04:30 Plt Count 183 X10^3/uL (150.0-450.0) 02/10/20 04:30 Plt Count Comment Adequate (ADEQUATE) 02/10/20 04:30 MPV 8.4 fL (7.4-11.0) 02/10/20 04:30 Neut % (Auto) 93.9 % (42.0-75.0) H 02/10/20 04:30 Lymph % (Auto) 2.2 % (21.0-51.0) L 02/10/20 04:30 [place] % (Auto) 3.8 % (0.0-13.0) 02/10/20 04:30 Eos % (Auto) 0.0 % (0.9-2.9) L 02/10/20 04:30 Baso % (Auto) 0.1 % (0.2-1.0) L 02/10/20 04:30 Neut # (Auto) 8.3 x10^3/uL (2.2-4.8) H 02/10/20 04:30 Lymph # (Auto) 0.2 X10^3/uL (1.3-2.9) L 02/10/20 04:30 [place] # (Auto) 0.3 x10^3/uL (0.3-0.8) 02/10/20 04:30 Eos # (Auto) 0.0 x10^3/uL (0.0-0.2) 02/10/20 04:30 Baso # (Auto) 0.0 X10^3/uL (0.0-0.1) 02/10/20 04:30 Absolute Nucleated RBC 0.0 /100WBC 02/10/20 04:30 Total Counted 100 02/10/20 04:30 Neutrophils % (Manual) 97 % (39-76) H 02/10/20 04:30 Band Neutrophils % 2 % (0-10) 02/07/20 05:15 Lymphocytes % (Manual) 1 % (13-43) L 02/10/20 04:30 Monocytes % (Manual) 2 % (4-9) L 02/10/20 04:30 Eosinophils % (Manual) 3 % (0-6) 02/05/20 04:11 Plt Morphology Comment Normal (NORMAL) 02/10/20 04:30 RBC Morphology Normal (NORMAL) 02/10/20 04:30 Hypochromasia Slight A 02/04/20 04:11 Anisocytosis Slight A 02/04/20 04:11 PT 13.5 SECONDS (11.8-14.3) 02/02/20 01:20 INR Target Range - 02/02/20 01:20 INR 1.06 (0.8-1.3) 02/02/20 01:20 Sample Site Lr 02/10/20 05:20 ABG pH 7.500 (7.35-7.45) H 02/10/20 05:20 ABG pCO2 53.0 mmHg (35.0-45.0) H* 02/10/20 05:20 ABG pO2 51.0 mmHg (80.0-100.0) L 02/10/20 05:20 ABG HCO3 41.3 mmol/L (22-26) H* 02/10/20 05:20 ABG O2 Saturation 89.0 % (90-100) L 02/10/20 05:20 ABG Base Excess 15.7 mmol/L (-2.0-2.0) H 02/10/20 05:20 Dominik Test Pos 02/10/20 05:20 A-a Gradient 503.0 mmHg 02/10/20 05:20 FiO2 87.0 02/10/20 05:20 Blood Gas Comments Wilian well ae 02/10/20 05:20 Sodium 139 mmol/L (136-145) 02/10/20 04:30 Corrected Sodium 143 mmol/L (136-145) 02/10/20 04:30 Potassium 3.4 mmol/L (3.5-5.1) L 02/10/20 04:30 Chloride 98 mmol/L (98-107) 02/10/20 04:30 Carbon Dioxide 39.2 mmol/L (21-32) H 02/10/20 04:30 BUN 20 mg/dL (7-18) H 02/10/20 04:30 Creatinine 0.84 mg/dL (0.55-1.02) 02/10/20 04:30 Est GFR (MDRD) Af Amer > 60 (>60) 02/10/20 04:30 Est GFR (MDRD) Non-Af > 60 (>60) 02/10/20 04:30 Glucose 246 mg/dL (65-99) H 02/10/20 04:30 Calcium 7.9 mg/dL (8.5-10.1) L 02/10/20 04:30 Corrected Calcium TNP 02/10/20 04:30 Magnesium 2.0 mg/dL (1.7-2.9) 02/07/20 05:15 Ferritin 192 ng/mL (8-252) 02/10/20 04:30 Total Bilirubin 1.00 mg/dL (0.2-1.0) 02/10/20 04:30 AST 18 Units/L (15-37) 02/10/20 04:30 ALT 28 Units/L (12-78) 02/10/20 04:30 Alkaline Phosphatase 59 Units/L (46-116) 02/10/20 04:30 Troponin I < 0.02 ng/mL (0-1.5) 01/28/20 01:35 C-Reactive Protein 0.50 mg/L (0-3.0) 02/10/20 04:30 Total Protein 5.3 g/dL (6.4-8.2) L 02/10/20 04:30 Albumin 3.6 g/dL (3.4-5.0) 02/10/20 04:30 Globulin 1.7 g/dL (2.5-4.5) L 02/10/20 04:30 Albumin/Globulin Ratio 2.1 Ratio (1.1-2.1) 02/10/20 04:30 Specimen Type Catherized urine 01/29/20 04:50 Urine Color Yellow (YELLOW) 01/29/20 04:50 Urine Appearance Clear (CLEAR) 01/29/20 04:50 Urine pH 6.0 (5.0 - 8.0) 01/29/20 04:50 Ur Specific [place] 1.020 (1.000-1.030) 01/29/20 04:50 Urine Protein 1+ (NEGATIVE) 01/29/20 04:50 Urine Glucose (UA) 1+ (NEGATIVE) 01/29/20 04:50 Urine Ketones 1+ (NEGATIVE) 01/29/20 04:50 Urine Occult Blood Negative (NEGATIVE) 01/29/20 04:50 Urine Nitrite Negative (NEGATIVE) 01/29/20 04:50 Urine Bilirubin Negative (NEGATIVE) 01/29/20 04:50 Urine Urobilinogen Normal (NORMAL) 01/29/20 04:50 Ur Leukocyte Esterase Negative (NEGATIVE) 01/29/20 04:50 Urine RBC None seen /HPF (0-3) 01/29/20 04:50 Urine WBC None seen /HPF (0-5) 01/29/20 04:50 Ur Squamous Epith Cells Rare /HPF (NEGATIVE) 01/29/20 04:50 Urine Bacteria Negative /HPF (NEGATIVE) 01/29/20 04:50 Ur Culture Indicated? No/not indicated 01/29/20 04:50 Miscellaneous Test Covid 19 02/05/20 12:20 Blood Type A NEGATIVE 01/28/20 01:35 Antibody Screen Negative 01/28/20 01:35 - Plan (1) Pneumonia due to 2019 novel coronavirus Status: Acute Plan: NORMAL SALINE AT KVO, ALBUMIN 25% IV DAILY, PROCALAMINE AT 40 ML/HR, AZITHROMYCIN 500MG IV DAILY, REMDESIVIR 100MG IV DAILY, SOLU-MEDROL 125MG IV Q8H, DUONEBS QID, PULMICORT NEBS BID, MUCOMYST IN NEB [place], LOVENOX 30MG SC BID, TUSSIONEX, ROBITUSSIN, THE POTASSIUM AND MAGNESIUM PROTOCOLS, AND HOME MEDICATIONS WERE RESUMED. WE WILL ORDER CONVALESCENT PLASMA TO BE TRANSFUSED WHEN IT IS AVAILABLE. (2) Hypoxia Status: Acute (3) Acute hypokalemia Status: Acute
[2020-02-10] MEDS: ALBUMIN HUMAN 25%- 100 ML 100 ML IV SCH (10:00)
[2020-02-10] MEDS: MUCOMYST 20% 200 MG/ML NEB SCH ×2 (10:25→21:00)
[2020-02-10] MEDS: ARICEPT TAB 10 MG PO SCH (11:30)
[2020-02-10] MEDS: HYDROCHLOROTHIAZIDE 25 MG TAB PO SCH (11:30)
[2020-02-10] MEDS: ASPIRIN EC 81 MG PO SCH (11:30)
[2020-02-10] MEDS: LEXAPRO PO SCH (11:31)
[2020-02-10] MEDS: NAMENDA TAB 10 MG PO SCH (11:32)
[2020-02-10] MEDS: PLAVIX PO SCH (11:32)
[2020-02-10] MEDS: ROBITUSSIN DM PO SCH ×4 (11:33→21:39)
[2020-02-10] MEDS: ZINC SULFATE PO SCH ×2 (11:33→21:39)
[2020-02-10] MEDS: ZITHROMAX INJ 500 MG VIAL 500 MG in NS 250 ML IV 250 ML IV SCH (11:33)
[2020-02-10] MEDS: TUSSIONEX PENNKINETIC SUSP PO SCH ×2 (11:34→21:40)
[2020-02-10] MEDS: ZyrTEC TAB 10 MG PO SCH (11:34)
[2020-02-10] MEDS: PEPCID 20 MG IV PREMIX* 20 MG/50 ML BAG IV SCH ×2 (11:35→21:38)
[2020-02-10] MEDS: LEVSIN/MAALOX/LIDOC VISC PO SCH ×4 (11:35→21:38)
[2020-02-10] MEDS: PROTONIX INJ 40 MG VIAL IVP SCH ×2 (11:36→21:38)
[2020-02-10] MEDS: MILK OF MAGNESIA PO SCH ×2 (14:18→21:38)
[2020-02-10] MEDS: COLACE CAP 100 MG PO SCH (21:37)
[2020-02-11] MEDS: NS 1000 ML 1,000 ML IV SCH (04:29)
[2020-02-11 04:38] LABS: BASOPHILS % (AUTO) 0.2 % (0.2-1.0); HEMATOCRIT 27.9 % (36.0-47.0); HEMOGLOBIN 9.5 g/dL (12.0-16.0); LYMPHOCYTES # (AUTO) 0.2 X10^3/uL (1.3-2.9); LYMPHOCYTES % (AUTO) 1.9 % (21.0-51.0); MEAN CORPUSCULAR HEMOGLOBIN 29.5 pg (27.0-34.0); MEAN CORPUSCULAR VOLUME 86.7 fL (80.0-100.0); MEAN PLATELET VOLUME 8.2 fL (7.4-11.0); MONOCYTES # (AUTO) 0.5 x10^3/uL (0.3-0.8); MONOCYTES % (AUTO) 4.3 % (0.0-13.0); NEUTROPHILS # (AUTO) 10.2 x10^3/uL (2.2-4.8); NEUTROPHILS % (AUTO) 93.6 % (42.0-75.0); PLATELET COUNT 152 X10^3/uL (150.0-450.0); RED BLOOD COUNT 3.21 X10^6/uL (3.5-5.4); RED CELL DISTRIBUTION WIDTH 14.5 % (11.6-16.5); WHITE BLOOD COUNT 10.9 X10^3/uL (3.6-10.0)
[2020-02-11] MEDS: ZOFRAN INJ 4 MG VIAL IVP PRN (04:42)
[2020-02-11 04:50] LABS: ALANINE AMINOTRANSFERASE 27 Units/L (12-78); ALBUMIN 3.6 g/dL (3.4-5.0); ALKALINE PHOSPHATASE 58 Units/L (46-116); ASPARTATE AMINO TRANSFERASE 17 Units/L (15-37); BLOOD UREA NITROGEN 17 mg/dL (7-18); CALCIUM 8.1 mg/dL (8.5-10.1); CARBON DIOXIDE 35.6 mmol/L (21-32); CHLORIDE 97 mmol/L (98-107); COR NA(FOR HYPERGLY) 139 mmol/L (136-145); CREATININE 0.88 mg/dL (0.55-1.02); SODIUM 136 mmol/L (136-145); TOTAL PROTEIN 5.4 g/dL (6.4-8.2); eGFR NON BLACK RACES > 60 (>60)
[2020-02-11 05:04] LABS: PLATELET MORPHOLOGY COMMENT NORMAL (NORMAL)
[2020-02-11] MEDS: SOLU-Medrol 125 MG VIAL IVP SCH ×4 (05:41→22:17)
[2020-02-11] MEDS: XANAX PO SCH ×3 (05:42→22:17)
[2020-02-11 06:07] LABS: ABG BASE EXCESS 14.8 mmol/L (-2.0-2.0)
[2020-02-11 06:08] LABS: ABG HCO3 40.4 mmol/L (22-26)
[2020-02-11 06:09] LABS: ABG ALLEN TEST POS
--- NOTE | 2020-02-11 06:19 | RAD ---
HISTORYSOBSTUDYCHEST, 1 VIEWCOMPARISONOne day priorTECHNIQUEAP view of the chestFINDINGSCardiac silhouette is stably enlarged. No significant change in bilateral predominantly interstitial opacities. Suspect a small left pleural effusion. No pneumothorax. Low lung volumes.IMPRESSIONNo significant change.Electronically signed by: Pino Palacio (Feb 11, 2020 06:18:48)
[2020-02-11] MEDS ORDERED: DUONEB 0.5 MG/3 MG (3 mL) NEB ONE (06:23)
[2020-02-11] MEDS: DUONEB 0.5 MG/3 MG (3 mL) NEB SCH ×5 (06:46→21:31)
[2020-02-11] MEDS: MAGNESIUM SULFATE 1 GRAM/100 mL PREMIX 1 GM/100 ML BAG IV PRN ×2 (07:27→14:49)
[2020-02-11] MEDS ORDERED: LEXAPRO ONE (08:03)
[2020-02-11] MEDS: ALBUMIN HUMAN 25%- 100 ML 100 ML IV SCH (08:52)
[2020-02-11] MEDS: LEXAPRO PO SCH (09:30)
[2020-02-11] MEDS: ASPIRIN EC 81 MG PO SCH (09:37)
[2020-02-11] MEDS: HYDROCHLOROTHIAZIDE 25 MG TAB PO SCH (09:37)
[2020-02-11] MEDS: ARICEPT TAB 10 MG PO SCH (09:37)
[2020-02-11] MEDS: LEVSIN/MAALOX/LIDOC VISC PO SCH ×4 (09:38→22:15)
[2020-02-11] MEDS: NAMENDA TAB 10 MG PO SCH (09:38)
[2020-02-11] MEDS: MILK OF MAGNESIA PO SCH ×2 (09:38→22:15)
[2020-02-11] MEDS: PLAVIX PO SCH (09:39)
[2020-02-11] MEDS: ROBITUSSIN DM PO SCH ×4 (09:39→22:16)
[2020-02-11] MEDS: ZINC SULFATE PO SCH ×2 (09:40→22:16)
[2020-02-11] MEDS: ZyrTEC TAB 10 MG PO SCH (09:41)
[2020-02-11] MEDS: K-DUR TAB 20 MEQ PO PRN (09:41)
[2020-02-11] MEDS: TUSSIONEX PENNKINETIC SUSP PO SCH ×2 (09:42→22:17)
[2020-02-11] MEDS: ZITHROMAX INJ 500 MG VIAL 500 MG in NS 250 ML IV 250 ML IV SCH (09:50)
[2020-02-11] MEDS: MUCOMYST 20% 200 MG/ML NEB SCH ×2 (10:35→21:31)
[2020-02-11] MEDS: PULMICORT NEB TX 0.5 MG NEB SCH ×2 (10:35→21:31)
--- NOTE | 2020-02-11 10:35 | PCM.PROG ---
Progress Note - Progress Note for Day of Date of Exam: 02/10/20 - Subjective Subjective: IS BEING TREATED FOR PNEUMONIA DUE TO COVID-19, HYPOXIA, AND HYPOKALEMIA. TODAY, SHE IS ALERT AND ORIENTED, LYING IN BED ON MORNING ROUNDS. SHE CONTINUES WITH COMPLAINTS OF SHORTNESS OF BREATH AND WEAKNESS TODAY. SHE HAS BEEN PLACED BACK ON THE BIPAP THIS MORNING DUE TO SATURATIONS IN THE LOW 80s. SHE REPORTS WORSENING IN SHORTNESS OF BREATH TODAY. ON EXAMINATION, HEART IS REGULAR IN RATE AND RHYTHM. BILATERAL LUNGS ARE NOTED WITH SCATTERED WHEEZING THROUGHOUT. ABDOMEN IS ROUND, SOFT, AND NON-TENDER WITH NORMAL BOWEL SOUNDS NOTED IN ALL QUADRANTS. HER VITALS THIS MORNING ARE: 98.2-68-54-98%-156/68. LABS WERE OBTAINED. ABNORMAL LAB VALUES INCLUDE THE FOLLOWING: RBC 3.18, HGB 9.5, HCT 27.2, POTASSIUM 3.4, CARBON DIOXIDE 39.2, BUN 20, GLUCOSE 246, CALCIUM 7.9, TOTAL PROTEIN 5.3. AN ABG WAS OBTAINED AND REVEALED: PH 7.500, PC02 53, P02 51, HC03 41.3, 02 SAT 89, BASE EXCESS 15.7, FI02 87. A CHEST XRAY WAS OBTAINED AND REVEALED: No change cardiomegaly without definite congestive heart failure. No change diffuse bilateral interstitial and some ground-glass infiltrates. No c hange hypo inflation. SHE HAS RECEIVED THREE UNITS OF CONVALESCENT PLASMA SINCE ADMISSION. SHE IS CURRENTLY RECEIVING NORMAL SALINE AT KVO, PROCALAMINE AT 40 ML/HR, ALBUMIN 25% IV DAILY, AZITHROMYCIN 500MG IV DAILY, REMDESIVIR 100MG IV DAILY, SOLU-MEDROL 125MG IV Q8H, DUONEBS QID, PULMICORT NEBS BID, MUCOMYST IN NEB [place] LOVENOX 30MG SC BID, MORPHINE 2MG IV Q6H PRN, TUSSIONEX 5ML PO Q12H, ROBITUSSIN DM 10ML PO Q4H, THE POTASSIUM AND MAGNESIUM PROTOCOLS, AND HOME MEDICATIONS WERE RESUMED. WE WILL CONTINUE WITH CURRENT PLAN OF CARE TODAY AND ADD PEPCID 20MG IV Q12H AND PROTONIX 40MG IV BID. OTHERWISE, WE PLAN TO FOLLOW UP WITH AM LABS, CHEST XRAY, AND ABG AND CONTINUE TO MONITOR. - Past Medical Family Social History Past Med/Fam/Surg Hx: No changes since H&P Allergies: Allergies levofloxacin Allergy (Verified 01/27/20 21:24) - Review of Systems ROS: No change since H&P - Vital Signs and I&O's Vital Signs: Temperature 97.6 F Pulse Rate [Left Brachial] 61 Pulse Rate 69 Respiratory Rate 22 Blood Pressure [Left Arm] 155/69 Blood Pressure 151/68 O2 Sat by Pulse Oximetry 97 Intake and Output: Intake & Output 02/08/20 02/09/20 02/10/20 02/11/20 11:59 11:59 11:59 11:59 Intake Total 2371 / 2371 3570 / 3570 2610 / 2610 1633 / 1633 Output Total 950 / 950 500 / 500 Balance 2371 / 2371 2620 / 2620 2110 / 2110 1633 / 1633 - Physical Exam Oriented: Normal Eyes: Normal Ear: Normal Nose: Normal Throat: Normal Respiratory: Generalized, Diminished, Wheezes Cardiovascular: Normal : Normal Auscultation: Bowel Sounds: Normal Palpation: Normal Tenderness: Normal Skin: Normal Musculoskeletal: Normal Psychiatric: Normal Mood Description: Calm Affect: Normal Speech Pattern: Clear, Appropriate - Laboratory and Diagnostics Result Diagrams: 02/11/20 04:20 02/11/20 04:20 Labs: Laboratory WBC 10.9 X10^3/uL (3.6-10.0) H 02/11/20 04:20 RBC 3.21 X10^6/uL (3.5-5.4) L 02/11/20 04:20 Hgb 9.5 g/dL (12.0-16.0) L 02/11/20 04:20 Hct 27.9 % (36.0-47.0) L 02/11/20 04:20 MCV 86.7 fL (80.0-100.0) 02/11/20 04:20 MCH 29.5 pg (27.0-34.0) 02/11/20 04:20 MCHC 34.0 g/dL (33.0-35.0) 02/11/20 04:20 RDW 14.5 % (11.6-16.5) 02/11/20 04:20 Plt Count 152 X10^3/uL (150.0-450.0) 02/11/20 04:20 Plt Count Comment Adequate (ADEQUATE) 02/11/20 04:20 MPV 8.2 fL (7.4-11.0) 02/11/20 04:20 Neut % (Auto) 93.6 % (42.0-75.0) H 02/11/20 04:20 Lymph % (Auto) 1.9 % (21.0-51.0) L 02/11/20 04:20 [place] % (Auto) 4.3 % (0.0-13.0) 02/11/20 04:20 Eos % (Auto) 0.0 % (0.9-2.9) L 02/11/20 04:20 Baso % (Auto) 0.2 % (0.2-1.0) 02/11/20 04:20 Neut # (Auto) 10.2 x10^3/uL (2.2-4.8) H 02/11/20 04:20 Lymph # (Auto) 0.2 X10^3/uL (1.3-2.9) L 02/11/20 04:20 [place] # (Auto) 0.5 x10^3/uL (0.3-0.8) 02/11/20 04:20 Eos # (Auto) 0.0 x10^3/uL (0.0-0.2) 02/11/20 04:20 Baso # (Auto) 0.0 X10^3/uL (0.0-0.1) 02/11/20 04:20 Absolute Nucleated RBC 0.0 /100WBC 02/11/20 04:20 Total Counted 100 02/11/20 04:20 Neutrophils % (Manual) 97 % (39-76) H 02/11/20 04:20 Band Neutrophils % 2 % (0-10) 02/07/20 05:15 Lymphocytes % (Manual) Not Reportable 02/11/20 04:20 Monocytes % (Manual) 3 % (4-9) L 02/11/20 04:20 Eosinophils % (Manual) 3 % (0-6) 02/05/20 04:11 Plt Morphology Comment Normal (NORMAL) 02/11/20 04:20 RBC Morphology Normal (NORMAL) 02/11/20 04:20 Hypochromasia Slight A 02/04/20 04:11 Anisocytosis Slight A 02/04/20 04:11 PT 13.5 SECONDS (11.8-14.3) 02/02/20 01:20 INR Target Range - 02/02/20 01:20 INR 1.06 (0.8-1.3) 02/02/20 01:20 Sample Site Rr 02/11/20 06:02 ABG pH 7.490 (7.35-7.45) H 02/11/20 06:02 ABG pCO2 53.0 mmHg (35.0-45.0) H* 02/11/20 06:02 ABG pO2 53.0 mmHg (80.0-100.0) L 02/11/20 06:02 ABG HCO3 40.4 mmol/L (22-26) H* 02/11/20 06:02 ABG O2 Saturation 90.0 % (90-100) 02/11/20 06:02 ABG Base Excess 14.8 mmol/L (-2.0-2.0) H 02/11/20 06:02 Dominik Test Pos 02/11/20 06:02 A-a Gradient 273.0 mmHg 02/11/20 06:02 FiO2 55.0 02/11/20 06:02 Blood Gas Comments Wilian well gmb 02/11/20 06:02 Sodium 136 mmol/L (136-145) 02/11/20 04:20 Corrected Sodium 139 mmol/L (136-145) 02/11/20 04:20 Potassium 3.4 mmol/L (3.5-5.1) L 02/11/20 04:20 Chloride 97 mmol/L (98-107) L 02/11/20 04:20 Carbon Dioxide 35.6 mmol/L (21-32) H 02/11/20 04:20 BUN 17 mg/dL (7-18) 02/11/20 04:20 Creatinine 0.88 mg/dL (0.55-1.02) 02/11/20 04:20 Est GFR (MDRD) Af Amer > 60 (>60) 02/11/20 04:20 Est GFR (MDRD) Non-Af > 60 (>60) 02/11/20 04:20 Glucose 221 mg/dL (65-99) H 02/11/20 04:20 Calcium 8.1 mg/dL (8.5-10.1) L 02/11/20 04:20 Corrected Calcium TNP 02/11/20 04:20 Magnesium 1.9 mg/dL (1.7-2.9) 02/11/20 04:20 Ferritin 192 ng/mL (8-252) 02/10/20 04:30 Total Bilirubin 1.10 mg/dL (0.2-1.0) H 02/11/20 04:20 AST 17 Units/L (15-37) 02/11/20 04:20 ALT 27 Units/L (12-78) 02/11/20 04:20 Alkaline Phosphatase 58 Units/L (46-116) 02/11/20 04:20 Troponin I < 0.02 ng/mL (0-1.5) 01/28/20 01:35 C-Reactive Protein 1.50 mg/L (0-3.0) 02/11/20 04:20 Total Protein 5.4 g/dL (6.4-8.2) L 02/11/20 04:20 Albumin 3.6 g/dL (3.4-5.0) 02/11/20 04:20 Globulin 1.8 g/dL (2.5-4.5) L 02/11/20 04:20 Albumin/Globulin Ratio 2.0 Ratio (1.1-2.1) 02/11/20 04:20 Specimen Type Catherized urine 01/29/20 04:50 Urine Color Yellow (YELLOW) 01/29/20 04:50 Urine Appearance Clear (CLEAR) 01/29/20 04:50 Urine pH 6.0 (5.0 - 8.0) 01/29/20 04:50 Ur Specific [place] 1.020 (1.000-1.030) 01/29/20 04:50 Urine Protein 1+ (NEGATIVE) 01/29/20 04:50 Urine Glucose (UA) 1+ (NEGATIVE) 01/29/20 04:50 Urine Ketones 1+ (NEGATIVE) 01/29/20 04:50 Urine Occult Blood Negative (NEGATIVE) 01/29/20 04:50 Urine Nitrite Negative (NEGATIVE) 01/29/20 04:50 Urine Bilirubin Negative (NEGATIVE) 01/29/20 04:50 Urine Urobilinogen Normal (NORMAL) 01/29/20 04:50 Ur Leukocyte Esterase Negative (NEGATIVE) 01/29/20 04:50 Urine RBC None seen /HPF (0-3) 01/29/20 04:50 Urine WBC None seen /HPF (0-5) 01/29/20 04:50 Ur Squamous Epith Cells Rare /HPF (NEGATIVE) 01/29/20 04:50 Urine Bacteria Negative /HPF (NEGATIVE) 01/29/20 04:50 Ur Culture Indicated? No/not indicated 01/29/20 04:50 Miscellaneous Test Covid 19 02/05/20 12:20 Blood Type A NEGATIVE 01/28/20 01:35 Antibody Screen Negative 01/28/20 01:35 - Plan (1) Pneumonia due to 2019 novel coronavirus Status: Acute Plan: NORMAL SALINE AT KVO, ALBUMIN 25% IV DAILY, PROCALAMINE AT 40 ML/HR, PEPCID IV, PROTONIX IV, GI COCKTAIL, AZITHROMYCIN 500MG IV DAILY, REMDESIVIR 100MG IV DAILY, SOLU-MEDROL 125MG IV Q8H, DUONEBS QID, PULMICORT NEBS BID, MUCOMYST IN NEB [place], LOVENOX 30MG SC BID, TUSSIONEX, ROBITUSSIN, THE POTASSIUM AND MAGNESIUM PROTOCOLS, AND HOME MEDICATIONS WERE RESUMED. WE WILL ORDER CONVALESCENT PLASMA TO BE TRANSFUSED WHEN IT IS AVAILABLE. (2) Hypoxia Status: Acute (3) Acute hypokalemia Status: Acute
[2020-02-11] MEDS: PROTONIX INJ 40 MG VIAL IVP SCH ×2 (11:00→22:15)
[2020-02-11] MEDS: PEPCID 20 MG IV PREMIX* 20 MG/50 ML BAG IV SCH ×2 (12:30→22:15)
[2020-02-11] MEDS ORDERED: SOLU-Medrol 125 MG VIAL ONE (14:06)
[2020-02-11] MEDS: COLACE CAP 100 MG PO SCH (22:14)
[2020-02-12] MEDS: NS 1000 ML 1,000 ML IV SCH (02:00)
[2020-02-12 05:17] LABS: BASOPHILS % (AUTO) 0 % (0.2-1.0); HEMATOCRIT 28.8 % (36.0-47.0); HEMOGLOBIN 9.7 g/dL (12.0-16.0); LYMPHOCYTES # (AUTO) 0.1 X10^3/uL (1.3-2.9); LYMPHOCYTES % (AUTO) 1.1 % (21.0-51.0); MEAN CORPUSCULAR HEMOGLOBIN 29.2 pg (27.0-34.0); MEAN CORPUSCULAR HGB CONC 33.5 g/dL (33.0-35.0); MEAN PLATELET VOLUME 8.5 fL (7.4-11.0); MONOCYTES # (AUTO) 0.4 x10^3/uL (0.3-0.8); MONOCYTES % (AUTO) 3.6 % (0.0-13.0); NEUTROPHILS # (AUTO) 11.4 x10^3/uL (2.2-4.8); NEUTROPHILS % (AUTO) 95.3 % (42.0-75.0); PLATELET COUNT 128 X10^3/uL (150.0-450.0); RED BLOOD COUNT 3.31 X10^6/uL (3.5-5.4); RED CELL DISTRIBUTION WIDTH 14.3 % (11.6-16.5); WHITE BLOOD COUNT 11.9 X10^3/uL (3.6-10.0)
[2020-02-12 05:36] LABS: ALANINE AMINOTRANSFERASE 27 Units/L (12-78); ALBUMIN 3.7 g/dL (3.4-5.0); ALKALINE PHOSPHATASE 62 Units/L (46-116); ASPARTATE AMINO TRANSFERASE 20 Units/L (15-37); BLOOD UREA NITROGEN 15 mg/dL (7-18); CALCIUM 8.1 mg/dL (8.5-10.1); CARBON DIOXIDE 39.4 mmol/L (21-32); CHLORIDE 96 mmol/L (98-107); COR NA(FOR HYPERGLY) 138 mmol/L (136-145); CREATININE 0.79 mg/dL (0.55-1.02); MAGNESIUM 2.2 mg/dL (1.7-2.9); SODIUM 135 mmol/L (136-145); TOTAL PROTEIN 5.9 g/dL (6.4-8.2); eGFR NON BLACK RACES > 60 (>60)
[2020-02-12 06:06] LABS: ABG BASE EXCESS 16.4 mmol/L (-2.0-2.0)
--- NOTE | 2020-02-12 06:06 | RAD ---
HISTORYSOBSTUDYCHEST, 1 [id number] trachea is midline. The cardiac silhouette is stable. Diffuse bilateral interstitial opacities unchanged. No pneumothorax. The bony thorax is unremarkable.IMPRESSIONDiffuse bilateral interstitial opacities unchanged from 02/11/2020Electronically signed by: Suleiman Juarez (Feb 12, 2020 06:04:42)
[2020-02-12 06:08] LABS: ABG HCO3 41.6 mmol/L (22-26)
[2020-02-12 06:09] LABS: ABG ALLEN TEST POS
[2020-02-12 06:19] LABS: BAND NEUTROPHILS % 2 % (0-10); PLATELET MORPHOLOGY COMMENT NORMAL (NORMAL)
[2020-02-12] MEDS: SOLU-Medrol 125 MG VIAL IVP SCH (06:35)
[2020-02-12] MEDS: XANAX PO SCH ×3 (06:35→21:34)
[2020-02-12] MEDS: MORPHINE SULFATE INJ 2 MG INJ IVP PRN ×2 (07:42→21:34)
[2020-02-12] MEDS ORDERED: HALDOL INJ ONE (08:00)
[2020-02-12] MEDS ORDERED: HALDOL INJ IM ONE (08:02)
[2020-02-12] MEDS: ALBUMIN HUMAN 25%- 100 ML 100 ML IV SCH (08:05)
[2020-02-12] MEDS: PROTONIX INJ 40 MG VIAL IVP SCH ×2 (09:00→21:33)
[2020-02-12] MEDS: PEPCID 20 MG IV PREMIX* 20 MG/50 ML BAG IV SCH ×2 (09:01→21:32)
[2020-02-12] MEDS: MUCOMYST 20% 200 MG/ML NEB SCH ×2 (09:45→20:38)
[2020-02-12] MEDS: DUONEB 0.5 MG/3 MG (3 mL) NEB SCH ×4 (09:45→20:38)
[2020-02-12] MEDS: PULMICORT NEB TX 0.5 MG NEB SCH ×2 (09:45→20:38)
[2020-02-12] MEDS: ZITHROMAX INJ 500 MG VIAL 500 MG in NS 250 ML IV 250 ML IV SCH (09:55)
[2020-02-12] MEDS: NAMENDA TAB 10 MG PO SCH (10:00)
[2020-02-12] MEDS: HYDROCHLOROTHIAZIDE 25 MG TAB PO SCH (10:00)
[2020-02-12] MEDS: LEVSIN/MAALOX/LIDOC VISC PO SCH ×4 (10:00→21:32)
[2020-02-12] MEDS: LEXAPRO PO SCH (10:00)
[2020-02-12] MEDS: ROBITUSSIN DM PO SCH ×4 (10:00→21:33)
[2020-02-12] MEDS: MILK OF MAGNESIA PO SCH ×2 (10:00→21:32)
[2020-02-12] MEDS ORDERED: LEXAPRO ONE (10:00)
[2020-02-12] MEDS: PLAVIX PO SCH (10:00)
[2020-02-12] MEDS: ZINC SULFATE PO SCH ×2 (10:00→21:33)
[2020-02-12] MEDS: ASPIRIN EC 81 MG PO SCH (10:00)
[2020-02-12] MEDS: TUSSIONEX PENNKINETIC SUSP PO SCH ×2 (10:00→21:34)
[2020-02-12] MEDS: ARICEPT TAB 10 MG PO SCH (10:00)
[2020-02-12] MEDS: ZyrTEC TAB 10 MG PO SCH (10:00)
[2020-02-12] MEDS: KLOR-CON PO PRN (10:33)
--- NOTE | 2020-02-12 10:59 | PCM.PROG ---
Progress Note - Progress Note for Day of Date of Exam: 02/11/20 - Subjective Subjective: IS BEING TREATED FOR PNEUMONIA DUE TO COVID-19, HYPOXIA, RESPIRATORY DISTRESS, AND HYPOKALEMIA. TODAY, SHE IS ALERT AND ORIENTED, LYING IN BED ON MORNING ROUNDS. SHE CONTINUES WITH COMPLAINTS OF SHORTNESS OF BREATH AND WEAKNESS TODAY. SHE IS CURRENTLY UTILIZING THE BIPAP. SHE DENIES IMPROVEMENT IN SYMPTOMS SINCE ONE DAY PRIOR. ON EXAMINATION, HEART IS REGULAR IN RATE AND RHYTHM. BILATERAL LUNGS ARE NOTED WITH SCATTERED WHEEZING THROUGHOUT. ABDOMEN IS ROUND, SOFT, AND NON-TENDER WITH NORMAL BOWEL SOUNDS NOTED IN ALL QUADRANTS. HER VITALS THIS MORNING ARE: 97.9-65-24-96%BIPAP-134/62. LABS WERE OBTAINED. ABNORMAL LAB VALUES INCLUDE THE FOLLOWING: WBC 10.9, RBC 3.21, HGB 9.5, HCT 27.9, POTASSIUM 3.4, CHLORIDE 97, CARBON DIOXIDE 35.6, GLUCOSE 221, CALCIUM 8.1, TOTAL BILI 1.10, TOTAL PROTEIN 5.4, GLOBULIN 1.8. AN ABG WAS OBTAINED AND REVEALED: PH 7.490, PC02 53, P02 53, HC03 40.4, 02 SAT 90, BASE EXCESS 14.8, FI02 55. A CHEST XRAY WAS OBTAINED AND REVEALED: Cardiac silhouette is stably enlarged. No significant change in bilateral predominantly interstitial opacities. Suspect a small left pleural effusion. No pneumothorax. Low lung volumes. SHE HAS RECEIVED THREE UNITS OF CONVALESCENT PLASMA SINCE ADMISSION. SHE IS CURRENTLY RECEIVING NORMAL SALINE AT KVO, PROCALAMINE AT 40 ML/HR, ALBUMIN 25% IV DAILY, AZITHROMYCIN 500MG IV DAILY, REMDESIVIR 100MG IV DAILY, SOLU-MEDROL 125MG IV Q8H, DUONEBS QID, PULMICORT NEBS BID, MUCOMYST IN NEB [place], PEPCID 20MG IV Q12H, PROTONIX 40MG IV BID, LOVENOX 30MG SC BID, MORPHINE 2MG IV Q6H PRN, TUSSIONEX 5ML PO Q12H, ROBITUSSIN DM 10ML PO Q4H, THE POTASSIUM AND MAGNESIUM PROTOCOLS, AND HOME MEDICATIONS WERE RESUMED. WE WILL CONTINUE WITH CURRENT PLAN OF CARE TODAY AND INCREASE SOLU-MEDROL TO 125 MG IV Q6H. OTHERWISE, WE PLAN TO FOLLOW UP WITH AM LABS, CHEST XRAY, AND ABG AND CONTINUE TO MONITOR. - Past Medical Family Social History Past Med/Fam/Surg Hx: No changes since H&P Allergies: Allergies levofloxacin Allergy (Verified 01/27/20 21:24) - Review of Systems ROS: No change since H&P - Vital Signs and I&O's Vital Signs: Temperature 98.6 F Pulse Rate [Left Brachial] 74 Pulse Rate 63 Respiratory Rate 51 Blood Pressure [Left Arm] 139/62 Blood Pressure 151/68 O2 Sat by Pulse Oximetry 92 Intake and Output: Intake & Output 02/09/20 02/10/20 02/11/20 02/12/20 11:59 11:59 11:59 11:59 Intake Total 3570 / 3570 2610 / 2610 1633 / 1633 2089 Output Total 950 / 950 500 / 500 Balance 2620 / 2620 2109 / 0 1633 / 1633 2089 - Physical Exam Oriented: Normal Eyes: Normal Ear: Normal Nose: Normal Throat: Normal Respiratory: Generalized, Diminished, Wheezes Cardiovascular: Normal : Normal Auscultation: Bowel Sounds: Normal Tenderness: Normal Skin: Normal Musculoskeletal: Normal Psychiatric: Normal Mood Description: Calm Affect: Normal Speech Pattern: Clear, Appropriate - Laboratory and Diagnostics Result Diagrams: 02/12/20 04:50 02/12/20 04:50 Labs: Laboratory WBC 11.9 X10^3/uL (3.6-10.0) H 02/12/20 04:50 RBC 3.31 X10^6/uL (3.5-5.4) L 02/12/20 04:50 Hgb 9.7 g/dL (12.0-16.0) L 02/12/20 04:50 Hct 28.8 % (36.0-47.0) L 02/12/20 04:50 MCV 87.0 fL (80.0-100.0) 02/12/20 04:50 MCH 29.2 pg (27.0-34.0) 02/12/20 04:50 MCHC 33.5 g/dL (33.0-35.0) 02/12/20 04:50 RDW 14.3 % (11.6-16.5) 02/12/20 04:50 Plt Count 128 X10^3/uL (150.0-450.0) L 02/12/20 04:50 Plt Count Comment Decreased (ADEQUATE) A 02/12/20 04:50 MPV 8.5 fL (7.4-11.0) 02/12/20 04:50 Neut % (Auto) 95.3 % (42.0-75.0) H 02/12/20 04:50 Lymph % (Auto) 1.1 % (21.0-51.0) L 02/12/20 04:50 [place] % (Auto) 3.6 % (0.0-13.0) 02/12/20 04:50 Eos % (Auto) 0.0 % (0.9-2.9) L 02/12/20 04:50 Baso % (Auto) 0 % (0.2-1.0) L 02/12/20 04:50 Neut # (Auto) 11.4 x10^3/uL (2.2-4.8) H 02/12/20 04:50 Lymph # (Auto) 0.1 X10^3/uL (1.3-2.9) L 02/12/20 04:50 [place] # (Auto) 0.4 x10^3/uL (0.3-0.8) 02/12/20 04:50 Eos # (Auto) 0.0 x10^3/uL (0.0-0.2) 02/12/20 04:50 Baso # (Auto) 0.0 X10^3/uL (0.0-0.1) 02/12/20 04:50 Absolute Nucleated RBC 0.3 /100WBC 02/12/20 04:50 Total Counted 100 02/12/20 04:50 Neutrophils % (Manual) 95 % (39-76) H 02/12/20 04:50 Band Neutrophils % 2 % (0-10) 02/12/20 04:50 Lymphocytes % (Manual) 1 % (13-43) L 02/12/20 04:50 Monocytes % (Manual) 2 % (4-9) L 02/12/20 04:50 Eosinophils % (Manual) 3 % (0-6) 02/05/20 04:11 Plt Morphology Comment Normal (NORMAL) 02/12/20 04:50 RBC Morphology Normal (NORMAL) 02/12/20 04:50 Hypochromasia Slight A 02/04/20 04:11 Anisocytosis Slight A 02/04/20 04:11 PT 13.5 SECONDS (11.8-14.3) 02/02/20 01:20 INR Target Range - 02/02/20 01:20 INR 1.06 (0.8-1.3) 02/02/20 01:20 Sample Site [place] 02/12/20 05:59 ABG pH 7.520 (7.35-7.45) H 02/12/20 05:59 ABG pCO2 51.0 mmHg (35.0-45.0) H* 02/12/20 05:59 ABG pO2 47.0 mmHg (80.0-100.0) L* 02/12/20 05:59 ABG HCO3 41.6 mmol/L (22-26) H* 02/12/20 05:59 ABG O2 Saturation 87.0 % (90-100) L 02/12/20 05:59 ABG Base Excess 16.4 mmol/L (-2.0-2.0) H 02/12/20 05:59 Dominik Test Pos 02/12/20 05:59 A-a Gradient 246.0 mmHg 02/12/20 05:59 FiO2 50.0 02/12/20 05:59 Blood Gas Comments Wilian well-mtf 02/12/20 05:59 Sodium 135 mmol/L (136-145) L 02/12/20 04:50 Corrected Sodium 138 mmol/L (136-145) 02/12/20 04:50 Potassium 3.1 mmol/L (3.5-5.1) L 02/12/20 04:50 Chloride 96 mmol/L (98-107) L 02/12/20 04:50 Carbon Dioxide 39.4 mmol/L (21-32) H 02/12/20 04:50 BUN 15 mg/dL (7-18) 02/12/20 04:50 Creatinine 0.79 mg/dL (0.55-1.02) 02/12/20 04:50 Est GFR (MDRD) Af Amer > 60 (>60) 02/12/20 04:50 Est GFR (MDRD) Non-Af > 60 (>60) 02/12/20 04:50 Glucose 241 mg/dL (65-99) H 02/12/20 04:50 Calcium 8.1 mg/dL (8.5-10.1) L 02/12/20 04:50 Corrected Calcium TNP 02/12/20 04:50 Magnesium 2.2 mg/dL (1.7-2.9) 02/12/20 04:50 Ferritin 192 ng/mL (8-252) 02/10/20 04:30 Total Bilirubin 1.40 mg/dL (0.2-1.0) H 02/12/20 04:50 AST 20 Units/L (15-37) 02/12/20 04:50 ALT 27 Units/L (12-78) 02/12/20 04:50 Alkaline Phosphatase 62 Units/L (46-116) 02/12/20 04:50 Troponin I < 0.02 ng/mL (0-1.5) 01/28/20 01:35 C-Reactive Protein 36.60 mg/L (0-3.0) H 02/12/20 04:50 Total Protein 5.9 g/dL (6.4-8.2) L 02/12/20 04:50 Albumin 3.7 g/dL (3.4-5.0) 02/12/20 04:50 Globulin 2.2 g/dL (2.5-4.5) L 02/12/20 04:50 Albumin/Globulin Ratio 1.7 Ratio (1.1-2.1) 02/12/20 04:50 Specimen Type Catherized urine 01/29/20 04:50 Urine Color Yellow (YELLOW) 01/29/20 04:50 Urine Appearance Clear (CLEAR) 01/29/20 04:50 Urine pH 6.0 (5.0 - 8.0) 01/29/20 04:50 Ur Specific [place] 1.020 (1.000-1.030) 01/29/20 04:50 Urine Protein 1+ (NEGATIVE) 01/29/20 04:50 Urine Glucose (UA) 1+ (NEGATIVE) 01/29/20 04:50 Urine Ketones 1+ (NEGATIVE) 01/29/20 04:50 Urine Occult Blood Negative (NEGATIVE) 01/29/20 04:50 Urine Nitrite Negative (NEGATIVE) 01/29/20 04:50 Urine Bilirubin Negative (NEGATIVE) 01/29/20 04:50 Urine Urobilinogen Normal (NORMAL) 01/29/20 04:50 Ur Leukocyte Esterase Negative (NEGATIVE) 01/29/20 04:50 Urine RBC None seen /HPF (0-3) 01/29/20 04:50 Urine WBC None seen /HPF (0-5) 01/29/20 04:50 Ur Squamous Epith Cells Rare /HPF (NEGATIVE) 01/29/20 04:50 Urine Bacteria Negative /HPF (NEGATIVE) 01/29/20 04:50 Ur Culture Indicated? No/not indicated 01/29/20 04:50 Miscellaneous Test Covid 19 02/05/20 12:20 Blood Type A NEGATIVE 01/28/20 01:35 Antibody Screen Negative 01/28/20 01:35 - Plan (1) Pneumonia due to 2019 novel coronavirus Status: Acute Plan: NORMAL SALINE AT KVO, ALBUMIN 25% IV DAILY, PROCALAMINE AT 40 ML/HR, PEPCID IV, PROTONIX IV, GI COCKTAIL, AZITHROMYCIN 500MG IV DAILY, REMDESIVIR 100MG IV DAILY, SOLU-MEDROL 125MG IV Q6H, DUONEBS QID, PULMICORT NEBS BID, MUCOMYST IN NEB [place], LOVENOX 30MG SC BID, TUSSIONEX, ROBITUSSIN, THE POTASSIUM AND MAGNESIUM PROTOCOLS, AND HOME MEDICATIONS WERE RESUMED. WE WILL ORDER CONVALESCENT PLASMA TO BE TRANSFUSED WHEN IT IS AVAILABLE. (2) Hypoxia Status: Acute (3) Acute hypokalemia Status: Acute
--- NOTE | 2020-02-12 11:08 | PCM.PROG ---
Progress Note - Progress Note for Day of Date of Exam: 02/12/20 - Subjective Subjective: IS BEING TREATED FOR PNEUMONIA DUE TO COVID-19, HYPOXIA, RESPIRATORY DISTRESS, AND HYPOKALEMIA. TODAY, SHE IS ALERT AND ORIENTED, SITTING UP IN CHAIR ON MORNING ROUNDS. SHE CONTINUES WITH COMPLAINTS OF SHORTNESS OF BREATH AND WEAKNESS TODAY. SHE REPORTS SLIGHT IMPROVEMENT IN SYMTOMS, HOWEVER, SHE REPORTS FEELING VERY ANXIOUS. STAFF REPORTS THAT SHE WAS CONFUSED, ANXIOUS, AND AGITATED THROUGH THE NIGHT. THIS NEW INCREASE IN ANXIETY IS LIKELY RELATED TO THE INCREASE IN STEROID DOSE. ON EXAMINATION, HEART IS REGULAR IN RATE AND RHYTHM. BILATERAL LUNGS ARE NOTED WITH SCATTERED WHEEZING THROUGHOUT. ABDOMEN IS ROUND, SOFT, AND NON-TENDER WITH NORMAL BOWEL SOUNDS NOTED IN ALL QUADRANTS. HER VITALS THIS MORNING ARE: 98.6-71-30-97%BIPAP-152/68. LABS WERE OBTAINED. ABNORMAL LAB VALUES INCLUDE THE FOLLOWING: WBC 11.9, RBC 3.31, HGB 9.7, HCT 28.8, PLT COUNT 128, SODIUM 135, POTASSIUM 3.1, CHLORIDE 96, CARBON DIOXIDE 39.4, GLUCOSE 241, CALCIUM 8.1, TOTAL BILI 1.40, CRP 36.60, TOTAL PROTEIN 5.9. AN ABG WAS OBTAINED AND REVEALED: PH 7.520, PC02 51, P02 47, HC03 41.6, 02 SAT 87, BASE EXCESS 16.4, FI02 50. A CHEST XRAY WAS OBTAINED AND REVEALED: Diffuse bilateral interstitial opacities unchanged from 02/11/2020. SHE HAS RECEIVED THREE UNITS OF CONVALESCENT PLASMA SINCE ADMISSION. SHE IS CURRENTLY RECEIVING NORMAL SALINE AT KVO, PROCALAMINE AT 40 ML/HR, ALBUMIN 25% IV DAILY, SABRINA THROMYCIN 500MG IV DAILY, REMDESIVIR 100MG IV DAILY, SOLU-MEDROL 125MG IV Q8H, DUONEBS QID, PULMICORT NEBS BID, MUCOMYST IN NEB [place], PEPCID 20MG IV Q12H, PROTONIX 40MG IV BID, LOVENOX 30MG SC BID, MORPHINE 2MG IV Q6H PRN, TUSSIONEX 5ML PO Q12H, ROBITUSSIN DM 10ML PO Q4H, THE POTASSIUM AND MAGNESIUM PROTOCOLS, AND HOME MEDICATIONS WERE RESUMED. 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 OTHERWISE, WE PLAN TO FOLLOW UP WITH AM LABS, CHEST XRAY, AND ABG AND CONTINUE TO MONITOR. - Past Medical Family Social History Past Med/Fam/Surg Hx: No changes since H&P Allergies: Allergies levofloxacin Allergy (Verified 01/27/20 21:24) - Review of Systems ROS: No change since H&P - Vital Signs and I&O's Vital Signs: Temperature 98.6 F Pulse Rate [Left Brachial] 74 Pulse Rate 63 Respiratory Rate 51 Blood Pressure [Left Arm] 139/62 Blood Pressure 151/68 O2 Sat by Pulse Oximetry 92 Intake and Output: Intake & Output 02/09/20 02/10/20 02/11/20 02/12/20 11:59 11:59 11:59 11:59 Intake Total 3570 / 3570 2610 / 2610 1633 / 1633 2089 Output Total 950 / 950 500 / 500 Balance 2620 / 2620 2109 / 2110 1633 / 1633 2089 - Physical Exam Oriented: Normal Eyes: Normal Ear: Normal Nose: Normal Throat: Normal Respiratory: Generalized, Diminished, Wheezes Cardiovascular: Normal : Normal Auscultation: Bowel Sounds: Normal Palpation: Normal Tenderness: Normal Skin: Normal Musculoskeletal: Normal Psychiatric: Anxiety, Agitation Mood Description: Anxious Affect: Anxious Speech Pattern: Clear, Appropriate - Laboratory and Diagnostics Result Diagrams: 02/12/20 04:50 02/12/20 04:50 Labs: Laboratory WBC 11.9 X10^3/uL (3.6-10.0) H 02/12/20 04:50 RBC 3.31 X10^6/uL (3.5-5.4) L 02/12/20 04:50 Hgb 9.7 g/dL (12.0-16.0) L 02/12/20 04:50 Hct 28.8 % (36.0-47.0) L 02/12/20 04:50 MCV 87.0 fL (80.0-100.0) 02/12/20 04:50 MCH 29.2 pg (27.0-34.0) 02/12/20 04:50 MCHC 33.5 g/dL (33.0-35.0) 02/12/20 04:50 RDW 14.3 % (11.6-16.5) 02/12/20 04:50 Plt Count 128 X10^3/uL (150.0-450.0) L 02/12/20 04:50 Plt Count Comment Decreased (ADEQUATE) A 02/12/20 04:50 MPV 8.5 fL (7.4-11.0) 02/12/20 04:50 Neut % (Auto) 95.3 % (42.0-75.0) H 02/12/20 04:50 Lymph % (Auto) 1.1 % (21.0-51.0) L 02/12/20 04:50 Grand % (Auto) 3.6 % (0.0-13.0) 02/12/20 04:50 Eos % (Auto) 0.0 % (0.9-2.9) L 02/12/20 04:50 Baso % (Auto) 0 % (0.2-1.0) L 02/12/20 04:50 Neut # (Auto) 11.4 x10^3/uL (2.2-4.8) H 02/12/20 04:50 Lymph # (Auto) 0.1 X10^3/uL (1.3-2.9) L 02/12/20 04:50 Grand # (Auto) 0.4 x10^3/uL (0.3-0.8) 02/12/20 04:50 Eos # (Auto) 0.0 x10^3/uL (0.0-0.2) 02/12/20 04:50 Baso # (Auto) 0.0 X10^3/uL (0.0-0.1) 02/12/20 04:50 Absolute Nucleated RBC 0.3 /100WBC 02/12/20 04:50 Total Counted 100 02/12/20 04:50 Neutrophils % (Manual) 95 % (39-76) H 02/12/20 04:50 Band Neutrophils % 2 % (0-10) 02/12/20 04:50 Lymphocytes % (Manual) 1 % (13-43) L 02/12/20 04:50 Monocytes % (Manual) 2 % (4-9) L 02/12/20 04:50 Eosinophils % (Manual) 3 % (0-6) 02/05/20 04:11 Plt Morphology Comment Normal (NORMAL) 02/12/20 04:50 RBC Morphology Normal (NORMAL) 02/12/20 04:50 Hypochromasia Slight A 02/04/20 04:11 Anisocytosis Slight A 02/04/20 04:11 PT 13.5 SECONDS (11.8-14.3) 02/02/20 01:20 INR Target Range - 02/02/20 01:20 INR 1.06 (0.8-1.3) 02/02/20 01:20 Sample Site Lrad 02/12/20 05:59 ABG pH 7.520 (7.35-7.45) H 02/12/20 05:59 ABG pCO2 51.0 mmHg (35.0-45.0) H* 02/12/20 05:59 ABG pO2 47.0 mmHg (80.0-100.0) L* 02/12/20 05:59 ABG HCO3 41.6 mmol/L (22-26) H* 02/12/20 05:59 ABG O2 Saturation 87.0 % (90-100) L 02/12/20 05:59 ABG Base Excess 16.4 mmol/L (-2.0-2.0) H 02/12/20 05:59 Dominik Test Pos 02/12/20 05:59 A-a Gradient 246.0 mmHg 02/12/20 05:59 FiO2 50.0 02/12/20 05:59 Blood Gas Comments Wilian well-mtf 02/12/20 05:59 Sodium 135 mmol/L (136-145) L 02/12/20 04:50 Corrected Sodium 138 mmol/L (136-145) 02/12/20 04:50 Potassium 3.1 mmol/L (3.5-5.1) L 02/12/20 04:50 Chloride 96 mmol/L (98-107) L 02/12/20 04:50 Carbon Dioxide 39.4 mmol/L (21-32) H 02/12/20 04:50 BUN 15 mg/dL (7-18) 02/12/20 04:50 Creatinine 0.79 mg/dL (0.55-1.02) 02/12/20 04:50 Est GFR (MDRD) Af Amer > 60 (>60) 02/12/20 04:50 Est GFR (MDRD) Non-Af > 60 (>60) 02/12/20 04:50 Glucose 241 mg/dL (65-99) H 02/12/20 04:50 Calcium 8.1 mg/dL (8.5-10.1) L 02/12/20 04:50 Corrected Calcium TNP 02/12/20 04:50 Magnesium 2.2 mg/dL (1.7-2.9) 02/12/20 04:50 Ferritin 192 ng/mL (8-252) 02/10/20 04:30 Total Bilirubin 1.40 mg/dL (0.2-1.0) H 02/12/20 04:50 AST 20 Units/L (15-37) 02/12/20 04:50 ALT 27 Units/L (12-78) 02/12/20 04:50 Alkaline Phosphatase 62 Units/L (46-116) 02/12/20 04:50 Troponin I < 0.02 ng/mL (0-1.5) 01/28/20 01:35 C-Reactive Protein 36.60 mg/L (0-3.0) H 02/12/20 04:50 Total Protein 5.9 g/dL (6.4-8.2) L 02/12/20 04:50 Albumin 3.7 g/dL (3.4-5.0) 02/12/20 04:50 Globulin 2.2 g/dL (2.5-4.5) L 02/12/20 04:50 Albumin/Globulin Ratio 1.7 Ratio (1.1-2.1) 02/12/20 04:50 Specimen Type Catherized urine 01/29/20 04:50 Urine Color Yellow (YELLOW) 01/29/20 04:50 Urine Appearance Clear (CLEAR) 01/29/20 04:50 Urine pH 6.0 (5.0 - 8.0) 01/29/20 04:50 Ur Specific [place] 1.020 (1.000-1.030) 01/29/20 04:50 Urine Protein 1+ (NEGATIVE) 01/29/20 04:50 Urine Glucose (UA) 1+ (NEGATIVE) 01/29/20 04:50 Urine Ketones 1+ (NEGATIVE) 01/29/20 04:50 Urine Occult Blood Negative (NEGATIVE) 01/29/20 04:50 Urine Nitrite Negative (NEGATIVE) 01/29/20 04:50 Urine Bilirubin Negative (NEGATIVE) 01/29/20 04:50 Urine Urobilinogen Normal (NORMAL) 01/29/20 04:50 Ur Leukocyte Esterase Negative (NEGATIVE) 01/29/20 04:50 Urine RBC None seen /HPF (0-3) 01/29/20 04:50 Urine WBC None seen /HPF (0-5) 01/29/20 04:50 Ur Squamous Epith Cells Rare /HPF (NEGATIVE) 01/29/20 04:50 Urine Bacteria Negative /HPF (NEGATIVE) 01/29/20 04:50 Ur Culture Indicated? No/not indicated 01/29/20 04:50 Miscellaneous Test Covid 19 02/05/20 12:20 Blood Type A NEGATIVE 01/28/20 01:35 Antibody Screen Negative 01/28/20 01:35 - Plan (1) Pneumonia due to 2019 novel coronavirus Status: Acute Plan: NORMAL SALINE AT KVO, ALBUMIN 25% IV DAILY, PROCALAMINE AT 40 ML/HR, PEPCID IV, PROTONIX IV, GI COCKTAIL, AZITHROMYCIN 500MG IV DAILY, REMDESIVIR 100MG IV DAILY, SOLU-MEDROL 80MG IV Q8H, DUONEBS QID, PULMICORT NEBS BID, MUCOMYST IN NEB [place], LOVENOX 30MG SC BID, TUSSIONEX, ROBITUSSIN, THE POTASSIUM AND MAGNESIUM PROTOCOLS, AND HOME MEDICATIONS WERE RESUMED. WE WILL ORDER CONVALESCENT PLASMA TO BE TRANSFUSED WHEN IT IS AVAILABLE. (2) Hypoxia Status: Acute (3) Acute hypokalemia Status: Acute (4) Steroid-induced psychosis Status: Acute Plan: HALDOL 2MG IV Q6H PRN, DECREASE SOLU-MEDROL, CONTINUE TO MONITOR
[2020-02-12] MEDS: SOLU-Medrol 40 MG VIAL IVP SCH ×2 (14:19→21:34)
--- NOTE | 2020-02-12 16:03 | CT ---
HISTORYSOB, COVID-19STUDYCTA CHEST with IV contrastCOMPARISONChest x-ray 02/12/2020TECHNIQUEMultiple axial images of the chest were obtained from the thoracic inlet to the upper abdomen after the administration of IV contrast. 100 cc Omnipaque 350 IV contrast. 3D reconstructions utilizing axial MIPS imaging was performed and reviewed. Dose reduction techniques including Automated Exposure Control (AEC) and adjustment of mA and kV were utilized.FINDINGSDiffuse ground-glass and alveolar infiltrates are seen in the lungs. Findings are similar to prior chest x-ray. There is cardiomegaly and likely mild pulmonary venous congestion. Lung findings are probably a combination of COVID-19 infection and pulmonary edema. Trace left pleural effusion is seen. No pneumothorax is seen.Moderate-sized hiatus hernia is seen. There is fatty infiltration of the liver. Small likely reactive mediastinal lymph nodes are seen. Thoracic aorta is normal in size without evidence of dissection. No pulmonary embolus is seen.IMPRESSIONNo pulmonary embolus is seen.Likely CHF is present with diffuse lung infiltrates that are likely a combination of COVID-19 pneumonia and pulmonary edema.Electronically signed by: David Sloan (Feb 12, 2020 16:02:23)
[2020-02-12] MEDS: HALDOL INJ IVP PRN (16:40)
[2020-02-12] MEDS: COLACE CAP 100 MG PO SCH (21:31)
[2020-02-12] MEDS: ZOFRAN INJ 4 MG VIAL IVP PRN (21:35)
[2020-02-13] MEDS: MORPHINE SULFATE INJ 2 MG INJ IVP PRN ×2 (03:07→08:40)
[2020-02-13] MEDS: NS 1000 ML 1,000 ML IV SCH (05:08)
[2020-02-13 05:35] LABS: BASOPHILS % (AUTO) 0.3 % (0.2-1.0); HEMATOCRIT 26.3 % (36.0-47.0); HEMOGLOBIN 8.9 g/dL (12.0-16.0); LYMPHOCYTES # (AUTO) 0.1 X10^3/uL (1.3-2.9); LYMPHOCYTES % (AUTO) 0.9 % (21.0-51.0); MEAN CORPUSCULAR HEMOGLOBIN 29.6 pg (27.0-34.0); MEAN CORPUSCULAR VOLUME 87.1 fL (80.0-100.0); MEAN PLATELET VOLUME 8.8 fL (7.4-11.0); MONOCYTES # (AUTO) 0.2 x10^3/uL (0.3-0.8); MONOCYTES % (AUTO) 2.1 % (0.0-13.0); NEUTROPHILS # (AUTO) 11.1 x10^3/uL (2.2-4.8); NEUTROPHILS % (AUTO) 96.7 % (42.0-75.0); PLATELET COUNT 100 X10^3/uL (150.0-450.0); RED BLOOD COUNT 3.02 X10^6/uL (3.5-5.4); WHITE BLOOD COUNT 11.5 X10^3/uL (3.6-10.0)
[2020-02-13 05:47] LABS: ALANINE AMINOTRANSFERASE 25 Units/L (12-78); ALBUMIN 3.3 g/dL (3.4-5.0); ALKALINE PHOSPHATASE 65 Units/L (46-116); ASPARTATE AMINO TRANSFERASE 19 Units/L (15-37); BLOOD UREA NITROGEN 16 mg/dL (7-18); CARBON DIOXIDE 38.7 mmol/L (21-32); CHLORIDE 98 mmol/L (98-107); COR CA(FOR HYPOALB) 8.6 mg/dL (8.5-10.1); COR NA(FOR HYPERGLY) 141 mmol/L (136-145); CREATININE 0.81 mg/dL (0.55-1.02); SODIUM 138 mmol/L (136-145); TOTAL PROTEIN 5.6 g/dL (6.4-8.2); eGFR NON BLACK RACES > 60 (>60)
[2020-02-13] MEDS: SOLU-Medrol 40 MG VIAL IVP SCH ×2 (05:54→15:00)
[2020-02-13] MEDS: XANAX PO SCH ×2 (05:54→15:09)
--- NOTE | 2020-02-13 05:57 | RAD ---
HISTORYSOBSTUDYAP [id number]/28/2020FINDINGSHeart remains mildly enlarged. Persistent bilateral diffuse infiltrates, stable on the left and increasing slightly in the right upper lobe. There is no evidence for complicating extrapulmonary air collection or developing pleural fluid.IMPRESSIONPersistent infiltrates/pneumonia with slight apparent progression in the right lung.Electronically signed by: ALLA MENEZES (Feb 13, 2020 05:56:25)
[2020-02-13 06:00] LABS: BAND NEUTROPHILS % 3 % (0-10); PLATELET MORPHOLOGY COMMENT NORMAL (NORMAL)
[2020-02-13 06:27] LABS: ABG BASE EXCESS 20.4 mmol/L (-2.0-2.0)
[2020-02-13 06:29] LABS: ABG ALLEN TEST POS; ABG HCO3 47.2 mmol/L (22-26)
[2020-02-13] MEDS ORDERED: LEXAPRO ONE (07:07)
[2020-02-13] MEDS: PROTONIX INJ 40 MG VIAL IVP SCH (08:00)
[2020-02-13] MEDS: ALBUMIN HUMAN 25%- 100 ML 100 ML IV SCH (08:06)
[2020-02-13] MEDS: LEXAPRO PO SCH (08:20)
[2020-02-13] MEDS: ZINC SULFATE PO SCH (08:21)
[2020-02-13] MEDS: ROBITUSSIN DM PO SCH ×3 (08:21→17:41)
[2020-02-13] MEDS: ZyrTEC TAB 10 MG PO SCH (08:22)
[2020-02-13] MEDS: PLAVIX PO SCH (08:22)
[2020-02-13] MEDS: NAMENDA TAB 10 MG PO SCH (08:22)
[2020-02-13] MEDS: ASPIRIN EC 81 MG PO SCH (08:23)
[2020-02-13] MEDS: ARICEPT TAB 10 MG PO SCH (08:24)
[2020-02-13] MEDS: LEVSIN/MAALOX/LIDOC VISC PO SCH ×3 (08:25→17:41)
[2020-02-13] MEDS: HYDROCHLOROTHIAZIDE 25 MG TAB PO SCH (08:25)
[2020-02-13] MEDS: MILK OF MAGNESIA PO SCH (08:26)
[2020-02-13] MEDS: DUONEB 0.5 MG/3 MG (3 mL) NEB SCH ×4 (08:30→17:00)
[2020-02-13] MEDS: PULMICORT NEB TX 0.5 MG NEB SCH (08:30)
[2020-02-13] MEDS: PEPCID 20 MG IV PREMIX* 20 MG/50 ML BAG IV SCH (08:47)
[2020-02-13] MEDS ORDERED: LASIX IVP ONE (09:29)
[2020-02-13] MEDS: ZITHROMAX INJ 500 MG VIAL 500 MG in NS 250 ML IV 250 ML IV SCH (09:29)
[2020-02-13] MEDS ORDERED: LASIX IVP SCH ×2 (10:00→21:00)
[2020-02-13] MEDS: TUSSIONEX PENNKINETIC SUSP PO SCH (10:46)
[2020-02-13] MEDS: HALDOL INJ IVP PRN (12:49)
[2020-02-13] MEDS: K-DUR TAB 20 MEQ PO PRN (12:55)
[2020-02-13 17:15] LABS: ABG BASE EXCESS 24.9 mmol/L (-2.0-2.0)
[2020-02-13 17:16] LABS: ABG ALLEN TEST POS; ABG HCO3 49.3 mmol/L (22-26)
[2020-02-13] MEDS ORDERED: QUELICIN (OR ANECTINE) ONE (19:02)
[2020-02-13] MEDS ORDERED: DIPRIVAN VIAL 20 ML ONE ×3 (19:02→19:18)
[2020-02-13] MEDS ORDERED: DIPRIVAN VIAL IV ONE (19:18)
[2020-02-13] MEDS ORDERED: DIPRIVAN PREMIX 1 GRAM IV 1,000 MG/100 ML VIAL ONE (19:21)
[2020-02-13] MEDS ORDERED: POTASSIUM CHLORIDE LIQ 20 MEQ UDC NG ONE (19:33)
--- NOTE | 2020-02-13 19:34 | DR.UPDATE ---
H&P Update History and Physical Update: History and Physical reviewed and patient examined. Changes noted: NO Yes with the following:will intubate for worsening respiratory compromise H&P Reviewed: Yes Patient was examined?: Yes Procedures (ALL) - Intubation Time out performed: Yes Sedative: other (propofol) Mg given: 120mg paralytic: succinylchline (100mg) Laryngoscope: fiber optic video scope (glidescope 3) ET tube size: 7.5 Tube secured depth: 20 Tube secured location: teeth Tube placement confirmation: visualized tube passing through cords, equal breath sounds bilaterally, no breath sounds over epigastrium, comfirmation by capnometer Patient tolerated procedure: Yes Intubation complications: none
[2020-02-13] MEDS ORDERED: ZOSYN VIAL 4.5 GRAMS 4.5 G in NS 100 ML IV + SPIKE MINIBAG* 100 ML IV SCH (20:00)
--- NOTE | 2020-02-13 20:04 | RAD ---
STUDY: CHEST, 1 VIEWCOMPARISON: February 13, 2020HISTORY: POST INTUBATIONFINDINGS:An endotracheal tube has been placed with tip measuring 28 mm above the hern[place]. Persistent diffuse alveolar airspace disease is seen throughout the right and left lung which is not significantly changed from the prior study. The cardiomediastinal contour is stable. No pleural effusion or gross pneumothorax is seen.IMPRESSION:Tip of endotracheal tube is 28 mm above the carinaElectronically signed by: Cal Pereyra (Feb 13, 2020 20:04:02)
[2020-02-13 20:10] LABS: ABG BASE EXCESS 19.4 mmol/L (-2.0-2.0)
[2020-02-13 20:13] LABS: ABG ALLEN TEST POS; ABG HCO3 46.2 mmol/L (22-26)
--- NOTE | 2020-02-13 20:38 | RAD ---
STUDY: CHEST, 1 VIEWCOMPARISON: NoneHISTORY: OG TUBE PLACEMENTFINDINGS:The tip and side port of the enteric tube is seen below the diaphragm in the region of the stomach.IMPRESSION:THE TIP AND SIDE PORT OF THE ENTERIC TUBE IS IN THE STOMACH.Electronically signed by: Cal Pereyra (Feb 13, 2020 20:37:47)
[2020-02-14 03:19] VITALS: BP 102/57
== END 2020-02-13 21:10 | disposition short-term general hospital (02) | DRG 208 ==
LOC: ER 19:42 → MED/SURG 01-28 00:47 → ICU 02-01 10:50
PROVIDERS: ADMIT Internal Medicine; ATTEND Internal Medicine